=== PATIENT | male | born 1975 | race Caucasian/White ===

== ENCOUNTER 2016-12-31 16:36 | Observation (INO) | payer BC ==
[~2016-12-31 16:36] MED LIST: ISOVUE-370 76%-LOCM 1 ML ONE
--- NOTE | 2016-12-31 17:02 | RAD ---
PA AND LATERAL CHEST: 12/31/16 COMPARISON: 04/28/12 study. HISTORY: Chest pain. The heart size and mediastinum are within normal limits. The lungs are clear of infiltrates. No bony findings. IMPRESSION: 1. No active intrathoracic disease. 2. Nodular density seen in the left costophrenic angle is a stable finding as compared to the p rior exam. POS: [facility]
[2016-12-31 17:40] LABS: #Basophils 0.1 thou/uL (0.0-0.2); #Eosinphils 0.5 thou/uL (0.0-0.7); #Lymphocytes 4.7 thou/uL (1.20-3.40); #Monocytes 1.3 thou/uL (0.11-0.59); #Neutrophils 3.8 thou/uL (1.40-6.50); %Basophils 0.7 % (0.0-1.0); %Eosinophils 4.6 % (0.0-10.0); %Lymphocytes 45.1 % (21.0-51.0); %Monocytes 12.6 % (0.0-10.0); Hematocrit 42.1 % (42.0-52.0); Mean Platelet Volume 7.3 fL (7.4-10.4); Red Blood Cell (RBC) Count 4.49 mill/uL (4.70-6.10); White Blood Cell (WBC) Count 11.3 thou/uL (4.8-10.8)
[2016-12-31 17:53] LABS: ALT (SGPT) 36 U/L (8-55); AST (SGOT) 27 U/L (5-34); Alkaline Phosphatase 106 U/L (40-150); Anion Gap 13 mmol/L (10-20); BUN (Urea Nitrogen) 17 mg/dL (8.9-20.6); Bilirubin, Total 0.8 mg/dL (0.2-1.2); Calc. Creatinine Clearance 0 mL/min (70-130); Calcium 9.4 mg/dL (7.8-10.44); Carbon Dioxide 25 mmol/L (22-29); Chloride 106 mmol/L (98-107); Estimated GFR-MDRD 54; Globulin 3.6 g/dL (2.4-3.5); Lipase 7 U/L (8-78); Magnesium 2.3 mg/dL (1.6-2.6); Protein, Total 8.1 g/dL (6.0-8.3)
[2016-12-31 17:56] LABS: Troponin I 0.023 ng/mL (< 0.028)
[2016-12-31] MEDS ORDERED: Potassium Chloride 20 MEQ TAB ONE (18:16)
[2016-12-31] MEDS ORDERED: Ondansetron HCl/PF 4 MG/2 ML Vial ONE ×2 (18:17→20:49)
[2016-12-31] MEDS ORDERED: NS 0.9% w/ 20 MEQ KCL 1,000 ML IV SCH (18:30)
[2016-12-31] MEDS ORDERED: Morphine 2 MG/ML SYRINGE ONE (18:32)
[2016-12-31 18:50] LABS: Lactic Acid - Sepsis 3.2 mmol/L (0.5-2.2)
[2016-12-31 18:50] LABS: Bilirubin Negative (Negative); Blood, Urine Negative (Negative); Glucose, Urine (Dipstick) Negative (Negative); Ketone, Urine Trace mg/dL (Negative); Nitrite Negative (Negative); Protein, Urine (Dipstick) Trace mg/dL (Neg-Trace)
--- NOTE | 2016-12-31 19:39 | CT ---
CT ANGIO OF CHEST AND ABDOMEN PERFORMED WITH INTRAVENOUS CONTRAST ENHANCEMENT AND 3D RECONSTRUCTIONS : 12/31/16 HISTORY: Chest pain and abdomen pain with nausea and vomiting. Splenectomy and cholecystectomy. This was done per the aortic dissection protocol. COMPARISON: A 09/19/16 CT of the abdomen and pelvis. FINDINGS: The lungs are clear of infiltrative process. A partially calcified left lower lobe pulmonary nodule is noted consistent with a granuloma. No pleural effusion. No significant mediastinal or hilar adenopathy. The thoracic aorta is normal in caliber without signs of dissection. A small hiatal hernia is seen. CT ANGIO OF ABDOMEN: The liver appears unremarkable on this angiographic phase exam. Soft tissue nodular areas adjacent t o the origin of the splenic artery are probably related to splenosis given the history of splenectom y. The pancreas region is unremarkable. The gallbladder has been removed. Right and left adrenal gla nds are normal in appearance. Right and left kidneys are normal in size and not obstructed. There is bilateral nephrolithiasis. The appendix region appears unremarkable. The thoracic aorta is normal in caliber. There is no signs of dissection. The celiac and superior me senteric arteries as well as renal artery origins are unremarkable and there is a patent ROSALIA. IMPRESSION: 1. Bilateral nonobstructing renal calculi. 2. No evidence of aortic aneurysm or dissection. 3. 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 4. Small hiatal hernia. POS: [facility]
[2016-12-31 22:03] LABS: Anion Gap 12 mmol/L (10-20); BUN (Urea Nitrogen) 13 mg/dL (8.9-20.6); Calc. Creatinine Clearance 0 mL/min (70-130); Carbon Dioxide 23 mmol/L (22-29); Chloride 113 mmol/L (98-107); Estimated GFR-MDRD 70
[2017-01-01] MEDS ORDERED: Morphine 2 MG/ML SYRINGE ONE
[2017-01-01 01:21] LABS: Troponin I 0.017 ng/mL (< 0.028)
[2017-01-01] MEDS ORDERED: Ondansetron ODT 4 MG TAB SL PRN (01:22)
[2017-01-01] MEDS ORDERED: Ondansetron HCl/PF 4 MG/2 ML Vial IVP PRN (01:22)
[2017-01-01] MEDS ORDERED: Sodium Chloride 0.45% 1,000 ML IV SCH (01:22)
[2017-01-01] MEDS ORDERED: Morphine 2 MG/ML SYRINGE SLOW IVP PRN (01:23)
[2017-01-01] MEDS ORDERED: Promethazine HCl 25 MG/ML VIAL IVPB PRN (01:23)
[2017-01-01 01:44] VITALS: BMI 31.1
[2017-01-01] MEDS ORDERED: Acetaminophen 325 MG TAB PO PRN (03:11)
[2017-01-01] MEDS: Sodium Chloride 0.9% 1,000 ML IV SCH ×3 (03:34→18:32)
[2017-01-01 04:04] LABS: #Basophils 0.1 thou/uL (0.0-0.2); #Eosinphils 0.4 thou/uL (0.0-0.7); #Lymphocytes 4.5 thou/uL (1.20-3.40); #Monocytes 1.3 thou/uL (0.11-0.59); #Neutrophils 5.1 thou/uL (1.40-6.50); %Basophils 0.9 % (0.0-1.0); %Eosinophils 3.6 % (0.0-10.0); %Lymphocytes 39.2 % (21.0-51.0); %Monocytes 11.5 % (0.0-10.0); Hematocrit 37.4 % (42.0-52.0); Mean Platelet Volume 7.2 fL (7.4-10.4); Red Blood Cell (RBC) Count 3.97 mill/uL (4.70-6.10); White Blood Cell (WBC) Count 11.4 thou/uL (4.8-10.8)
[2017-01-01 04:18] LABS: Anion Gap 10 mmol/L (10-20); BUN (Urea Nitrogen) 10 mg/dL (8.9-20.6); Calc. Creatinine Clearance 116 mL/min (70-130); Carbon Dioxide 25 mmol/L (22-29); Chloride 111 mmol/L (98-107); Estimated GFR-MDRD 72
[2017-01-01 04:24] LABS: Troponin I 0.022 ng/mL (< 0.028)
--- NOTE | 2017-01-01 05:05 | HP ---
DATE OF ADMISSION: 01/01/2017 TIME OF SERVICE: 0300 hours. CHIEF COMPLAINT: Chest pain, abdominal pain, nausea, and vomiting. HISTORY OF PRESENT ILLNESS: Mr. Steiner is a 41-year-old white male with history of hereditary sphe rocytosis, status post splenectomy, hypertension, and anxiety, and recurrent bilateral kidney stones who presents to the emergency department today for 1 day history of chest pain/abdominal pain with some nausea and vomiting. He states it really started 1 to 2 days ago. Developed pain in his back that seemed to go up into h is neck and down into his chest, worse with movement and better with pain medicine. He has vomited 6 to 7 times only during the last 48 hours or so. Denies any diarrhea at present. He states he never really have been able to keep anything down but taking his medicines regularly be cause of the nausea. Today, he developed some bilateral facial numbness and presented to the emergency department for dakotah luation. There, he was found to have low potassium, elevated hemoglobin and hematocrit, likely secondary to h emoconcentration, creatinine 1.4, which is above his baseline. He was given 2 liters of IV fluids, was given 60 mEq of potassium with correction, and his lactic acid on arrival was 3.2, repeat was on ly down to 3.0. We were subsequently called for observation due to his increased lactic acid, hypok alemia and dehydration. He denies any other cardiac complaints. No fevers or chills, no diaphoresis. No chest pain or shor tness of breath otherwise. PAST MEDICAL HISTORY: 1. Hypertension. 2. Anxiety. 3. Hereditary spherocytosis. 4. Nephrolithiasis. PAST SURGICAL HISTORY: Includes, 1. Splenectomy. 2. Cholecystectomy. 3. Groin lymph node removal. 4. Tonsillectomy. 5. Renal stent x5. 6. Lithotripsy and stone removal in 09/2016. HOME MEDICATIONS: Zoloft 25 mg daily, metoprolol XL 25 mg daily, lisinopril 2.5 mg daily, Flexeril 10 mg p.o. t.i.d., Cushing 7.5/3.5 p.r.n., Flomax 0.4 mg p.o. at bedtime, and K-Dur 20 mEq daily. ALLERGIES: PENICILLIN and PNEUMOVAX 23. FAMILY HISTORY: Negative for clotting or bleeding disorder, no immune dysfunction. SOCIAL HISTORY: Negative for habits x3. REVIEW OF SYSTEMS: A 10-point review of systems was performed, negative for all other systems excep t as stated per HPI. PHYSICAL EXAMINATION: VITAL SIGNS: Temperature is 98.7, pulse 98, blood pressure 144/102, respiratory rate 17, satting 99 % on room air. GENERAL: He is awake. He is alert. He is oriented x3, well-developed, well-nourished, disheveled looking white male, appears to be in no acute distress. HEENT: Normocephalic and atraumatic. Pupils equal, reactive bilaterally. Mucous membrane moist. No visible lesions. No thrush. NECK: Supple, without lymphadenopathy, JVD or thyromegaly. LUNGS: Clear. He has no wheezing, no rales, no rhonchi. No prolonged expiratory phase. Good air movement. Symmetrical chest excursion. CARDIOVASCULAR: He is nontachycardic. He has normal S1 and S2. He has a normal rate and irregular rhythm. He has no audible murmurs. ABDOMEN: Soft, it is nontender. There is hyperactive bowel sounds present in all 4 quadrants. His belly is slightly tender to palpation in the superficial musculature. EXTREMITIES: No cyanosis, no clubbing, no edema. SKIN: Warm, moist, and well perfused. He has no rashes, no lesions. 2+ peripheral pulses. MUSCULOSKELETAL: Normal to inspection. He has no inflamed or hot, red joints. He has no palpable joint effusions. He has good range of motion. NEUROLOGIC: Cranial nerves II-XII grossly intact. He has no focal neurologic deficits and normal s peech. LABORATORY EVALUATION: CMP most recently normal. Potassium 3.5, creatinine down from 1.4 to 1.14. Electrolytes normal. CBC on arrival showed a white blood cell count 11.3, hemoglobin 15.1, hematoc rit 42.1, and platelets of 543,000 with a fairly normal differential. Initial presenting potassium was 2.9. RADIOGRAPHIC STUDIES: CT dissection protocol that showed bilateral nonobstructing renal stones, neg ative for dissection and prior splenectomy. Chest x-ray was negative, has a stable nodule in the kely ng at the left CVA. ASSESSMENT AND PLAN: 1. Intractable nausea and vomiting: Actually seems to be mostly resolved at this point, responds w ell to Zofran. We will continue. 2. Moderate to severe dehydration. Lactic acid was elevated, looks to be hemoconcentrated. Creati nine had bumped to 1.4 and after 2 liters of fluids down to 1.14. Lactic acid was elevated at 3.2. Continue IV fluids at 125 mL per hour and recheck labs later this morning. 3. History of hypertension: We will continue his home medications. Blood pressure 144/102 on arri eder. 4. Anxiety. Continue home medications. 5. Nephrolithiasis: Appears to be asymptomatic at this point. 6. History of hereditary spherocytosis, status post splenectomy. We will follow up with on his blo od counts today. The patient was placed in observation.
[2017-01-01] MEDS: HYDROcodone/Acetaminophen 10/325 mg Tablet PO PRN ×3 (05:20→17:32)
--- NOTE | 2017-01-01 08:03 | PDOC.EVN ---
Event Note - Event Note Event Note: Still nauseating.. Some diarrhea, mild abdominal disconfort. VS stable, afebrile PE unremarkable. ?viral gastroenteritis. Continue hydration. Check stools WBC..etc.
[2017-01-01] MEDS: Cyclobenzaprine 10 MG TAB PO SCH ×3 (08:53→20:56)
[2017-01-01] MEDS: Enoxaparin Sodium 40 MG/0.4 ML SYRINGE SC SCH (08:55)
[2017-01-01] MEDS: Famotidine/PF 20 mg/2ml Vial SLOW IVP SCH ×2 (08:55→21:06)
[2017-01-01 10:31] LABS: Amphetamine Not Detected (NotDetected); Methadone Not Detected (NotDetected); Methamphetamine Not Detected (NotDetected)
[2017-01-01] MEDS: Ondansetron HCl/PF 4 MG/2 ML Vial SLOW IVP PRN (17:33)
[2017-01-01] MEDS ORDERED: Tamsulosin HCl 0.4 MG CAP PO SCH (21:00)
[2017-01-01] MEDS ORDERED: Losartan Potassium 25 MG TAB PO SCH (21:00)
[2017-01-01] MEDS: HYDROcodone/Acetaminophen 5/325 mg Tablet PO PRN (23:12)
[2017-01-02] MEDS: Sodium Chloride 0.9% 1,000 ML IV SCH ×2 (03:28→11:24)
[2017-01-02] MEDS: Ondansetron HCl/PF 4 MG/2 ML Vial SLOW IVP PRN (06:27)
[2017-01-02] MEDS: HYDROcodone/Acetaminophen 5/325 mg Tablet PO PRN (06:28)
[2017-01-02] MEDS: Cyclobenzaprine 10 MG TAB PO SCH (08:35)
[2017-01-02] MEDS: Enoxaparin Sodium 40 MG/0.4 ML SYRINGE SC SCH (08:36)
[2017-01-02] MEDS: Famotidine/PF 20 mg/2ml Vial SLOW IVP SCH (08:37)
[2017-01-02] MEDS: Potassium Chloride 20 MEQ TAB PO SCH ×2 (11:00→14:07)
[2017-01-02] MEDS: HYDROcodone/Acetaminophen 10/325 mg Tablet PO PRN (11:01)
[2017-01-02 11:13] LABS: Anion Gap 10 mmol/L (10-20); BUN (Urea Nitrogen) 6 mg/dL (8.9-20.6); Calc. Creatinine Clearance 122 mL/min (70-130); Calcium 8.5 mg/dL (7.8-10.44); Carbon Dioxide 28 mmol/L (22-29); Chloride 106 mmol/L (98-107); Estimated GFR-MDRD 74; Magnesium 2.1 mg/dL (1.6-2.6)
[2017-01-02 12:31] VITALS: BP 142/93; TEMP 97.6
--- NOTE | 2017-01-02 12:40 | DIS ---
DATE OF ADMISSION: 01/01/2017 DATE OF DISCHARGE: 01/02/2017 DISCHARGE DIAGNOSES: 1. Acute gastroenteritis. 2. Intractable nausea and vomiting with moderate dehydration. 3. Hypokalemia due to losses. 4. Leg cramps. 5. Hypertension. 6. Hereditary spherocytosis. 7. Status post splenectomy. 8. Chronic nephrolithiasis. 9. Anxiety. CONSULTATIONS: None. PROCEDURES: None. HISTORY AND PHYSICAL: Mr. Steiner is a 41-year-old male whom I admitted early yesterday morning for intractable nausea and vomiting. Potassium was borderline low, but replaced, however, he continued to be nauseated. He was subsequently placed in observation overnight and given IV antiemetics. Hi s nausea improved, dehydration status resolved, and potassium remained fairly normal. Overnight 01/01/2017 to 01/02/2017 the patient did have some leg cramping. Potassium this morning w as slowly improved to 3.7, but leg cramps improved after administration of oral potassium chloride. He was given a total of 80 mEq today on the day of discharge and was otherwise stable for discharge . PHYSICAL EXAMINATION: The patient was seen and examined on day of discharge. Discharge plan and disposition were discussed with the patient face to face at the bedside. DISCHARGE MEDICATIONS: 1. Zofran 8 mg tablets 1/2 to 1 tablet p.o. t.i.d. p.r.n. nausea. 2. Sertraline 50 mg daily. 3. Flomax 0.4 mg p.o. at bedtime. 4. Metoprolol succinate 100 mg daily. 5. Losartan potassium 50 mg p.o. at bedtime. 6. Hydrocodone 7.5/325 one to two p.o. p.r.n. New prescription was not given. 7. Flexeril 10 mg p.o. t.i.d. FOLLOWUP APPOINTMENTS: Primary care physician at [facility] within a week. DISCHARGE ACTIVITY: As tolerated. DISCHARGE DIET: Heart healthy. Patient encouraged to eat a banana daily for potassium replacement. DISCHARGE CONDITION: Stable. DISPOSITION: The patient is being discharged home via private vehicle.
== END 2017-01-02 14:36 | disposition home or self-care (01) ==
LOC: ERS 16:36 → 2SW 01-01 01:21
PROVIDERS: ADMIT Internal Medicine Infectious Disease; ATTEND Internal Medicine Infectious Disease
DX: K52.9 Noninfective gastroenteritis and colitis, unspecified (principal); E87.6 Hypokalemia; R25.2 Cramp and spasm; I10 Essential (primary) hypertension; D58.0 Hereditary spherocytosis; N20.0 Calculus of kidney; F41.9 Anxiety disorder, unspecified; Z88.0 Allergy status to penicillin; Z88.7 Allergy status to serum and vaccine; Z79.899 Other long term (current) drug therapy; Z90.81 Acquired absence of spleen; Z90.49 Acquired absence of other specified parts of digestive tract; Z95.828 Presence of other vascular implants and grafts; Z98.890 Other specified postprocedural states
CPT/HCPCS: 36415; 71020; 71275; 80048; 80053; 80306; 81003; 82553; 83605; 83630; 83690; 83735; 84484; 85025; 87040; 87798; 93005; 96361; 96365; 96366; 96372; 96375; 96376; A4216; G0378; J1170; J1650; J2270; J2405; J2550; S0028

== ENCOUNTER 2017-03-11 14:55 | Emergency (ER) | payer BC ==
[2017-03-11 15:31] LABS: Bilirubin Small (Negative); Blood, Urine Trace (Negative); Clarity CLEAR (Clear); Glucose, Urine (Dipstick) Negative (Negative); Leukocyte Small (Negative); Nitrite Negative (Negative); Protein, Urine (Dipstick) 30 mg/dL (Neg-Trace); pH, Urine 6.5 (5.0-9.0)
[2017-03-11 15:33] LABS: Bacteria/HPF None Seen HPF (None Seen); Pathc Cast-AUWi Flag 1.08 (0-2.49); Squamous Epithelial 0-3 HPF (0-3)
[2017-03-11 15:46] LABS: Crystals/HPF RARE CA OXALATE HPF (Negative); Hyaline Casts/LPF 4-6 HYALINE CAST LPF (0-3 Hyaline); Renal Epithelial None Seen HPF (0-3); Transitional Epithelial NONE SEEN HPF (0-3)
[2017-03-11] MEDS ORDERED: Ketorolac Tromethamine 30 MG/ML VIAL ONE (16:50)
[2017-03-11] MEDS ORDERED: Ondansetron HCl/PF 4 MG/2 ML Vial ONE (16:50)
[2017-03-11] MEDS ORDERED: Morphine 4 MG/ML VIAL ONE (16:50)
[2017-03-11 17:14] LABS: #Eosinphils 0.2 thou/uL (0.0-0.7); #Lymphocytes 4.6 thou/uL (1.20-3.40); #Monocytes 1.3 thou/uL (0.11-0.59); #Neutrophils 3.8 thou/uL (1.40-6.50); %Basophils 0.3 % (0.0-1.0); %Eosinophils 2.4 % (0.0-10.0); %Neutrophils 38.3 % (42.0-75.0); Anion Gap 16 mmol/L (10-20); BUN (Urea Nitrogen) 15 mg/dL (8.9-20.6); Calc. Creatinine Clearance 0 mL/min (70-130); Calcium 10.6 mg/dL (7.8-10.44); Carbon Dioxide 22 mmol/L (22-29); Chloride 105 mmol/L (98-107); Estimated GFR-MDRD 59; Glucose 109 mg/dL (70-105); Hemoglobin 15.4 g/dL (14.0-18.0); Mean Corpuscular HGB CONC 35.9 g/dL (32.0-36.0); Mean Corpuscular Hemoglobin 32.7 pg (27.0-31.0); Mean Corpuscular Volume 91.3 fl (80.0-94.0); Mean Platelet Volume 7.7 fL (7.4-10.4); Platelet Count 601 thou/uL (130-400); RBC Distribution Width 12.2 % (11.5-14.5); Red Blood Cell (RBC) Count 4.71 mill/uL (4.70-6.10); Sodium 140 mmol/L (136-145)
[2017-03-11 17:18] LABS: Potassium 2.5 mmol/L (3.5-5.1)
[2017-03-11] MEDS ORDERED: HYDROmorphone 0.5 MG/0.5 ML SYRINGE ONE (18:01)
[2017-03-11] MEDS ORDERED: Potassium Chloride 20 MEQ TAB ONE (18:50)
[2017-03-11] MEDS ORDERED: Ciprofloxacin 500 MG TAB ONE (18:50)
--- NOTE | 2017-03-11 19:08 | RAD ---
KUB: 03/11/17 INDICATION: Left sided flank pain. COMPARISON: Prior exam dated 10/05/16. FINDINGS: There is stable bilateral nephrolithiasis. No suspicious calcification is seen along the expected cou rse of the renal collecting systems. There is moderate amount of retained stool within the colon slig htly limiting image detail. There are multiple phleboliths within the lower pelvis which is similar. Osseous structures appear similar. IMPRESSION: 1. Stable nephrolithiasis. 2. Moderate amount of retained stool within the colon. POS: [facility]
== END 2017-03-11 19:00 | disposition home or self-care (01) ==
LOC: ERS 14:55
DX: N20.0 Calculus of kidney (principal); E87.6 Hypokalemia; F41.9 Anxiety disorder, unspecified; Z79.891 Long term (current) use of opiate analgesic; Z79.899 Other long term (current) drug therapy
CPT/HCPCS: 74000; 80048; 81003; 81015; 85025; 87086; 96374; 96375; J1170; J1885; J2270; J2405

== ENCOUNTER 2017-03-13 11:26 | Emergency (ER) | payer BC ==
[2017-03-13] MEDS ORDERED: Ondansetron HCl/PF 4 MG/2 ML Vial ONE (12:29)
[2017-03-13] MEDS ORDERED: Ketorolac Tromethamine 30 MG/ML VIAL ONE (12:29)
[2017-03-13] MEDS ORDERED: Morphine 4 MG/ML VIAL ONE (12:29)
[2017-03-13 12:30] LABS: #Eosinphils 0.3 thou/uL (0.0-0.7); #Lymphocytes 3.8 thou/uL (1.20-3.40); #Monocytes 1.3 thou/uL (0.11-0.59); #Neutrophils 3.7 thou/uL (1.40-6.50); %Basophils 0.2 % (0.0-1.0); %Eosinophils 3.6 % (0.0-10.0); %Monocytes 13.8 % (0.0-10.0); %Neutrophils 40.5 % (42.0-75.0); Hemoglobin 15.6 g/dL (14.0-18.0); Mean Corpuscular HGB CONC 35.2 g/dL (32.0-36.0); Mean Corpuscular Hemoglobin 32.5 pg (27.0-31.0); Mean Corpuscular Volume 92.3 fl (80.0-94.0); Mean Platelet Volume 7.7 fL (7.4-10.4); Platelet Count 641 thou/uL (130-400); RBC Distribution Width 12.4 % (11.5-14.5); Red Blood Cell (RBC) Count 4.81 mill/uL (4.70-6.10); White Blood Cell (WBC) Count 9.1 thou/uL (4.8-10.8)
[2017-03-13 12:44] LABS: Anion Gap 16 mmol/L (10-20); BUN (Urea Nitrogen) 15 mg/dL (8.9-20.6); Calc. Creatinine Clearance 0 mL/min (70-130); Calcium 10.4 mg/dL (7.8-10.44); Carbon Dioxide 23 mmol/L (22-29); Chloride 105 mmol/L (98-107); Estimated GFR-MDRD 63; Glucose 94 mg/dL (70-105); Sodium 141 mmol/L (136-145)
[2017-03-13 13:20] LABS: Bilirubin Negative (Negative); Blood, Urine Negative (Negative); Clarity CLEAR (Clear); Glucose, Urine (Dipstick) Negative (Negative); Leukocyte Trace (Negative); Nitrite Negative (Negative); Protein, Urine (Dipstick) Trace mg/dL (Neg-Trace); Specific Gravity, Urine 1.018 (1.002-1.036)
[2017-03-13 13:22] LABS: Bacteria/HPF None Seen HPF (None Seen); Hyaline Casts/LPF 4-6 HYALINE CAST LPF (0-3 Hyaline); RBC/HPF 0-3 HPF (0-3); Squamous Epithelial 0-3 HPF (0-3)
[2017-03-13] MEDS ORDERED: HYDROmorphone 0.5 MG/0.5 ML SYRINGE ONE (14:52)
--- NOTE | 2017-03-13 15:30 | CT ---
CT ABDOMEN NONCONTRAST CT PELVIS NONCONTRAST: (urolithiasis protocol) DATE: 03/13/17. HISTORY: A 41-year-old male with left flank pain. COMPARISON: 11/28/16. TECHNIQUE: IV injection of iodinated contrast media: none Oral contrast media: none FINDINGS: Other than for urolithiasis, the lack of IV and oral contrast limits the evaluation. Again noted are multiple mildly enlarged bilateral paraaortic lymph nodes, left greater than right, a nd mild paraortic fat stranding, left greater than right. This is chronic, and has not changed since 05/26/12. There is no hydroureteronephrosis. There is a punctate 2 mm focal calcification very clos e to the left mid-distal ureter at the S2-3 level. On the report of 05/26/12, it was thought that thi s was a calculus within the ureter, but this has not changed in position on previous CTs of 05/26/12, 07/28/14, and 11/28/16. Therefore, this is a calcification in an adjacent blood vessel rather than a u reteral calculus. There is no definite calculus visualized within the ureters or urinary bladder. T here is a large number of small bilateral renal calculi, throughout the upper, mid, and lower poles, ranging in from size from 1 mm up to approximately 4 or 5 mm, similar to 11/28/16, but greatly increas ed in number compared to 05/26/12 and moderately increased in size and number since 07/28/14. Again no dmitry are the cholecystectomy clips. Multiple surgical clips in the left upper quadrant, with absence of the spleen. Normal appendix. Within the limitations of a noncontrast scan, no abnormality is jolynn ntified involving the abdominal aorta, adrenals, or pancreas. There are geographic areas of differen tial attenuation involving various regions of the liver, a subtle and mild finding. This probably re presents fatty infiltration and focal areas of fatty sparring. No small bowel dilation. No free flu id within the abdominal cavity or pelvic cavity. Lung bases are clear. No pleural effusion. No sig ns of acute colonic diverticulitis. No abscess or pneumoperitoneum. No interval change overall sinc e 11/28/16. IMPRESSION: 1. Extensive bilateral nephrolithiasis, progressively increasing over the years. 2. No obstructive uropathy. 3. Heterogeneous attenuation of the liver. The evaluation is limited, but this would statistically most likely represent heterogeneous hepatic steatosis. 4. Status post splenectomy. 5. Status post cholecystectomy. CHRISTIANO Gonzalez POS: [facility]
[2017-03-13 16:42] LABS: Lactic Acid 1.3 mmol/L (0.5-2.2)
== END 2017-03-13 18:25 | disposition home or self-care (01) ==
LOC: ERS 11:26
DX: R10.9 Unspecified abdominal pain (principal); I10 Essential (primary) hypertension; F41.9 Anxiety disorder, unspecified; Z79.899 Other long term (current) drug therapy
CPT/HCPCS: 36415; 74176; 80048; 81003; 81015; 83605; 85025; 87086; 96361; 96374; 96375; J1170; J1885; J2270; J2405

== ENCOUNTER 2017-04-23 14:09 | Emergency (ER) | payer BC ==
[2017-04-23 14:29] LABS: Bilirubin Negative (Negative); Blood, Urine Negative (Negative); Clarity CLEAR (Clear); Glucose, Urine (Dipstick) Negative (Negative); Leukocyte Small (Negative); Nitrite Negative (Negative); Protein, Urine (Dipstick) Negative (Neg-Trace); Specific Gravity, Urine 1.016 (1.002-1.036); Urobilinogen 0.2 mg/dL (0.2-1.0); pH, Urine 6.5 (5.0-9.0)
[2017-04-23 14:31] LABS: Bacteria/HPF None Seen HPF (None Seen); Hyaline Casts/LPF 0-3 HYALINE CAST LPF (0-3 Hyaline); Pathc Cast-AUWi Flag 0.27 (0-2.49); RBC/HPF 0-3 HPF (0-3); Squamous Epithelial 0-3 HPF (0-3)
[2017-04-23] MEDS ORDERED: Ketorolac Tromethamine 30 MG/ML VIAL ONE (15:05)
[2017-04-23] MEDS ORDERED: Ondansetron HCl/PF 4 MG/2 ML Vial ONE (15:05)
[2017-04-23 15:15] LABS: #Basophils 0.1 thou/uL (0.0-0.2); #Eosinphils 0.5 thou/uL (0.0-0.7); #Lymphocytes 3.8 thou/uL (1.20-3.40); #Monocytes 1.2 thou/uL (0.11-0.59); #Neutrophils 5.5 thou/uL (1.40-6.50); %Basophils 0.6 % (0.0-1.0); %Eosinophils 4.8 % (0.0-10.0); %Lymphocytes 34.2 % (21.0-51.0); %Neutrophils 49.4 % (42.0-75.0); Hemoglobin 15.7 g/dL (14.0-18.0); Mean Corpuscular HGB CONC 36.7 g/dL (32.0-36.0); Mean Corpuscular Hemoglobin 33.7 pg (27.0-31.0); Mean Corpuscular Volume 91.9 fl (80.0-94.0); Mean Platelet Volume 7.6 fL (7.4-10.4); Platelet Count 594 thou/uL (130-400); RBC Distribution Width 12.2 % (11.5-14.5); Red Blood Cell (RBC) Count 4.65 mill/uL (4.70-6.10); White Blood Cell (WBC) Count 11.3 thou/uL (4.8-10.8)
[2017-04-23 15:26] LABS: ALT (SGPT) 26 U/L (8-55); AST (SGOT) 19 U/L (5-34); Albumin 4.8 g/dL (3.5-5.0); Alkaline Phosphatase 113 U/L (40-150); Anion Gap 16 mmol/L (10-20); BUN (Urea Nitrogen) 19 mg/dL (8.9-20.6); Bilirubin, Total 1.2 mg/dL (0.2-1.2); Calc. Creatinine Clearance 0 mL/min (70-130); Calcium 10.2 mg/dL (7.8-10.44); Carbon Dioxide 23 mmol/L (22-29); Chloride 104 mmol/L (98-107); Estimated GFR-MDRD 62; Globulin 3.5 g/dL (2.4-3.5); Glucose 94 mg/dL (70-105); Lipase 4 U/L (8-78); Potassium 3.2 mmol/L (3.5-5.1); Protein, Total 8.3 g/dL (6.0-8.3); Sodium 140 mmol/L (136-145)
[2017-04-23] MEDS ORDERED: Ciprofloxacin 500 MG TAB ONE (15:38)
--- NOTE | 2017-04-23 15:55 | CT ---
NONCONTRAST CT ABDOMEN AND PELVIS: Date: 04-23-17 History: Left flank pain since 0100 this morning. History of kidney stones. Comparison: 03-13-17 FINDINGS: Multiple nonobstructing bilateral renal calculi are again seen. No ureteral calculus is visualized. T here is a punctate calcification along the course of the mid left ureter, but this is most likely rel ated to a calcification within a vessel as the nonenhanced ureter appears to oppose this calcificatio n and this is not related to a ureteral calculus, especially given stability over multiple prior stud ies dating back to 2014. There is no hydronephrosis. Post cholecystectomy changes are noted. Calcified nodule left lung base is again seen and likely related to calcified granuloma. Lung bases a re otherwise clear except for minimal atelectasis at the right lateral costophrenic angle. The liver, pancreas, bilateral adrenal glands, and urinary bladder demonstrate a normal nonenhanced C T appearance. Post-surgical changes related to splenectomy are again noted. The appendix is visualized and normal in caliber. Small fat containing left inguinal hernia is noted. There has been no interval change compared to the prior exam. IMPRESSION: 1. Multiple nonobstructing bilateral renal calculi. No ureteral calculus is seen, and there is no hyd ronephrosis. 2. No CT evidence of appendicitis. 3. Splenectomy and cholecystectomy. 4. Fat containing umbilical hernia as well as a very small fat containing left inguinal hernia. POS: [facility]
== END 2017-04-23 15:37 | disposition home or self-care (01) ==
LOC: ERS 14:09
DX: N39.0 Urinary tract infection, site not specified (principal); I10 Essential (primary) hypertension; E87.6 Hypokalemia; F41.9 Anxiety disorder, unspecified; Z79.899 Other long term (current) drug therapy
CPT/HCPCS: 74176; 80053; 81003; 81015; 83690; 85025; 94760; 96374; 96375; J1885; J2405

== ENCOUNTER 2017-05-27 14:30 | Emergency (ER) | payer BC ==
[2017-05-27] MEDS ORDERED: Ondansetron ODT 8 MG TAB ONE (15:39)
[2017-05-27 15:54] LABS: Bilirubin Negative (Negative); Blood, Urine Negative (Negative); Clarity CLEAR (Clear); Glucose, Urine (Dipstick) Negative (Negative); Leukocyte Small (Negative); Nitrite Negative (Negative); Protein, Urine (Dipstick) 30 mg/dL (Neg-Trace); Specific Gravity, Urine 1.022 (1.002-1.036); pH, Urine 6.5 (5.0-9.0)
[2017-05-27 15:56] LABS: Bacteria/HPF None Seen HPF (None Seen); Pathc Cast-AUWi Flag 0.81 (0-2.49); Squamous Epithelial 0-3 HPF (0-3)
[2017-05-27 16:01] LABS: Hyaline Casts/LPF 0-3 HYALINE CAST LPF (0-3 Hyaline)
[2017-05-27 16:02] LABS: Renal Epithelial None Seen HPF (0-3); Transitional Epithelial NONE SEEN HPF (0-3)
--- NOTE | 2017-05-27 16:56 | RAD ---
CHEST PA AND LATERAL TWO VIEWS: 05/27/17 HISTORY: 41-year-old male with history of cough and congestion. COMPARISON: 12/31/16. Heart size is normal. The lungs are clear. IMPRESSION: No acute intrathoracic disease. POS: [facility]
== END 2017-05-27 16:41 | disposition home or self-care (01) ==
LOC: ERS 14:30
DX: J40 Bronchitis, not specified as acute or chronic (principal); N39.0 Urinary tract infection, site not specified; I10 Essential (primary) hypertension; F41.9 Anxiety disorder, unspecified; Z79.899 Other long term (current) drug therapy
CPT/HCPCS: 71046; 81003; 81015; J7620

== ENCOUNTER 2017-07-17 15:43 | Emergency (ER) | payer BC ==
[2017-07-17 16:11] LABS: Bilirubin Negative (Negative); Blood, Urine Trace (Negative); Clarity CLEAR (Clear); Glucose, Urine (Dipstick) Negative (Negative); Leukocyte Moderate (Negative); Nitrite Negative (Negative); Protein, Urine (Dipstick) Negative (Neg-Trace); Specific Gravity, Urine 1.023 (1.002-1.036); Urobilinogen 0.2 mg/dL (0.2-1.0); pH, Urine 5.5 (5.0-9.0)
[2017-07-17 16:13] LABS: Bacteria/HPF None Seen HPF (None Seen); Hyaline Casts/LPF 0-3 HYALINE CAST LPF (0-3 Hyaline); Pathc Cast-AUWi Flag 0.29 (0-2.49); RBC/HPF 0-3 HPF (0-3); Squamous Epithelial 0-3 HPF (0-3)
[2017-07-17 16:15] LABS: Renal Epithelial None Seen HPF (0-3); Transitional Epithelial NONE SEEN HPF (0-3)
[2017-07-17] MEDS ORDERED: Ondansetron ODT 8 MG TAB ONE (16:35)
[2017-07-17] MEDS ORDERED: Ketorolac Tromethamine 60 MG/2 ML VIAL ONE (16:35)
== END 2017-07-17 17:00 | disposition home or self-care (01) ==
LOC: ERS 15:43
DX: G89.29 Other chronic pain (principal); M54.5 Low back pain; R31.9 Hematuria, unspecified; I10 Essential (primary) hypertension; F41.9 Anxiety disorder, unspecified; Z79.899 Other long term (current) drug therapy
CPT/HCPCS: 81003; 81015; 96372; J1885

== ENCOUNTER 2017-11-19 12:49 | Emergency (ER) | payer BC ==
[2017-11-19 13:18] LABS: Bilirubin Negative (Negative); Blood, Urine Negative (Negative); Clarity CLEAR (Clear); Glucose, Urine (Dipstick) Negative (Negative); Leukocyte Small (Negative); Nitrite Negative (Negative); Protein, Urine (Dipstick) Negative (Neg-Trace); Specific Gravity, Urine 1.018 (1.002-1.036); pH, Urine 6.5 (5.0-9.0)
[2017-11-19 13:20] LABS: Bacteria/HPF None Seen HPF (None Seen); Pathc Cast-AUWi Flag 1.01 (0-2.49); RBC/HPF 0-3 HPF (0-3); Squamous Epithelial 0-3 HPF (0-3)
[2017-11-19 13:34] LABS: #Basophils 0.1 thou/uL (0.0-0.2); #Eosinphils 0.7 thou/uL (0.0-0.7); #Lymphocytes 3.5 thou/uL (1.20-3.40); #Neutrophils 5.2 thou/uL (1.40-6.50); %Basophils 0.5 % (0.0-1.0); %Eosinophils 6.9 % (0.0-10.0); %Lymphocytes 33.4 % (21.0-51.0); %Monocytes 9.7 % (0.0-10.0); %Neutrophils 49.5 % (42.0-75.0); Hemoglobin 15.3 g/dL (14.0-18.0); Mean Corpuscular HGB CONC 36.3 g/dL (32.0-36.0); Mean Corpuscular Hemoglobin 33.8 pg (27.0-31.0); Mean Corpuscular Volume 93.2 fL (78.0-98.0); Mean Platelet Volume 7.3 fL (7.4-10.4); Platelet Count 615 thou/uL (130-400); RBC Distribution Width 13.1 % (11.5-14.5); Red Blood Cell (RBC) Count 4.53 mill/uL (4.70-6.10); White Blood Cell (WBC) Count 10.4 thou/uL (4.8-10.8)
[2017-11-19 13:35] LABS: Crystals/HPF None Seen HPF (Negative); Hyaline Casts/LPF 0-3 HYALINE CAST LPF (0-3 Hyaline); Oval Fat Bodies/HPF None Seen HPF (None Seen); Renal Epithelial None Seen HPF (0-3); Transitional Epithelial NONE SEEN HPF (0-3); Trichomonas/HPF None Seen HPF (None Seen)
[2017-11-19 13:47] LABS: ALT (SGPT) 17 U/L (8-55); AST (SGOT) 18 U/L (5-34); Albumin 4.3 g/dL (3.5-5.0); Alkaline Phosphatase 104 U/L (40-150); Anion Gap 14 mmol/L (10-20); BUN (Urea Nitrogen) 19 mg/dL (8.9-20.6); Bilirubin, Total 1.3 mg/dL (0.2-1.2); Calc. Creatinine Clearance 0 mL/min (70-130); Carbon Dioxide 26 mmol/L (22-29); Chloride 107 mmol/L (98-107); Estimated GFR-MDRD 61; Globulin 3.9 g/dL (2.4-3.5); Glucose 103 mg/dL (70-105); Lipase 9 U/L (8-78); Potassium 4.1 mmol/L (3.5-5.1); Protein, Total 8.2 g/dL (6.0-8.3); Sodium 143 mmol/L (136-145)
[2017-11-19] MEDS ORDERED: Ketorolac Tromethamine 60 MG/2 ML VIAL ONE (14:09)
[2017-11-19] MEDS ORDERED: Ondansetron ODT 4 MG TAB ONE (14:32)
== END 2017-11-19 14:35 | disposition home or self-care (01) ==
LOC: ERS 12:49
DX: N39.0 Urinary tract infection, site not specified (principal); I10 Essential (primary) hypertension; F41.9 Anxiety disorder, unspecified
CPT/HCPCS: 36415; 80053; 81003; 81015; 83690; 85025; 96372; J1885; Q0162

== ENCOUNTER 2018-09-10 14:21 | Emergency (ER) | payer BC ==
[2018-09-10] MEDS ORDERED: Ondansetron ODT 4 MG TAB ONE (15:01)
[2018-09-10 16:26] LABS: #Eosinphils 0.2 thou/uL (0.0-0.7); #Monocytes 1.6 thou/uL (0.11-0.59); #Neutrophils 9.1 thou/uL (1.40-6.50); %Basophils 0.3 % (0.0-1.0); %Eosinophils 1.3 % (0.0-10.0); %Lymphocytes 26.7 % (21.0-51.0); %Monocytes 10.8 % (0.0-10.0); Hemoglobin 15.5 g/dL (14.0-18.0); Mean Corpuscular HGB CONC 36.6 g/dL (32.0-36.0); Mean Corpuscular Hemoglobin 33.2 pg (27.0-31.0); Mean Corpuscular Volume 90.7 fL (78.0-98.0); Mean Platelet Volume 8.4 fL (7.4-10.4); Platelet Count 488 thou/uL (130-400); RBC Distribution Width 12.5 % (11.5-14.5); Red Blood Cell (RBC) Count 4.66 mill/uL (4.70-6.10); White Blood Cell (WBC) Count 14.9 thou/uL (4.8-10.8)
[2018-09-10 16:27] LABS: ALT (SGPT) 21 U/L (8-55); AST (SGOT) 18 U/L (5-34); Albumin 4.8 g/dL (3.5-5.0); Alkaline Phosphatase 113 U/L (40-150); Anion Gap 16 mmol/L (10-20); BUN (Urea Nitrogen) 13 mg/dL (8.9-20.6); Bilirubin, Total 1.6 mg/dL (0.2-1.2); Calc. Creatinine Clearance 0 mL/min (70-130); Calcium 9.7 mg/dL (7.8-10.44); Carbon Dioxide 27 mmol/L (22-29); Chloride 104 mmol/L (98-107); Estimated GFR-MDRD 55; Globulin 3.2 g/dL (2.4-3.5); Glucose 90 mg/dL (70-105); Sodium 144 mmol/L (136-145)
[2018-09-10 16:32] LABS: Potassium 2.9 mmol/L (3.5-5.1)
--- NOTE | 2018-09-10 16:54 | CT ---
CT ABDOMEN AND PELVIS WITHOUT IV CONTRAST: INDICATIONS: History of left-sided flank pain. COMPARISON: 04/23/2017 FINDINGS: No definite ureteral calculus or hydronephrosis is evident. The small gonadal vein phlebolith seen o n the left, on image 65 of series 2, was present on the comparison examination in 2018, as well as th e comparison examination in 2017. The renal stone burden appears stable. The largest stone within t he right mid kidney is seen, measuring 3 mm. The largest stone in the mid to lower left kidney measu res 4.8 mm. There is a stable calcified granuloma in the left lower lobe. The gallbladder is surgically absent. No focal hepatic lesion is grossly evident. The spleen is surgically absent. Small nodules seen nadya r the gastrosplenic ligament are stable, likely related to splenosis. The pancreas and adrenal gland s appear within normal limits. There is a normal appendix in the right lower quadrant. Unopacified large and small bowel are largely decompressed. There is a fat-containing umbilical eusebio ia. There is scattered degenerative change osteoarthritic change. No definite acute osseous abnormality is evident. IMPRESSION: 1. Stable nephrolithiasis. No hydronephrosis or ureteral calculus demonstrated. 2. Stable left gonadal vein phlebolith. 3. Stable changes of splenectomy and suspected splenosis within the gastrosplenic ligament. 4. Cholecystectomy. 5. Calcified granuloma within the left lower lobe. 6. Other chronic findings as above. POS: [facility]
[2018-09-10] MEDS ORDERED: Morphine 4 MG/ML VIAL ONE (18:15)
[2018-09-10] MEDS ORDERED: Ketorolac Tromethamine 60 MG/2 ML VIAL ONE (18:15)
[2018-09-10] MEDS ORDERED: Ondansetron PF 4 MG/2 ML Vial ONE (18:15)
[2018-09-10 19:40] LABS: Bilirubin Negative (Negative); Blood, Urine Trace (Negative); Clarity CLEAR (Clear); Glucose, Urine (Dipstick) Negative (Negative); Leukocyte Negative (Negative); Nitrite Negative (Negative); Protein, Urine (Dipstick) Negative (Neg-Trace)
[2018-09-10] MEDS ORDERED: HYDROmorphone 0.5 MG/0.5 ML SYRINGE ONE ×2 (19:40→21:49)
[2018-09-10 19:45] LABS: Bacteria/HPF None Seen HPF (None Seen); Hyaline Casts/LPF 0-3 HYALINE CAST LPF (0-3 Hyaline); Pathc Cast-AUWi Flag 0.13 (0-2.49); RBC/HPF 0-3 HPF (0-3); Squamous Epithelial None Seen HPF (0-3); WBC/HPF 0-3 HPF (0-3)
== END 2018-09-10 22:20 | disposition home or self-care (01) ==
LOC: ERS 14:21
DX: N20.0 Calculus of kidney (principal); F41.9 Anxiety disorder, unspecified
CPT/HCPCS: 36415; 74176; 80053; 81003; 81015; 85025; 87086; 96374; 96375; 96376; J1170; J1885; J2270; J2405; Q0162

== ENCOUNTER 2018-10-01 17:53 | Emergency (ER) | payer BC ==
[2018-10-01 18:29] LABS: #Eosinphils 0.2 thou/uL (0.0-0.7); #Lymphocytes 3.5 thou/uL (1.20-3.40); #Monocytes 2.2 thou/uL (0.11-0.59); #Neutrophils 11.3 thou/uL (1.40-6.50); %Basophils 0.2 % (0.0-1.0); %Eosinophils 1.4 % (0.0-10.0); %Monocytes 12.7 % (0.0-10.0); %Neutrophils 65.7 % (42.0-75.0); Hemoglobin 14.3 g/dL (14.0-18.0); Mean Corpuscular HGB CONC 36.5 g/dL (32.0-36.0); Mean Corpuscular Hemoglobin 33.3 pg (27.0-31.0); Mean Corpuscular Volume 91.2 fL (78.0-98.0); Mean Platelet Volume 7.3 fL (7.4-10.4); Platelet Count 485 thou/uL (130-400); RBC Distribution Width 12.4 % (11.5-14.5); Red Blood Cell (RBC) Count 4.29 mill/uL (4.70-6.10); White Blood Cell (WBC) Count 17.3 thou/uL (4.8-10.8)
[2018-10-01 18:50] LABS: ALT (SGPT) 22 U/L (8-55); AST (SGOT) 18 U/L (5-34); Albumin 4.4 g/dL (3.5-5.0); Alkaline Phosphatase 88 U/L (40-150); Anion Gap 15 mmol/L (10-20); BUN (Urea Nitrogen) 23 mg/dL (8.9-20.6); Bilirubin, Total 0.9 mg/dL (0.2-1.2); Calc. Creatinine Clearance 0 mL/min (70-130); Calcium 9.5 mg/dL (7.8-10.44); Carbon Dioxide 26 mmol/L (22-29); Chloride 106 mmol/L (98-107); Estimated GFR-MDRD 46; Globulin 3.1 g/dL (2.4-3.5); Glucose 126 mg/dL (70-105); Lipase 5 U/L (8-78); Protein, Total 7.5 g/dL (6.0-8.3); Sodium 144 mmol/L (136-145)
[2018-10-01] MEDS ORDERED: Ondansetron PF 4 MG/2 ML Vial ONE (20:00)
[2018-10-01] MEDS ORDERED: Ketorolac Tromethamine 30 MG/ML VIAL ONE (20:00)
--- NOTE | 2018-10-01 20:35 | CT ---
CT ABDOMEN AND PELVIS WITHOUT CONTRAST: INDICATIONS: Left flank pain. COMPARISON: Prior CTs from 09/10/2018 and 04/23/2017. FINDINGS: The lung bases are clear. Calcified granuloma in the left lung base is again noted. The liver is unremarkable. The spleen has been removed. The pancreas is unremarkable. The adrenal g lands are normal. Numerous bilateral nonobstructing calculi seen in the upper collecting structures of both kidneys. T hese numerous calcifications have been previously described. The overall number and size of these re nal calcifications does not appear significantly changed. No evidence of ureteral calculus. No evidence of hydronephrosis or urinary obstruction. The urinary bladder is unremarkable. The bowel loops are unremarkable. The appendix appears normal. There is a tiny calculus in the left pelvis, adjacent to the left ureter, which is stable from the pr ior exams and appears to lie outside the ureter and is probably vascular, as noted previously. IMPRESSION: Numerous bilateral renal calculi do not appear significantly changed in size and number when compared to the prior study. There is no evidence of ureteral calculus or urinary obstruction. POS: [facility]
[2018-10-01 21:33] LABS: Bacteria/HPF None Seen HPF (None Seen); Bilirubin Negative (Negative); Blood, Urine 1+ (Negative); Clarity Clear (Clear); Glucose, Urine (Dipstick) Normal (Negative); Leukocyte Negative Leu/uL (Negative); Nitrite Negative (Negative); Protein, Urine (Dipstick) 10 mg/dL (Neg-Trace); Squamous Epithelial None Seen HPF (0-3); Urobilinogen Normal mg/dL (Less than 2)
[2018-10-01] MEDS ORDERED: Morphine 4 MG/ML VIAL ONE (21:51)
== END 2018-10-01 22:15 | disposition home or self-care (01) ==
LOC: ERS 17:53
DX: N20.0 Calculus of kidney (principal); N39.0 Urinary tract infection, site not specified; I10 Essential (primary) hypertension; F41.9 Anxiety disorder, unspecified; Z79.899 Other long term (current) drug therapy
CPT/HCPCS: 36415; 74176; 80053; 81003; 81015; 83690; 85025; 87086; 93005; 96361; 96374; 96375; J1885; J2270; J2405

== ENCOUNTER 2018-10-22 16:20 | Outpatient (CLI) | payer BC ==
[2018-10-22 17:08] LABS: INR-International Normal Ratio 0.9; Prothrombin Time 12.6 SEC (12.0-14.7)
[2018-10-22 17:22] LABS: Bacteria/HPF None Seen HPF (None Seen); Bilirubin Negative (Negative); Blood, Urine 2+ (Negative); Clarity Clear (Clear); Glucose, Urine (Dipstick) Normal (Negative); Leukocyte 25 Leu/uL (Negative); Mucous/LPF Rare LPF (<2+); Nitrite Negative (Negative); Protein, Urine (Dipstick) 30 mg/dL (Neg-Trace); Squamous Epithelial 0-3 HPF (0-3); Urobilinogen Normal mg/dL (Less than 2)
[2018-10-22 17:26] LABS: Hemoglobin 15.1 g/dL (14.0-18.0); Mean Corpuscular HGB CONC 37.2 g/dL (32.0-36.0); Mean Corpuscular Hemoglobin 33.9 pg (27.0-31.0); Mean Platelet Volume 8.3 fL (7.4-10.4); Platelet Count 551 thou/uL (130-400); RBC Distribution Width 12.5 % (11.5-14.5); Red Blood Cell (RBC) Count 4.45 mill/uL (4.70-6.10); White Blood Cell (WBC) Count 10.5 thou/uL (4.8-10.8)
[2018-10-22 17:32] LABS: Anion Gap 12 mmol/L (10-20); BUN (Urea Nitrogen) 18 mg/dL (8.9-20.6); Calc. Creatinine Clearance 0 mL/min (70-130); Calcium 10.1 mg/dL (7.8-10.44); Carbon Dioxide 30 mmol/L (22-29); Chloride 104 mmol/L (98-107); Estimated GFR-MDRD 51; Glucose 122 mg/dL (70-105); Potassium 3.4 mmol/L (3.5-5.1); Sodium 143 mmol/L (136-145)
--- NOTE | 2018-10-23 22:58 | EKG ---
Test Reason : Blood Pressure : / mmHG Vent. Rate : 104 BPM Atrial Rate : 104 BPM P-R Int : 156 ms QRS Dur : 100 ms QT Int : 348 ms P-R-T Axes : 036 058 -23 degrees QTc Int : 457 ms Sinus tachycardia with Premature atrial complexes T wave abnormality, consider inferior ischemia Abnormal ECG When compared with ECG of 01-OCT-2018 20:42, Premature atrial complexes are now Present T wave inversion now evident in Inferior leads Confirmed by Joseph ARDON ([id number]) on 10/23/2018 10:57:57 PM Referred By: DEBORAH Confirmed By:Joseph ARDON
== END 2018-10-22 16:21 | disposition home or self-care (01) ==
LOC: LABBT 16:20
PROVIDERS: ATTEND Urology
DX: Z01.818 Encounter for other preprocedural examination (principal); N20.0 Calculus of kidney
CPT/HCPCS: 80048; 81001; 85027; 85610; 85730; 87086; 93005; 93010

== ENCOUNTER → 2018-10-25 | Day surgery (SDC) | payer BC ==
[2018-10-22 16:54] VITALS: BMI 34.0
[~2018-10-25] MED LIST changes: +Fentanyl 100 MCG/2 ML VIAL ONE; +HYDROcodone/Acetaminophen 5/325 mg Tablet ONE; -ISOVUE-370 76%-LOCM 1 ML ONE; +Iothalamate Meglumine 60% 50 ML VIAL FS ONE; +Labetalol HCl 100 MG/20 ML VIAL ONE; +Levofloxacin 500 mg/D5W 100 ml Premix Bag ONE; +Midazolam HCl 2 mg/2 ml Vial ONE; +Ondansetron PF 4 MG/2 ML Vial ONE
--- NOTE | 2018-10-25 13:04 | OP ---
DATE OF PROCEDURE: 10/25/2018 SERVICE: Urology. PREOPERATIVE DIAGNOSIS: Bilateral renal stones. POSTOPERATIVE DIAGNOSES: Left ureteral and bilateral renal stones. PROCEDURES PERFORMED: Left ureteroscopy, laser lithotripsy, basket extraction of stone, and placement of a 6 x 26 double-J stent. INDICATION FOR PROCEDURE: Mr. Steiner is a 42-year-old white male, who initially presented to me with a longstanding history of stones. He has not followed up in some time and came back with a CT demonstrating bilateral stones. He has larger stones on the left, and we had elected to do an elective ureteroscopy to remove the stones, so he did not have to pass them. Risks and benefits were discussed, and he has agreed to proceed forward. Of note, the patient stated that approximately 2 days ago before his surgery, he started having severe left flank pain. I have told him we will investigate this during the surgery. DESCRIPTION OF PROCEDURE: After identification of armband and verification of consent, the patient was brought back to the operating room, where he underwent general anesthesia with LMA. He was then placed in dorsal lithotomy position, and prepped and draped in usual sterile fashion. After appropriate time-out, a lubricated 22-[place] rigid cystoscope was introduced per urethra into the bladder. Attention was turned toward the left ureteral orifice, which was cannulated with a 0.035 Sensor wire up to the level of the kidney. A dual-lumen catheter was then advanced over the Sensor wire into the distal ureter, where retrograde pyelogram was performed, which demonstrated a filling defect and narrowing at the proximal ureter with hydronephrosis indicating that he is indeed passing a ureteral stone. A superstiff wire was then passed through the second lumen up to the level of renal pelvis. The dual lumen was then removed. Attempts to pass an 01/23 x 46 cm ureteral access sheath were met with significant resistance in the distal ureter, indicating that we could not get above this. I elected to put in a shorter 26 cm ureteral access sheath with the same size and stop at the level of the narrowing rather than dilate the ureter. We just then went up with a flexible disposable digital ureteroscope through the ureteral access sheath into the distal ureter and then cannulated the remainder of the way up with the ureteroscope until the proximal ureter, where the stone was encountered. A 273 micron laser fiber was used to fragment the stone, and then a 1.9-[place]icar[place]uan ZeroTip Nitinol was used to basket out the stone. In the kidney, the full pyeloscopy was performed, which did demonstrate an additional larger stone in the mid calyx. This was lasered down into dust fragments and some of the larger pieces extracted with a 1.9-[place] ZeroTip Nitinol basket. One additional 2 mm to 3 mm stone was found in the upper pole, which was fragmented into one and sub 1 mm pieces. There was innumerable amount of Bao's plaques and calcifications on the renal papilla indicating the patient is at extremely high risk for continuing to produce stones. The patient had previously been on potassium citrate, but had stopped this medication, which I will likely resume. The ureteroscope was then withdrawn back into the ureter as there were no additional stone fragments remaining within the kidney. One additional fragment was found in the ureter, which was basketed out and then no additional stones present. The sheath and ureteroscope were then removed. The cystoscope was backloaded over the Sensor wire back into the bladder, and a 6 x 26 double-J stent was advanced over the Sensor wire up to the level of renal pelvis. The wire was removed leaving a good curl in the kidney and a good curl in the bladder. The bladder was then emptied, and the cystoscope was removed. The patient was then awakened, taken to PACU for recovery in stable condition. COMPLICATIONS: None. ESTIMATED BLOOD LOSS: Minimal. RETAINED TUBES AND DRAINS: 6 x 26 double-J stent on the left. SPECIMEN: Stone for stone analysis. DISPOSITION: The patient will be discharged home and follow up with me in 1 week for cysto stent removal. Job ID: [id number]
[2018-10-31 08:12] LABS: CA Oxalate Monohydrate 80 % (.); CA Phosphate 15 % (.); Color Tan (.); Stone Weight 7.7 mg (.)
== END ==
LOC: SDC 07:38
PROVIDERS: ATTEND Urology
PROC: 0TF78ZZ Fragmentation in Left Ureter, Via Natural or Artificial Opening Endoscopic (ICD-10-PCS; principal; 2018-10-25)
PROC: 0T778DZ Dilation of Left Ureter with Intraluminal Device, Via Natural or Artificial Opening Endoscopic (ICD-10-PCS; principal; 2018-10-25)
DX: N13.2 Hydronephrosis with renal and ureteral calculous obstruction (principal); I10 Essential (primary) hypertension; F41.9 Anxiety disorder, unspecified; F32.9 Major depressive disorder, single episode, unspecified; Z88.0 Allergy status to penicillin; Z88.7 Allergy status to serum and vaccine
CPT/HCPCS: 74420; 82365; 88300; C1758; C1769; J1956; J2250; J2405; J3010

== ENCOUNTER 2018-10-28 14:09 | Emergency (ER) | payer BC ==
[2018-10-28 15:05] LABS: Bilirubin Negative (Negative); Blood, Urine Large (Negative); Glucose, Urine (Dipstick) Negative (Negative); Leukocyte Small (Negative); Nitrite Negative (Negative); Protein, Urine (Dipstick) 100 mg/dL (Neg-Trace)
[2018-10-28 15:10] LABS: #Eosinphils 0.5 thou/uL (0.0-0.7); #Lymphocytes 3.5 thou/uL (1.20-3.40); #Monocytes 1.3 thou/uL (0.11-0.59); #Neutrophils 4.8 thou/uL (1.40-6.50); %Basophils 0.1 % (0.0-1.0); %Eosinophils 4.5 % (0.0-10.0); %Lymphocytes 34.4 % (21.0-51.0); %Monocytes 12.8 % (0.0-10.0); %Neutrophils 48.1 % (42.0-75.0); Hemoglobin 14.8 g/dL (14.0-18.0); Mean Corpuscular HGB CONC 35.8 g/dL (32.0-36.0); Mean Corpuscular Hemoglobin 32.3 pg (27.0-31.0); Mean Corpuscular Volume 90.3 fL (78.0-98.0); Mean Platelet Volume 7.8 fL (7.4-10.4); Platelet Count 521 thou/uL (130-400); RBC Distribution Width 12.3 % (11.5-14.5); Red Blood Cell (RBC) Count 4.59 mill/uL (4.70-6.10)
[2018-10-28 15:15] LABS: Clarity Turbid (Clear)
[2018-10-28 15:16] LABS: Bacteria/HPF Rare-Few HPF (None Seen); RBC/HPF Greater than 50 HPF (0-3); Squamous Epithelial 0-3 HPF (0-3)
[2018-10-28 15:29] LABS: ALT (SGPT) 20 U/L (8-55); AST (SGOT) 19 U/L (5-34); Albumin 4.7 g/dL (3.5-5.0); Alkaline Phosphatase 98 U/L (40-150); Anion Gap 14 mmol/L (10-20); BUN (Urea Nitrogen) 19 mg/dL (8.9-20.6); Bilirubin, Total 1.4 mg/dL (0.2-1.2); Calc. Creatinine Clearance 0 mL/min (70-130); Calcium 10.1 mg/dL (7.8-10.44); Carbon Dioxide 26 mmol/L (22-29); Chloride 103 mmol/L (98-107); Estimated GFR-MDRD 65; Globulin 3.2 g/dL (2.4-3.5); Glucose 94 mg/dL (70-105); Lipase Less than 4 U/L (8-78); Protein, Total 7.9 g/dL (6.0-8.3); Sodium 140 mmol/L (136-145)
[2018-10-28] MEDS ORDERED: Ketorolac Tromethamine 30 MG/ML VIAL ONE (15:34)
[2018-10-28] MEDS ORDERED: Morphine 4 MG/ML VIAL ONE ×3 (15:34→19:35)
[2018-10-28] MEDS ORDERED: Ondansetron PF 4 MG/2 ML Vial ONE (15:40)
--- NOTE | 2018-10-28 17:49 | CT ---
CT STONE PROTOCOL: Date: 10/28/18 HISTORY: Left-sided flank pain, recent placement of a left ureteral stent on 10/25/18. COMPARISON: 10/01/18. FINDINGS: Absence of oral and IV contrast reduces the sensitivity of exam, particularly for evaluation of solid organs and bowel. The lung bases are clear. No free air or free fluid is seen in the abdomen or pelvis. The patient is post cholecystectomy and splenectomy. A normal appearing appendix is present. There is sigmoid divert iculosis without diverticulitis. Bilateral renal calculi are present. There has been interval placement of a left-sided ureteral stent . No calculi seen in the ureters or the urinary bladder. No right-sided hydroureteronephrosis identif ied. A tiny amount of free air is seen in the urinary bladder. A fat-containing inguinal hernia, left larger than right. No evidence of aneurysmal dilatation of the abdominal aorta. There are mild degenerative changes in the spine. IMPRESSION: 1. Interval placement of left ureteral stent since 10/01/18. 2. Nonobstructing bilateral renal calculi. POS: [facility]
[2018-10-28] MEDS ORDERED: Potassium Chloride 20 MEQ TAB ONE (19:35)
== END 2018-10-28 19:58 | disposition home or self-care (01) ==
LOC: ERS 14:09
DX: R10.32 Left lower quadrant pain (principal); R10.12 Left upper quadrant pain; R31.9 Hematuria, unspecified; E86.0 Dehydration; Z79.899 Other long term (current) drug therapy
CPT/HCPCS: 36415; 74176; 80053; 81003; 81015; 83605; 83690; 85025; 87040; 96361; 96374; 96375; 96376; J1885; J2270; J2405

== ENCOUNTER 2018-10-30 16:13 | Emergency (ER) | payer BC ==
[2018-10-30] MEDS ORDERED: Fentanyl 100 MCG/2 ML VIAL ONE (16:48)
[2018-10-30] MEDS ORDERED: Ondansetron PF 4 MG/2 ML Vial ONE (16:48)
[2018-10-30] MEDS ORDERED: Ketorolac Tromethamine 30 MG/ML VIAL ONE (16:48)
[2018-10-30 17:02] LABS: #Eosinphils 0.7 thou/uL (0.0-0.7); #Lymphocytes 3.6 thou/uL (1.20-3.40); #Monocytes 1.4 thou/uL (0.11-0.59); #Neutrophils 6.6 thou/uL (1.40-6.50); %Basophils 0.1 % (0.0-1.0); %Eosinophils 5.3 % (0.0-10.0); %Lymphocytes 29.5 % (21.0-51.0); %Monocytes 11.5 % (0.0-10.0); %Neutrophils 53.6 % (42.0-75.0); Hemoglobin 15.4 g/dL (14.0-18.0); Mean Corpuscular HGB CONC 38.3 g/dL (32.0-36.0); Mean Corpuscular Hemoglobin 34.6 pg (27.0-31.0); Mean Corpuscular Volume 90.1 fL (78.0-98.0); Mean Platelet Volume 8.2 fL (7.4-10.4); Platelet Count 524 thou/uL (130-400); RBC Distribution Width 12.2 % (11.5-14.5); Red Blood Cell (RBC) Count 4.46 mill/uL (4.70-6.10); White Blood Cell (WBC) Count 12.3 thou/uL (4.8-10.8)
--- NOTE | 2018-10-30 17:05 | RAD ---
Exam: KUB HISTORY: Abdominal pain since Monday with history of ureteral stent COMPARISON: CT the abdomen and pelvis dated October 28, 2018 FINDINGS: There is stable bilateral nephrolithiasis. Left ureteral stent projects in the expected pos ition. Numerous phleboliths are seen within the lower pelvis. Bowel gas pattern is unobstructed. Surgical clips are present within the upper abdomen. No acute osseous abnormality is noted. IMPRESSION: Stable bilateral nephrolithiasis and left ureteral stent.
[2018-10-30 17:24] LABS: ALT (SGPT) 20 U/L (8-55); AST (SGOT) 19 U/L (5-34); Alkaline Phosphatase 106 U/L (40-150); Anion Gap 16 mmol/L (10-20); BUN (Urea Nitrogen) 18 mg/dL (8.9-20.6); Bilirubin, Total 1.2 mg/dL (0.2-1.2); Calc. Creatinine Clearance 0 mL/min (70-130); Calcium 10.4 mg/dL (7.8-10.44); Carbon Dioxide 23 mmol/L (22-29); Chloride 106 mmol/L (98-107); Estimated GFR-MDRD 52; Globulin 3.4 g/dL (2.4-3.5); Glucose 95 mg/dL (70-105); Lipase 5 U/L (8-78); Protein, Total 8.4 g/dL (6.0-8.3); Sodium 142 mmol/L (136-145)
[2018-10-30 17:50] LABS: Bilirubin Negative (Negative); Blood, Urine 3+ (Negative); Clarity Turbid (Clear); Glucose, Urine (Dipstick) Normal (Negative); Leukocyte 500 Leu/uL (Negative); Nitrite Negative (Negative); Protein, Urine (Dipstick) 100 mg/dL (Neg-Trace); RBC/HPF Greater than 50 HPF (0-3); Squamous Epithelial 0-3 HPF (0-3); Urobilinogen Normal mg/dL (Less than 2); WBC/HPF Greater than 50 HPF (0-3)
[2018-10-30 17:51] LABS: Bacteria/HPF 1+ HPF (None Seen)
--- NOTE | 2018-11-03 13:40 | EKG ---
Test Reason : Blood Pressure : / mmHG Vent. Rate : 103 BPM Atrial Rate : 103 BPM P-R Int : 140 ms QRS Dur : 090 ms QT Int : 344 ms P-R-T Axes : 016 028 018 degrees QTc Int : 450 ms Sinus tachycardia Otherwise normal ECG Confirmed by YOVANI JACKSON, TREY ([id number]), editor news JONNA AHUMADA ([id number]) on 11/03/2018 1:40:13 PM Referred By: Confirmed By:TREY PINA MD
== END 2018-10-30 18:32 | disposition home or self-care (01) ==
LOC: ERS 16:13
DX: L03.114 Cellulitis of left upper limb (principal); N28.9 Disorder of kidney and ureter, unspecified; R65.10 Systemic inflammatory response syndrome (SIRS) of non-infectious origin without acute organ dysfunction; N23 Unspecified renal colic; E87.6 Hypokalemia; R73.9 Hyperglycemia, unspecified; I10 Essential (primary) hypertension; F41.9 Anxiety disorder, unspecified
CPT/HCPCS: 36415; 74018; 80053; 81001; 81015; 83690; 85025; 87086; 93005; 96361; 96374; 96375; J1885; J2405; J3010

== ENCOUNTER 2018-11-09 19:17 | Emergency (ER) | payer BC ==
[~2018-11-09 19:17] MED LIST changes: -Fentanyl 100 MCG/2 ML VIAL ONE; -HYDROcodone/Acetaminophen 5/325 mg Tablet ONE; +ISOVUE-370 76%-LOCM 1 ML ONE; -Iothalamate Meglumine 60% 50 ML VIAL FS ONE; -Labetalol HCl 100 MG/20 ML VIAL ONE; -Levofloxacin 500 mg/D5W 100 ml Premix Bag ONE; -Midazolam HCl 2 mg/2 ml Vial ONE; -Ondansetron PF 4 MG/2 ML Vial ONE
[2018-11-09] MEDS ORDERED: Ondansetron PF 4 MG/2 ML Vial ONE (20:06)
[2018-11-09] MEDS ORDERED: Morphine 4 MG/ML VIAL ONE ×2 (20:06→23:20)
[2018-11-09 20:31] LABS: #Eosinphils 0.4 thou/uL (0.0-0.7); #Lymphocytes 2.1 thou/uL (1.20-3.40); #Monocytes 1.5 thou/uL (0.11-0.59); #Neutrophils 10.6 thou/uL (1.40-6.50); %Eosinophils 2.7 % (0.0-10.0); %Lymphocytes 14.4 % (21.0-51.0); %Neutrophils 72.8 % (42.0-75.0); Hemoglobin 14.2 g/dL (14.0-18.0); Mean Corpuscular HGB CONC 36.1 g/dL (32.0-36.0); Mean Corpuscular Hemoglobin 32.7 pg (27.0-31.0); Mean Corpuscular Volume 90.5 fL (78.0-98.0); Mean Platelet Volume 7.9 fL (7.4-10.4); Platelet Count 528 thou/uL (130-400); RBC Distribution Width 12.7 % (11.5-14.5); Red Blood Cell (RBC) Count 4.34 mill/uL (4.70-6.10); White Blood Cell (WBC) Count 14.5 thou/uL (4.8-10.8)
[2018-11-09 20:34] LABS: ALT (SGPT) 20 U/L (8-55); AST (SGOT) 14 U/L (5-34); Albumin 4.5 g/dL (3.5-5.0); Alkaline Phosphatase 94 U/L (40-150); Anion Gap 13 mmol/L (10-20); BUN (Urea Nitrogen) 15 mg/dL (8.9-20.6); Bilirubin, Total 1.8 mg/dL (0.2-1.2); Calc. Creatinine Clearance 0 mL/min (70-130); Calcium 9.1 mg/dL (7.8-10.44); Carbon Dioxide 22 mmol/L (22-29); Chloride 107 mmol/L (98-107); Estimated GFR-MDRD 57; Glucose 97 mg/dL (70-105); Lipase 12 U/L (8-78); Protein, Total 7.5 g/dL (6.0-8.3); Sodium 139 mmol/L (136-145)
[2018-11-09 20:41] LABS: Potassium 2.9 mmol/L (3.5-5.1)
[2018-11-09] MEDS ORDERED: Potassium Chloride 20 MEQ/100 ML PREMIX BAG ONE (21:05)
[2018-11-09] MEDS ORDERED: Potassium Chloride 20 MEQ TAB ONE (21:07)
[2018-11-09 21:34] LABS: Bilirubin Negative (Negative); Blood, Urine Negative (Negative); Clarity Clear (Clear); Glucose, Urine (Dipstick) Normal (Negative); Leukocyte Negative Leu/uL (Negative); Nitrite Negative (Negative); Protein, Urine (Dipstick) Negative (Neg-Trace); Urobilinogen Normal mg/dL (Less than 2)
--- NOTE | 2018-11-09 21:46 | CT ---
CT ABDOMEN AND PELVIS WITH IV CONTRAST: 11/09/18 HISTORY: Abdominal pain. FINDINGS: There has been interval removal of the left sided ureteral stent since CT stone protocol of 10/28/18. The right lung base is clear. The partially calcified nodule in the left lung base is unchanged since 2015 and likely a granuloma. A small hiatal hernia is present. The patient is post cholecystectomy a nd splenectomy. The liver, pancreas, and adrenal glands are normal. Bilateral renal calculi are again noted. There is a 2 mm calculus in the left ureter at the pelvic in let without significant hydroureteronephrosis. No right ureteric or bladder calculus is seen. No free air, free fluid, or lymphadenopathy is noted in the abdomen or pelvis. The abdominal aorta killian s normal caliber. There are degenerative changes in the lumbar spine most prominent at L5-S1 level. F at containing inguinal hernia, left larger than right again seen. A normal appearing appendix is pre sent. The prostate is mildly enlarged. IMPRESSION: 1. A 2 mm calculus in the left ureter at the pelvic inlet. 2. Nonobstructing bilateral renal calculi. 3. Small hiatal hernia. POS: [facility]
[2018-11-09] MEDS ORDERED: Ketorolac Tromethamine 30 MG/ML VIAL ONE (21:54)
[2018-11-09 22:43] LABS: Potassium 3.2 mmol/L (3.5-5.1)
== END 2018-11-09 23:33 | disposition home or self-care (01) ==
LOC: ERS 19:17
DX: N20.1 Calculus of ureter (principal); E87.6 Hypokalemia; I10 Essential (primary) hypertension; F41.9 Anxiety disorder, unspecified; Z79.899 Other long term (current) drug therapy
CPT/HCPCS: 36415; 74177; 80053; 81003; 83690; 84484; 85025; 93005; 96361; 96374; 96375; 96376; J1885; J2270; J2405; J3480; Q9966

== ENCOUNTER 2018-11-18 12:15 | Emergency (ER) | payer BC ==
[2018-11-18] MEDS ORDERED: Fentanyl 100 MCG/2 ML VIAL ONE (12:30)
[2018-11-18] MEDS ORDERED: Ondansetron PF 4 MG/2 ML Vial ONE (12:33)
[2018-11-18 13:19] LABS: #Eosinphils 0.5 thou/uL (0.0-0.7); #Lymphocytes 3.3 thou/uL (1.20-3.40); #Monocytes 1.3 thou/uL (0.11-0.59); #Neutrophils 5.1 thou/uL (1.40-6.50); %Basophils 0.3 % (0.0-1.0); %Eosinophils 5.1 % (0.0-10.0); %Lymphocytes 32.1 % (21.0-51.0); %Monocytes 12.6 % (0.0-10.0); %Neutrophils 49.9 % (42.0-75.0); Hemoglobin 15.1 g/dL (14.0-18.0); Mean Corpuscular HGB CONC 37.2 g/dL (32.0-36.0); Mean Corpuscular Hemoglobin 33.7 pg (27.0-31.0); Mean Corpuscular Volume 90.6 fL (78.0-98.0); Mean Platelet Volume 7.9 fL (7.4-10.4); Platelet Count 597 thou/uL (130-400); RBC Distribution Width 12.8 % (11.5-14.5); Red Blood Cell (RBC) Count 4.49 mill/uL (4.70-6.10); White Blood Cell (WBC) Count 10.2 thou/uL (4.8-10.8)
[2018-11-18 13:26] LABS: ALT (SGPT) 30 U/L (8-55); AST (SGOT) 28 U/L (5-34); Albumin 4.6 g/dL (3.5-5.0); Alkaline Phosphatase 94 U/L (40-150); Anion Gap 14 mmol/L (10-20); BUN (Urea Nitrogen) 16 mg/dL (8.9-20.6); Calc. Creatinine Clearance 0 mL/min (70-130); Calcium 9.8 mg/dL (7.8-10.44); Carbon Dioxide 27 mmol/L (22-29); Chloride 103 mmol/L (98-107); Estimated GFR-MDRD 61; Globulin 3.3 g/dL (2.4-3.5); Glucose 100 mg/dL (70-105); Lipase Less than 4 U/L (8-78); Protein, Total 7.9 g/dL (6.0-8.3); Sodium 141 mmol/L (136-145)
[2018-11-18 13:30] LABS: Potassium 2.8 mmol/L (3.5-5.1)
[2018-11-18 13:37] LABS: Bilirubin Negative (Negative); Blood, Urine Trace (Negative); Calcium Oxalate Crystals 4+ HPF (None Seen); Clarity Clear (Clear); Glucose, Urine (Dipstick) Normal (Negative); Leukocyte Negative Leu/uL (Negative); Nitrite Negative (Negative); Protein, Urine (Dipstick) 20 mg/dL (Neg-Trace); RBC/HPF 0-3 HPF (0-3); Squamous Epithelial None Seen HPF (0-3); Urobilinogen Normal mg/dL (Less than 2)
[2018-11-18] MEDS ORDERED: Potassium Chloride 20 MEQ/100 ML PREMIX BAG ONE (13:43)
[2018-11-18 13:44] LABS: Bacteria/HPF None Seen HPF (None Seen); Mucous/LPF 1+ LPF (<2+)
[2018-11-18] MEDS ORDERED: Potassium Chloride 20 MEQ in Premix Bag 1 BAG IVPB SCH (13:45)
[2018-11-18] MEDS ORDERED: Morphine 4 MG/ML VIAL ONE ×2 (14:16→16:35)
--- NOTE | 2018-11-18 14:26 | CT ---
EXAM: CT Abdomen Pelvis W Con PROVIDED CLINICAL HISTORY: Kidney stones COMPARISON: 11/09/2018 FINDINGS: The visualized lung bases are free of significant opacity. Bilateral nephrolithiasis is redemonstrated. Stable tiny calcification adjacent to/within the left ur eter at the level of the pelvic inlet without evidence for hydronephrosis or hydroureter. The liver, pancreas and adrenal glands appear unremarkable. The spleen is surgically absent. There is no bowel dilatation, inflammatory fat stranding, free fluid or lymph node enlargement appare nt. The appendix appears normal. The osseous structures demonstrate no concerning lytic or blastic lesions. IMPRESSION: Stable tiny calcification adjacent to or within the distal left ureter without evidence for obstructi on. Stable bilateral nephrolithiasis. Please note that this is the patient's 5th CT scan in the past 2 months.
[2018-11-18] MEDS ORDERED: Ketorolac Tromethamine 30 MG/ML VIAL ONE (17:38)
== END 2018-11-18 18:29 | disposition home or self-care (01) ==
LOC: ERS 12:15
DX: N13.2 Hydronephrosis with renal and ureteral calculous obstruction (principal); I10 Essential (primary) hypertension; F41.9 Anxiety disorder, unspecified; Z79.899 Other long term (current) drug therapy
CPT/HCPCS: 36415; 74177; 80053; 81003; 81015; 83605; 83690; 85025; 87086; 96361; 96365; 96366; 96375; 96376; J1885; J1956; J2270; J2405; J3010; J3480; Q9966

== ENCOUNTER 2018-11-24 11:56 | Emergency (ER) | payer BC ==
[2018-11-24 13:09] LABS: #Basophils 0.1 thou/uL (0.0-0.2); #Eosinphils 0.6 thou/uL (0.0-0.7); #Lymphocytes 1.4 thou/uL (1.20-3.40); #Monocytes 1.5 thou/uL (0.11-0.59); #Neutrophils 14.8 thou/uL (1.40-6.50); %Basophils 0.3 % (0.0-1.0); %Eosinophils 3.5 % (0.0-10.0); %Lymphocytes 7.5 % (21.0-51.0); %Neutrophils 80.7 % (42.0-75.0); Hemoglobin 14.6 g/dL (14.0-18.0); Mean Corpuscular HGB CONC 37.8 g/dL (32.0-36.0); Mean Corpuscular Hemoglobin 34.7 pg (27.0-31.0); Mean Corpuscular Volume 91.7 fL (78.0-98.0); Mean Platelet Volume 7.7 fL (7.4-10.4); Platelet Count 505 thou/uL (130-400); RBC Distribution Width 12.8 % (11.5-14.5); White Blood Cell (WBC) Count 18.4 thou/uL (4.8-10.8)
[2018-11-24 13:21] LABS: ALT (SGPT) 22 U/L (8-55); AST (SGOT) 19 U/L (5-34); Albumin 4.5 g/dL (3.5-5.0); Alkaline Phosphatase 97 U/L (40-150); Anion Gap 11 mmol/L (10-20); BUN (Urea Nitrogen) 11 mg/dL (8.9-20.6); Bilirubin, Total 1.6 mg/dL (0.2-1.2); Calc. Creatinine Clearance 0 mL/min (70-130); Calcium 9.8 mg/dL (7.8-10.44); Carbon Dioxide 30 mmol/L (22-29); Chloride 101 mmol/L (98-107); Estimated GFR-MDRD 60; Globulin 2.9 g/dL (2.4-3.5); Glucose 122 mg/dL (70-105); Potassium 3.2 mmol/L (3.5-5.1); Protein, Total 7.4 g/dL (6.0-8.3); Sodium 139 mmol/L (136-145)
[2018-11-24] MEDS ORDERED: Morphine 4 MG/ML VIAL ONE (13:44)
[2018-11-24] MEDS ORDERED: Ondansetron PF 4 MG/2 ML Vial ONE (13:44)
[2018-11-24 13:50] LABS: Bacteria/HPF None Seen HPF (None Seen); Bilirubin Negative (Negative); Blood, Urine 1+ (Negative); Clarity Clear (Clear); Glucose, Urine (Dipstick) Normal (Negative); Leukocyte Negative Leu/uL (Negative); Nitrite Negative (Negative); Protein, Urine (Dipstick) 10 mg/dL (Neg-Trace); Squamous Epithelial 0-3 HPF (0-3); Urobilinogen Normal mg/dL (Less than 2)
[2018-11-24] MEDS ORDERED: Ketorolac Tromethamine 30 MG/ML VIAL ONE (15:06)
== END 2018-11-24 15:20 | disposition home or self-care (01) ==
LOC: ERS 11:56
DX: N20.0 Calculus of kidney (principal); F41.9 Anxiety disorder, unspecified; D58.0 Hereditary spherocytosis; I10 Essential (primary) hypertension; Z79.899 Other long term (current) drug therapy
CPT/HCPCS: 36415; 80053; 81003; 81015; 83605; 85025; 87086; 96361; 96374; 96375; J1885; J2270; J2405

== ENCOUNTER 2018-11-26 17:08 | Emergency (ER) | payer BC ==
[2018-11-26 17:54] LABS: Bacteria/HPF 1+ HPF (None Seen); Bilirubin Negative (Negative); Blood, Urine 2+ (Negative); Clarity Clear (Clear); Glucose, Urine (Dipstick) Normal (Negative); Leukocyte 25 Leu/uL (Negative); Nitrite Negative (Negative); Protein, Urine (Dipstick) 50 mg/dL (Neg-Trace); RBC/HPF Greater than 50 HPF (0-3); Squamous Epithelial None Seen HPF (0-3); Urobilinogen 3 mg/dL (Less than 2)
[2018-11-26 18:13] LABS: Hemoglobin 14.6 g/dL (14.0-18.0); Mean Corpuscular Volume 91.9 fL (78.0-98.0); Mean Platelet Volume 7.7 fL (7.4-10.4); Platelet Count 510 thou/uL (130-400); RBC Distribution Width 12.7 % (11.5-14.5); Red Blood Cell (RBC) Count 4.28 mill/uL (4.70-6.10); White Blood Cell (WBC) Count 7.7 thou/uL (4.8-10.8)
[2018-11-26 18:32] LABS: Band 1 % (5-11); Lymphocytes 8 % (21-51); MDiff Complete? YES; Monocytes 20 % (0-10); Neutrophil 71 % (42-75); Platelet Morphology Comment Appears Increased
[2018-11-26 18:34] LABS: ALT (SGPT) 40 U/L (8-55); AST (SGOT) 31 U/L (5-34); Albumin 4.4 g/dL (3.5-5.0); Alkaline Phosphatase 95 U/L (40-150); Anion Gap 11 mmol/L (10-20); BUN (Urea Nitrogen) 18 mg/dL (8.9-20.6); Bilirubin, Total 0.8 mg/dL (0.2-1.2); Calc. Creatinine Clearance 0 mL/min (70-130); Calcium 9.6 mg/dL (7.8-10.44); Carbon Dioxide 31 mmol/L (22-29); Chloride 103 mmol/L (98-107); Estimated GFR-MDRD 57; Glucose 126 mg/dL (70-105); Lipase Less than 4 U/L (8-78); Potassium 3.2 mmol/L (3.5-5.1); Protein, Total 7.4 g/dL (6.0-8.3); Sodium 142 mmol/L (136-145)
[2018-11-26] MEDS ORDERED: Ketorolac Tromethamine 30 MG/ML VIAL ONE (19:09)
[2018-11-26] MEDS ORDERED: Lorazepam 2 MG/ML VIAL ONE (19:09)
[2018-11-26] MEDS ORDERED: Fentanyl 100 MCG/2 ML VIAL ONE (19:09)
[2018-11-26] MEDS ORDERED: Ondansetron ODT 8 MG TAB ONE (19:09)
[2018-11-26] MEDS ORDERED: Ondansetron PF 4 MG/2 ML Vial ONE (19:10)
--- NOTE | 2018-11-26 19:30 | RAD ---
EXAM: Single view of the abdomen HISTORY: Left flank pain COMPARISON: 10/30/2018 FINDINGS: Single view of the abdomen shows a nonspecific, nonobstructive bowel gas pattern. Small sta ble calcifications project over both kidneys.The previously seen left ureteral stent has been removed. Surgical clips are seen in the upper abdomen. The bones are unremarkable. IMPRESSION: Bilateral nephrolithiasis
[2018-11-26] MEDS ORDERED: Morphine 4 MG/ML VIAL ONE (21:33)
== END 2018-11-26 21:42 | disposition home or self-care (01) ==
LOC: ERS 17:08
DX: N20.2 Calculus of kidney with calculus of ureter (principal); R11.0 Nausea; I10 Essential (primary) hypertension; Z79.899 Other long term (current) drug therapy
CPT/HCPCS: 36415; 74018; 80053; 81003; 81015; 83690; 85025; 96361; 96374; 96375; J1885; J2060; J2270; J2405; J3010

== ENCOUNTER 2018-11-29 10:54 | Day surgery (SDC) | payer BC ==
[2018-11-28 15:58] VITALS: BMI 34.0
[2018-11-29] MEDS ORDERED: Levofloxacin 500 mg/D5W 100 ml Premix Bag ONE (11:39)
[2018-11-29] MEDS ORDERED: Fentanyl 100 MCG/2 ML VIAL ONE ×4 (12:07→15:53)
[2018-11-29] MEDS ORDERED: Iothalamate Meglumine 60% 50 ML VIAL FS ONE (15:18)
--- NOTE | 2018-11-29 15:51 | RAD ---
RETROGRADE PYELOGRAM 2 VIEWS: HISTORY: Stent placement. FINDINGS: Two films were presented for interpretation. On one film, a stent is in place. Contrast injected in to a nondilated collecting system. The second film which is slightly later shows the catheter to hav e been removed. There is still some residual contrast within the collecting system. IMPRESSION: Nondilated left collecting system. POS: [facility]
[2018-11-29] MEDS ORDERED: Promethazine HCl 25 MG/ML VIAL ONE (16:31)
[2018-11-29] MEDS ORDERED: Labetalol HCl 100 MG/20 ML VIAL ONE (16:35)
[2018-11-29] MEDS ORDERED: HYDROcodone/Acetaminophen 5/325 mg Tablet ONE (17:04)
--- NOTE | 2018-11-29 23:01 | OP ---
DATE OF PROCEDURE: 11/29/2018 SERVICE: Urology. PREOPERATIVE DIAGNOSIS: Possible left ureteral stone. POSTOPERATIVE DIAGNOSIS: Left flank pain. PROCEDURE PERFORMED: Cystoscopy with diagnostic left ureteroscopy and left retrograde pyelogram. INDICATION FOR PROCEDURE: Mr. Steiner is a 43-year-old white male with a long history of ongoing left flank pain with history of excessive nephrolithiasis. He has had multiple and innumerable CT scans secondary to this chronic left flank pain. On a recent CT scan, it showed a stable left distal ureteral calculus, which apparently has been present on prior examinations. However, there was no hydronephrosis noted. The patient states that he feels like he is passing a stone and is having severe left flank pain. He requested treatment as he states the pain is unbearable. We have elected to perform a diagnostic ureteroscopy as the CT was not entirely conclusive of the presence or absence of the stone either outside or inside the ureter. We have discussed the risks and benefits of procedure and he has agreed to proceed forward. DESCRIPTION OF PROCEDURE: After identification of armband and verification of consent, the patient was brought back to the operating room. He underwent general anesthesia with an LMA. He was placed in dorsal lithotomy position, and prepped and draped in usual sterile fashion. After appropriate time-out, a lubricated 22-Zambian rigid cystoscope was introduced per urethra into the bladder. Attention was turned to left ureteral orifice which was cannulated with a 0.035 Sensor wire up to the level of the kidney. The cystoscope was then removed and a semi-rigid ureteroscope was passed alongside of the Sensor wire into the distal ureter. Ureteroscopy was performed up to the mid proximal ureter at which point no stone was seen. The stone was noted to be at the pelvic inlet closer to the distal ureter. This area was thoroughly inspected and again found to have no actual stone within the lumen. As such, there does not appear to be any urologic source of the patient's pain and the stone that was seen on CT is actually not inside of his ureter. The ureteroscope was removed and a Pollack catheter was advanced over the Sensor wire into the distal ureter. The wire was removed and a retrograde pyelogram performed, which demonstrated a slender normal-caliber ureter and normal kidney with sharp calyces. There was some pyelolymphatic backflow at the lower aspect of the kidney. There was no apparent obstruction. The Pollack catheter was removed and there was immediate and prompt drainage of all contrast within the ureter out without any residual contrast remaining within the ureter. Some contrast was pulled within the kidney, which is expected secondary to layering and probably would be expelled over the course of the next hour or so. As such, I do not feel if there is any evidence of obstruction. There does not appear to be any stone within the ureter. I am not entirely sure where the patient's flank pain is coming from or if it is related to his spherocytosis or some other type of neurological, musculoskeletal, or vascular type pain. As such, since there was minimal trauma to the ureter, no dilation and no lasering, I do not feel a need to leave the stent in. Everything was withdrawn and the bladder was emptied. The patient was then taken out of positioning, awakened, and taken to PACU for recovery in stable condition. COMPLICATIONS: None. ESTIMATED BLOOD LOSS: Minimal. RETAINED TUBES AND DRAINS: None. SPECIMENS: None. DISPOSITION: The patient will be discharged home and follow up with me in approximately 2 weeks at which time, we will discuss stone prevention. The patient does have high risk for stones and it is difficult in this individual to know when he is passing a stone versus when he is having his flank pain as there is no clear indication of which of them are occurring at this current time. Job ID: [id number]
== END 2018-11-29 18:30 | disposition home or self-care (01) ==
LOC: SDC 10:54
PROVIDERS: ATTEND Urology
PROC: BT1F1ZZ Fluoroscopy of Left Kidney, Ureter and Bladder using Low Osmolar Contrast (ICD-10-PCS; principal; 2018-11-29)
DX: N20.1 Calculus of ureter (principal); I10 Essential (primary) hypertension; F41.9 Anxiety disorder, unspecified; F32.9 Major depressive disorder, single episode, unspecified; Z79.899 Other long term (current) drug therapy; Z88.0 Allergy status to penicillin; Z88.7 Allergy status to serum and vaccine
CPT/HCPCS: 74420; C1758; C1769; J1956; J2550; J3010

== ENCOUNTER 2018-12-07 16:23 | Emergency (ER) | payer BC ==
[2018-12-07] MEDS ORDERED: Morphine 4 MG/ML VIAL ONE ×2 (17:19→18:31)
[2018-12-07] MEDS ORDERED: Ondansetron ODT 4 MG TAB ONE (17:19)
[2018-12-07 17:47] LABS: Bacteria/HPF None Seen HPF (None Seen); Bilirubin Negative (Negative); Blood, Urine 1+ (Negative); Clarity Clear (Clear); Glucose, Urine (Dipstick) Normal (Negative); Leukocyte Negative Leu/uL (Negative); Nitrite Negative (Negative); Protein, Urine (Dipstick) 10 mg/dL (Neg-Trace); RBC/HPF 0-3 HPF (0-3); Squamous Epithelial None Seen HPF (0-3); Urobilinogen Normal mg/dL (Less than 2); WBC/HPF 0-3 HPF (0-3)
--- NOTE | 2018-12-07 17:51 | CT ---
CT OF ABDOMEN AND PELVIS PERFORMED WITHOUT CONTRAST ENHANCEMENT: 12/07/18 HISTORY: Left flank pain. History of kidney stones. COMPARISON: An 10/18/18 study as well as a 11/18/18 exam. The lung bases are clear. The liver is normal in appearance. The spleen has been removed. There appear to be some small splenic lobules present. The pancreas region is unremarkable and the gallbladder has been removed. Right and left adrenal glands are normal. Bilateral renal calculi are again demonstrated. These appea r fairly similar to the previous exam. There is no obstruction demonstrated. Once again, at the level of the pelvis brim, there is a punctate calcification which appears to be within the left ureter. No dilatation of the ureter associated with this. No significant periaortic or mesenteric adenopathy. T he appendix is normal. No pelvic lymphadenopathy or mass. IMPRESSION: 1. Numerous bilateral renal calculi. 2. Post splenectomy change. 3. Unchanged appearance to a distal left ureteral calculus located at the level of the pelvic br im, not associated with any obstruction. POS: [facility]
[2018-12-07 18:02] LABS: #Basophils 0.1 thou/uL (0.0-0.2); #Eosinphils 0.2 thou/uL (0.0-0.7); #Lymphocytes 3.8 thou/uL (1.20-3.40); #Monocytes 1.4 thou/uL (0.11-0.59); #Neutrophils 6.6 thou/uL (1.40-6.50); %Basophils 0.5 % (0.0-1.0); %Lymphocytes 31.9 % (21.0-51.0); %Monocytes 11.2 % (0.0-10.0); %Neutrophils 54.5 % (42.0-75.0); Hemoglobin 14.3 g/dL (14.0-18.0); Mean Corpuscular Hemoglobin 33.2 pg (27.0-31.0); Mean Corpuscular Volume 89.7 fL (78.0-98.0); Mean Platelet Volume 7.6 fL (7.4-10.4); Platelet Count 572 thou/uL (130-400); RBC Distribution Width 12.8 % (11.5-14.5); Red Blood Cell (RBC) Count 4.33 mill/uL (4.70-6.10); White Blood Cell (WBC) Count 12.1 thou/uL (4.8-10.8)
[2018-12-07 18:12] LABS: ALT (SGPT) 21 U/L (8-55); AST (SGOT) 15 U/L (5-34); Albumin 4.7 g/dL (3.5-5.0); Alkaline Phosphatase 98 U/L (40-110); Anion Gap 14 mmol/L (10-20); BUN (Urea Nitrogen) 20 mg/dL (8.9-20.6); Bilirubin, Total 1.1 mg/dL (0.2-1.2); Calc. Creatinine Clearance 0 mL/min (70-130); Calcium 9.8 mg/dL (7.8-10.44); Carbon Dioxide 24 mmol/L (22-29); Chloride 106 mmol/L (98-107); Estimated GFR-MDRD 59; Globulin 3.2 g/dL (2.4-3.5); Glucose 103 mg/dL (70-105); Protein, Total 7.9 g/dL (6.0-8.3); Sodium 141 mmol/L (136-145)
[2018-12-07 18:15] LABS: Potassium 2.6 mmol/L (3.5-5.1)
[2018-12-07] MEDS ORDERED: Potassium Chloride 20 MEQ TAB ONE ×2 (18:32→19:04)
== END 2018-12-07 20:24 | disposition home or self-care (01) ==
LOC: ERS 16:23
DX: R10.9 Unspecified abdominal pain (principal); R03.0 Elevated blood-pressure reading, without diagnosis of hypertension; R10.812 Left upper quadrant abdominal tenderness; R10.814 Left lower quadrant abdominal tenderness; I10 Essential (primary) hypertension; F41.9 Anxiety disorder, unspecified; Z79.891 Long term (current) use of opiate analgesic; Z79.899 Other long term (current) drug therapy
CPT/HCPCS: 74176; 80053; 81003; 81015; 85025; 96361; 96374; 96376; J2270; Q0162

== ENCOUNTER 2018-12-19 08:11 | Outpatient (CLI) | payer BC ==
--- NOTE | 2018-12-19 09:21 | ULT ---
BILATERAL RENAL ULTRASOUND: HISTORY: Kidney stones. FINDINGS: Comparison is made to the exam of 11/10/2015. The right kidney measures 11.4 cm in length and the left kidney measures 12.6 cm in length. No hydro nephrosis is seen on either side. There are calculi in the kidneys on both sides measuring up to 1.1 cm. Bilateral ureteral jets are seen. There is a suggestion of a tiny calculus in the urinary blad bebeto. Incidental note is made of fatty infiltration of the liver. IMPRESSION: 1. Nonobstructing bilateral renal calculi. 2. Probable calculus in the urinary bladder. 3. Fatty liver. POS: [facility]
== END 2018-12-19 08:12 | disposition home or self-care (01) ==
LOC: SCSULT 08:11
PROVIDERS: ATTEND Urology
DX: N20.0 Calculus of kidney (principal); K76.0 Fatty (change of) liver, not elsewhere classified
CPT/HCPCS: 76770

== ENCOUNTER 2018-12-20 16:08 | Emergency (ER) | payer BC ==
[2018-12-20 16:33] LABS: Bilirubin Negative (Negative); Blood, Urine 2+ (Negative); Clarity Clear (Clear); Glucose, Urine (Dipstick) Normal (Negative); Leukocyte Negative Leu/uL (Negative); Nitrite Negative (Negative); Protein, Urine (Dipstick) 10 mg/dL (Neg-Trace); Urobilinogen Normal mg/dL (Less than 2)
[2018-12-20 16:37] LABS: #Eosinphils 0.3 thou/uL (0.0-0.7); #Lymphocytes 3.3 thou/uL (1.20-3.40); #Monocytes 1.2 thou/uL (0.11-0.59); #Neutrophils 5.7 thou/uL (1.40-6.50); %Basophils 0.4 % (0.0-1.0); %Eosinophils 2.4 % (0.0-10.0); %Lymphocytes 31.4 % (21.0-51.0); %Monocytes 11.5 % (0.0-10.0); %Neutrophils 54.2 % (42.0-75.0); Hemoglobin 14.4 g/dL (14.0-18.0); Mean Corpuscular HGB CONC 37.3 g/dL (32.0-36.0); Mean Corpuscular Hemoglobin 33.5 pg (27.0-31.0); Mean Corpuscular Volume 89.8 fL (78.0-98.0); Mean Platelet Volume 7.6 fL (7.4-10.4); Platelet Count 531 thou/uL (130-400); RBC Distribution Width 12.8 % (11.5-14.5); Red Blood Cell (RBC) Count 4.31 mill/uL (4.70-6.10); White Blood Cell (WBC) Count 10.4 thou/uL (4.8-10.8)
[2018-12-20 16:45] LABS: Bacteria/HPF None Seen HPF (None Seen); Squamous Epithelial 0-3 HPF (0-3); WBC/HPF None Seen HPF (0-3)
[2018-12-20 16:53] LABS: ALT (SGPT) 22 U/L (8-55); AST (SGOT) 20 U/L (5-34); Albumin 4.6 g/dL (3.5-5.0); Alkaline Phosphatase 96 U/L (40-110); Anion Gap 14 mmol/L (10-20); BUN (Urea Nitrogen) 17 mg/dL (8.9-20.6); Bilirubin, Total 0.6 mg/dL (0.2-1.2); Calc. Creatinine Clearance 0 mL/min (70-130); Calcium 9.6 mg/dL (7.8-10.44); Carbon Dioxide 28 mmol/L (22-29); Chloride 105 mmol/L (98-107); Estimated GFR-MDRD 55; Globulin 3.3 g/dL (2.4-3.5); Glucose 128 mg/dL (70-105); Protein, Total 7.9 g/dL (6.0-8.3); Sodium 144 mmol/L (136-145)
[2018-12-20 16:55] LABS: Potassium 2.8 mmol/L (3.5-5.1)
[2018-12-20] MEDS ORDERED: Ketorolac Tromethamine 30 MG/ML VIAL ONE (17:26)
[2018-12-20] MEDS ORDERED: Fentanyl 100 MCG/2 ML VIAL ONE (17:26)
[2018-12-20] MEDS ORDERED: Ondansetron PF 4 MG/2 ML Vial ONE (17:26)
--- NOTE | 2018-12-20 17:29 | RAD ---
XR Abdomen 1 View/KUB History: Abdominal pain. Comparison: CT examination December 07, 2018 Findings: Innumerable calcifications project over both renal collecting systems. Phleboliths in the p angelica. No dilated loops of large or small bowel. No abnormal calcifications project over the expected locati on of the ureters. Impression: Innumerable renal calculi without definite ureteral calculus appreciated.
[2018-12-20] MEDS ORDERED: Potassium Chloride 20 MEQ TAB ONE (17:49)
== END 2018-12-20 18:48 | disposition home or self-care (01) ==
LOC: ERS 16:08
DX: N20.1 Calculus of ureter (principal); I10 Essential (primary) hypertension; F41.9 Anxiety disorder, unspecified; Z79.899 Other long term (current) drug therapy
CPT/HCPCS: 36415; 74018; 80053; 81003; 81015; 85025; 93005; 96361; 96374; 96375; J1885; J2405; J3010

== ENCOUNTER 2019-01-03 16:57 | Inpatient (IN) | payer BC ==
[2019-01-03 17:25] LABS: #Eosinphils 0.2 thou/uL (0.0-0.7); #Lymphocytes 3.4 thou/uL (1.20-3.40); #Monocytes 1.3 thou/uL (0.11-0.59); #Neutrophils 7.3 thou/uL (1.40-6.50); %Basophils 0.2 % (0.0-1.0); %Eosinophils 1.4 % (0.0-10.0); %Lymphocytes 27.8 % (21.0-51.0); %Monocytes 10.6 % (0.0-10.0); %Neutrophils 59.9 % (42.0-75.0); Hemoglobin 15.3 g/dL (14.0-18.0); Mean Corpuscular HGB CONC 36.2 g/dL (32.0-36.0); Mean Corpuscular Hemoglobin 33.2 pg (27.0-31.0); Mean Corpuscular Volume 91.7 fL (78.0-98.0); Mean Platelet Volume 7.7 fL (7.4-10.4); Platelet Count 548 thou/uL (130-400); RBC Distribution Width 12.7 % (11.5-14.5); Red Blood Cell (RBC) Count 4.62 mill/uL (4.70-6.10); White Blood Cell (WBC) Count 12.2 thou/uL (4.8-10.8)
[2019-01-03] MEDS ORDERED: Ketorolac Tromethamine 30 MG/ML VIAL ONE (17:36)
[2019-01-03] MEDS ORDERED: Ondansetron PF 4 MG/2 ML Vial ONE ×2 (17:36→20:24)
[2019-01-03] MEDS ORDERED: Fentanyl 100 MCG/2 ML VIAL ONE (17:36)
[2019-01-03 17:55] LABS: ALT (SGPT) 21 U/L (8-55); AST (SGOT) 21 U/L (5-34); Albumin 4.9 g/dL (3.5-5.0); Alkaline Phosphatase 96 U/L (40-110); Anion Gap 14 mmol/L (10-20); BUN (Urea Nitrogen) 17 mg/dL (8.9-20.6); Bilirubin, Total 1.4 mg/dL (0.2-1.2); Calc. Creatinine Clearance 0 mL/min (70-130); Carbon Dioxide 25 mmol/L (22-29); Chloride 104 mmol/L (98-107); Estimated GFR-MDRD 53; Globulin 3.3 g/dL (2.4-3.5); Glucose 95 mg/dL (70-105); Lipase 11 U/L (8-78); Protein, Total 8.2 g/dL (6.0-8.3); Sodium 140 mmol/L (136-145)
[2019-01-03 17:58] LABS: Potassium 2.7 mmol/L (3.5-5.1)
--- NOTE | 2019-01-03 17:58 | ULT ---
Bilateral renal ultrasound CLINICAL INDICATION: Left flank pain. History of kidney stones. COMPARISON: 12/19/[address] abdomen on 12/07/2018 FINDINGS: Right kidney: Several echogenic foci are seen within the right kidney which do not demonstrate executive receptionist ior shadowing. Largest calcification is seen midportion right kidney measuring 13 mm x 5 mm. Findings are most suggestive of nonobstructing right renal calculi. There is no hydronephrosis or anushka al mass seen.The right kidney measures 11.2 cm in length. Left kidney: A few scattered nonshadowing echogenic foci are seen in the left kidney which may also r epresent renal calculi especially given the appearance of the left kidney on prior CT exam demonstrating multiple left renal calculi. There is no hydronephrosis or renal mass involving the lef t kidney.The left kidney measures 11.1 cm in length. Urinary bladder: An echogenic focus is seen in the dependent portion of the urinary bladder which is difficult to further evaluate on this exam. Definitive shadowing is not seen to suggest that this represents a calculus. Echogenic focus was also seen in the urinary bladder on prior ultrasound exam. However, no calculus is seen in the urinary bladder on CT exam on 12/07/2018. IMPRESSION: 1. Echogenic focus in the urinary bladder. This was also present on the prior exam. This echogenic fo cus is in similar position. This cannot be confirmed to represent a calculus on this exam. No calculus is seen in urinary bladder on CT exam on 12/07/2018. Direct visualization would be helpful fo r further evaluation. 2. Nonobstructing bilateral renal calculi. There is no hydronephrosis seen bilaterally.
[2019-01-03 18:27] LABS: Bacteria/HPF None Seen HPF (None Seen); Bilirubin Negative (Negative); Blood, Urine 1+ (Negative); Clarity Clear (Clear); Glucose, Urine (Dipstick) Normal (Negative); Leukocyte 75 Leu/uL (Negative); Nitrite Negative (Negative); Protein, Urine (Dipstick) 20 mg/dL (Neg-Trace); Squamous Epithelial None Seen HPF (0-3)
[2019-01-03] MEDS ORDERED: Morphine 4 MG/ML VIAL ONE ×2 (18:51→20:06)
[2019-01-03] MEDS ORDERED: cefTRIAXone\\ROCEPHIN 2 GM VIAL ONE (20:06)
[2019-01-03] MEDS ORDERED: Potassium Chloride 20 MEQ TAB ONE (20:06)
[2019-01-03] MEDS ORDERED: HYDROcodone/Acetaminophen 5/325 mg Tablet PO PRN (20:54)
[2019-01-03] MEDS ORDERED: Acetaminophen 325 MG TAB PO PRN (20:54)
[2019-01-03] MEDS ORDERED: Acetaminophen 650 MG Suppository PR PRN (20:54)
[2019-01-03] MEDS ORDERED: Ondansetron ODT 4 MG TAB PO PRN (20:54)
[2019-01-03] MEDS ORDERED: Ondansetron PF 4 MG/2 ML Vial IVP PRN (20:54)
[2019-01-03] MEDS ORDERED: Potassium Chloride 20 MEQ in Premix Bag 1 BAG IVPB SCH (21:15)
--- NOTE | 2019-01-03 21:19 | PDOC.HHP ---
Hospitalist HPI - History of Present Illness Right flank pain History of Present Illness: Mr. Steiner is a 43 year old man with known history of kidney stones who has had multiple stents placed in the past. The last in 10/2018 to the left kidney which were removed. He states he began experiencing right lower back pain early hours this morning at 3am. The pain began to wrap around to the right side of his abdomen. It was severe but intermittent. No radiating pain to the groin however he reports sharp pain "like a needle" in the groin which is separate from the throbbing 9/10 in the right flank/abdomen. He states he passed a small stone this morning at approximately 10am but continues with the pain. Reports having loose stools this morning and nausea with vomiting. Patient is known to Dr. Nunez. ED Course: Labs done in the ED were notable for hypokalemia, he was therefore given PO and IV replacement. WCC 12.2, Hgb 15.3, Neutrophils 59.9. Bilirubin 1.4, remaining LFTs normal. BUN 17, creatinin 1.45, GFR 53. He was started on IV Abx with vancomycin and rocephin. For pain he has received a total of 12 mg of Morphine, 50 mcg of Fentanyl, 30 mg of Toradol. Zofran given x 2 for n/v. Denies any vomiting since arriving to ED. He was also given 1 L of NS. Renal US showed echogenic focus in the urinary bladder. Nonobstructing bilateral renal calculi present without any hydronephrosis seen bilaterally. Hospitalist History - Past Medical History Cardiac: reports: HTN Heme/Onc: reports: Other (Hereditary spherocytosis) Renal/: reports: Other (Nephrolithiasis, requiring multiple stents in the past. Seen by Dr. Nunez.) - Past Surgical History Past Surgical History: reports: Cholecystectomy, Tonsillectomy Other Surgical History: Splenectomy Lymph node removed from groin Kidney stents x 5 Lithotripsy - Family History Family History: reports: no pertinent history - Social History Smoking Status: Never smoker Alcohol: reports: None Drugs: reports: none Living Situation: With Family Activity level: independent ambulation - Exam General Appearance: ill appearing (Appears to be in obvious discomfort) Eye: PERRL, anicteric sclera ENT: normocephalic atraumatic, no oropharyngeal lesions, moist mucosa Neck: supple, symmetric, no JVD, no thyromegaly, no lymphadenopathy Heart: RRR, no murmur, no gallops, no rubs Respiratory: CTAB, no wheezes, no rales, no ronchi, normal chest expansion, no tachypnea Gastrointestinal: soft, no guarding, no rigidity, tender to palpation (to right side of abdomen) Extremities: no cyanosis, no clubbing, no edema Skin: normal turgor, no lesions, no rashes Neurological: cranial nerve grossly intact, normal sensation to touch, no weakness Musculoskeletal: normal tone, normal strength, no muscle wasting Psychiatric: normal affect, normal behavior, A&O x 3 Hospitalist Results - Labs Result Diagrams: 01/03/19 17:12 01/03/19 17:12 Lab results: WBC 12.2 thou/uL (4.8-10.8) H 01/03/19 17:12 Hgb 15.3 g/dL (14.0-18.0) 01/03/19 17:12 Hct 42.3 % (42.0-52.0) 01/03/19 17:12 MCV 91.7 fL (78.0-98.0) 01/03/19 17:12 Plt Count 548 thou/uL (130-400) H 01/03/19 17:12 Neutrophils % 59.9 % (42.0-75.0) 01/03/19 17:12 Sodium 140 mmol/L (136-145) 01/03/19 17:12 Potassium 2.7 mmol/L (3.5-5.1) L* 01/03/19 17:12 Chloride 104 mmol/L (98-107) 01/03/19 17:12 Carbon Dioxide 25 mmol/L (22-29) 01/03/19 17:12 BUN 17 mg/dL (8.9-20.6) 01/03/19 17:12 Creatinine 1.45 mg/dL (0.7-1.3) H 01/03/19 17:12 Glucose 95 mg/dL (70-105) 01/03/19 17:12 Lactic Acid 1.0 mmol/L (0.5-2.2) 01/03/19 19:21 Calcium 10.0 mg/dL (7.8-10.44) 01/03/19 17:12 Total Bilirubin 1.4 mg/dL (0.2-1.2) H 01/03/19 17:12 AST 21 U/L (5-34) 01/03/19 17:12 ALT 21 U/L (8-55) 01/03/19 17:12 Alkaline Phosphatase 96 U/L (40-110) 01/03/19 17:12 Serum Total Protein 8.2 g/dL (6.0-8.3) 01/03/19 17:12 Albumin 4.9 g/dL (3.5-5.0) 01/03/19 17:12 Lipase 11 U/L (8-78) 01/03/19 17:12 Urine Ketones Negative mg/dL (Negative) 01/03/19 18:06 Urine Blood 1+ (Negative) A 01/03/19 18:06 Urine Nitrite Negative (Negative) 01/03/19 18:06 Ur Leukocyte Esterase 75 Brent/uL (Negative) A 01/03/19 18:06 Urine RBC 4-6 HPF (0-3) A 01/03/19 18:06 Urine WBC 7-10 HPF (0-3) A 01/03/19 18:06 Ur Squamous Epith Cells None Seen HPF (0-3) 01/03/19 18:06 Urine Bacteria None Seen HPF (None Seen) 01/03/19 18:06 Hospitalist H&P A/P - Problem (1) Right flank pain Code(s): R10.9 - UNSPECIFIED ABDOMINAL PAIN Status: Acute (2) Nephrolithiasis Status: Chronic (3) Pyelonephritis Code(s): N12 - TUBULO-INTERSTITIAL NEPHRITIS, NOT SPCF ACUTE OR CHRONIC Status: Acute (4) Diarrhea Code(s): R19.7 - DIARRHEA, UNSPECIFIED Status: Acute (5) Hypokalemia Code(s): E87.6 - HYPOKALEMIA Status: Chronic (6) OMEGA (acute kidney injury) Code(s): N17.9 - ACUTE KIDNEY FAILURE, UNSPECIFIED Status: Acute - Plan Plan: Continue IVF and IV Abx. Consult placed to Dr. Nunez. UA/UCx. Will obtain CT A/P without contrast. Monitor BP, resume home medications once verified. Continue with pain management. GI Prophylaxis with famotidine. DVT Prophylaxis with mechanical SCDs. CODE STATUS: FULL SURROGATE DECISION MAKER: Macy Steiner
[2019-01-03 22:49] VITALS: BMI 31.7
[2019-01-03] MEDS: Sodium Chloride 0.9% 1,000 ML IV SCH (22:59)
[2019-01-03] MEDS: Famotidine/PF 20 mg/2ml Vial SLOW IVP SCH (23:00)
[2019-01-03] MEDS: Ketorolac Tromethamine 30 MG/ML VIAL IVP PRN (23:00)
[2019-01-04] MEDS: HYDROcodone/Acetaminophen 5/325 mg Tablet PO PRN ×3 (00:36→08:44)
[2019-01-04 06:12] LABS: #Basophils 0.1 thou/uL (0.0-0.2); #Eosinphils 0.4 thou/uL (0.0-0.7); #Lymphocytes 3.2 thou/uL (1.20-3.40); #Monocytes 1.4 thou/uL (0.11-0.59); #Neutrophils 4.5 thou/uL (1.40-6.50); %Eosinophils 4.4 % (0.0-10.0); %Lymphocytes 33.7 % (21.0-51.0); %Monocytes 14.2 % (0.0-10.0); %Neutrophils 46.7 % (42.0-75.0); Hemoglobin 13.6 g/dL (14.0-18.0); Mean Corpuscular HGB CONC 36.5 g/dL (32.0-36.0); Mean Corpuscular Hemoglobin 34.1 pg (27.0-31.0); Mean Corpuscular Volume 93.3 fL (78.0-98.0); Mean Platelet Volume 8.1 fL (7.4-10.4); Platelet Count 480 thou/uL (130-400); RBC Distribution Width 12.8 % (11.5-14.5); Red Blood Cell (RBC) Count 3.98 mill/uL (4.70-6.10); White Blood Cell (WBC) Count 9.6 thou/uL (4.8-10.8)
[2019-01-04 06:15] LABS: Anion Gap 10 mmol/L (10-20); BUN (Urea Nitrogen) 18 mg/dL (8.9-20.6); Calc. Creatinine Clearance 105 mL/min (70-130); Calcium 8.5 mg/dL (7.8-10.44); Carbon Dioxide 26 mmol/L (22-29); Chloride 108 mmol/L (98-107); Estimated GFR-MDRD 63; Glucose 92 mg/dL (70-105); Potassium 3.2 mmol/L (3.5-5.1); Sodium 141 mmol/L (136-145)
[2019-01-04] MEDS: Ketorolac Tromethamine 30 MG/ML VIAL IVP PRN (07:42)
[2019-01-04] MEDS: Famotidine/PF 20 mg/2ml Vial SLOW IVP SCH ×2 (07:46→19:52)
[2019-01-04] MEDS ORDERED: Potassium Chloride 40 MEQ in Sodium Chloride 0.9% 250 ML 250 ML IVPB SCH (08:30)
[2019-01-04] MEDS: Vancomycin HCl 1.5 GM in Sodium Chloride 0.9% 250 ML 300 ML IVPB SCH ×2 (08:36→21:20)
[2019-01-04] MEDS: Sodium Chloride 0.9% 1,000 ML IV SCH ×2 (08:45→18:01)
[2019-01-04] MEDS ORDERED: FLU VACC QS2019-20(6MOS UP)/PF 60 MCG/0.5 ML SYRINGE IM ONE (09:00)
[2019-01-04] MEDS ORDERED: Morphine 2 MG/ML SYRINGE SLOW IVP SCH (11:45)
--- NOTE | 2019-01-04 12:53 | PDOC.HOSPP ---
- Subjective Encounter Date: 01/04/19 Encounter Time: 09:51 Subjective: 43 y/o male with nephrolithiasis s/p stents, admitted with acute R flank pain associated with Nausea and vomiting. CT scan showed bilateral non obstructing stones. still having right flank pain. - Objective Vital Signs & Weight: Vital Signs (12 hours) Temp Pulse Resp BP BP Pulse Ox 01/04/19 11:16 97.7 F 75 18 161/103 H 95 01/04/19 08:00 97 01/04/19 07:03 97.8 F 80 20 160/101 H 97 01/04/19 04:00 97.6 F 72 20 144/89 H 96 Weight Weight 215 lb Result Diagrams: 01/04/19 05:12 01/04/19 05:12 Hospitalist ROS - Medication Medications: Active Medications Generic Name Dose Route Start Last Admin Trade Name Freq PRN Reason Stop Dose Admin Hydrocodone Bitart/Acetaminophen 2 tab 01/03/19 20:54 01/04/19 08:44 [place] 5/325 PO 2 tab Q4H PRN Administration Severe Pain (7-10) Famotidine 20 mg 01/03/19 21:00 01/04/19 07:46 Pepcid SLOW IVP 20 mg Q12HR ROXANA Administration Sodium Chloride 1,000 mls @ 100 mls/hr 01/03/19 22:00 01/04/19 08:45 Normal Saline 0.9% IV 1,000 mls .Q10H ROXANA Administration Vancomycin HCl 1.5 gm/ Sodium 300 mls @ 200 mls/hr 01/04/19 09:00 01/04/19 08 :36 Chloride IVPB 300 mls Q12HR ROXANA Administration Morphine Sulfate 2 mg 01/04/19 11:45 01/04/19 11:56 Morphine SLOW IVP 01/04/19 13:00 2 mg NOW ROXANA Administration - Exam General Appearance: awake alert Eye: anicteric sclera ENT: normocephalic atraumatic Neck: supple, symmetric, no JVD Heart: RRR Respiratory: no wheezes, no rales, no ronchi, normal chest expansion Gastrointestinal: soft, non-tender, non-distended, normal bowel sounds Extremities: no cyanosis, no edema Neurological: cranial nerve grossly intact, no focal deficits Psychiatric: normal affect, A&O x 3 Hosp A/P (1) Nephrolithiasis Status: Acute (2) Pyelonephritis Code(s): N12 - TUBULO-INTERSTITIAL NEPHRITIS, NOT SPCF ACUTE OR CHRONIC Status: Suspected (3) SIRS (systemic inflammatory response syndrome) Code(s): R65.10 - SIRS OF NON-INFECTIOUS ORIGIN W/O ACUTE ORGAN DYSFUNCTION Status: Acute (4) OMEGA (acute kidney injury) Code(s): N17.9 - ACUTE KIDNEY FAILURE, UNSPECIFIED Status: Acute (5) Right flank pain Code(s): R10.9 - UNSPECIFIED ABDOMINAL PAIN Status: Acute (6) Hypokalemia Code(s): E87.6 - HYPOKALEMIA Status: Chronic (7) Acute gastroenteritis Code(s): K52.9 - NONINFECTIVE GASTROENTERITIS AND COLITIS, UNSPECIFIED Status : Acute (8) Hypertension Code(s): I10 - ESSENTIAL (PRIMARY) HYPERTENSION Status: Chronic - Plan Analgesic and antiemetic as needed Start flomax Continue broad spectrum antibiotics. Replete serum potassium Restart antihypertensives and adjust to get adequate BP control. Continue IVF. Awaiting Urology evaluation
[2019-01-04] MEDS ORDERED: Amlodipine 10 MG TAB PO SCH ×2 (13:00→21:00)
[2019-01-04] MEDS ORDERED: Tamsulosin HCl 0.4 MG CAP PO SCH (13:00)
[2019-01-04] MEDS ORDERED: Losartan 25 MG TAB PO SCH ×2 (13:00→21:00)
[2019-01-04] MEDS: Morphine 4 MG/ML VIAL SLOW IVP PRN ×3 (14:08→22:27)
[2019-01-04] MEDS ORDERED: cefTRIAXone\\ROCEPHIN 2 GM in Sodium Chloride 0.9% 100 ML IVPB SCH (21:00)
[2019-01-05] MEDS: Morphine 4 MG/ML VIAL SLOW IVP PRN ×2 (02:37→06:43)
[2019-01-05] MEDS: Sodium Chloride 0.9% 1,000 ML IV SCH ×2 (05:08→09:19)
[2019-01-05 05:50] LABS: ALT (SGPT) 19 U/L (8-55); AST (SGOT) 16 U/L (5-34); Albumin 3.8 g/dL (3.5-5.0); Alkaline Phosphatase 75 U/L (40-110); Anion Gap 12 mmol/L (10-20); BUN (Urea Nitrogen) 17 mg/dL (8.9-20.6); Bilirubin, Total 0.6 mg/dL (0.2-1.2); Calc. Creatinine Clearance 102 mL/min (70-130); Calcium 8.5 mg/dL (7.8-10.44); Carbon Dioxide 26 mmol/L (22-29); Chloride 106 mmol/L (98-107); Estimated GFR-MDRD 61; Globulin 2.6 g/dL (2.4-3.5); Glucose 98 mg/dL (70-105); Potassium 3.3 mmol/L (3.5-5.1); Protein, Total 6.4 g/dL (6.0-8.3); Sodium 141 mmol/L (136-145)
[2019-01-05 07:12] VITALS: BP 130/88; TEMP 97.6
[2019-01-05 08:06] LABS: Vancomycin, Trough 19.6 ug/mL
[2019-01-05] MEDS: Famotidine/PF 20 mg/2ml Vial SLOW IVP SCH (08:16)
[2019-01-05] MEDS ORDERED: Tamsulosin HCl 0.4 MG CAP PO SCH (09:00)
[2019-01-05] MEDS ORDERED: Amlodipine 10 MG TAB PO SCH (09:00)
[2019-01-05] MEDS ORDERED: Vancomycin HCl 1.25 GM in Sodium Chloride 0.9% 250 ML 250 ML IVPB SCH (09:00)
[2019-01-05] MEDS: Vancomycin HCl 1.5 GM in Sodium Chloride 0.9% 250 ML 300 ML IVPB SCH (09:15)
[2019-01-05] MEDS: Potassium Chloride 20 MEQ TAB PO SCH ×2 (09:18→13:11)
[2019-01-05] MEDS: HYDROcodone/Acetaminophen 5/325 mg Tablet PO PRN (10:57)
--- NOTE | 2019-01-05 12:57 | PDOC.EVN ---
Event Note - Event Note Event Note: Discharge summary dictated. # [id number]
--- NOTE | 2019-01-05 13:12 | DIS ---
DATE OF ADMISSION: 01/03/2019 DATE OF DISCHARGE: 01/05/2019 PRIMARY CARE PHYSICIAN: Dr. Glynn Westfall. DISCHARGE DIAGNOSES: 1. Bilateral nephrolithiasis. 2. Suspected pyelonephritis. 3. Acute kidney injury. 4. Possible sepsis, present on admission. 5. Right flank pain. 6. Hypokalemia. 7. Acute gastroenteritis. 8. Hypertension. 9. Chronic kidney disease, stage 3. HOSPITAL COURSE: A 43-year-old male with known history of nephrolithiasis, being followed up by urologist, admitted with acute onset of right flank pain associated with nausea, vomiting, and diarrhea. The patient on presentation was found to have features of urinary tract infection and also was found to have SIRS features including leukocytosis and tachycardia. Impression of sepsis from suspected pyelonephritis was made and the patient was started on antibiotic therapy as well as IV fluid. Renal function improved and systemic inflammatory response resolved. Urology consult was requested. However, urologist recommended outpatient followup with his office. The patient's right flank pain improved. The patient continued to complain of pain and was subsequently discharged home. Blood pressure improved with recommencement of usual home medications. The patient also received potassium supplementation for hypokalemia with improvement. PHYSICAL EXAMINATION: VITAL SIGNS: Temperature 97.6, pulse 67, respiratory rate 18, SpO2 of 97% on room air, blood pressure is 130/88. GENERAL: Young male, in no obvious distress. Afebrile. Anicteric. Acyanotic. HEENT: Normocephalic, atraumatic. Oral mucosa is moist. CARDIOVASCULAR: Regular rhythm and rate with normal heart sounds 1 and 2. RESPIRATORY: Fair air entry bilaterally with no obvious crackle, rhonchi, or use of accessory muscles. GASTROINTESTINAL: Obese, soft, nontender, and nondistended with normal bowel sounds. EXTREMITIES: Grossly normal, looking atraumatic with no edema or erythema. CENTRAL NERVOUS SYSTEM: Conscious, alert, oriented x3 with appropriate mental status. Cranial nerves 2 through 12 are grossly intact. The patient is ambulant. DISCHARGE CONDITION: Improved. DISCHARGE DISPOSITION: Home. DISCHARGE MEDICATIONS: 1. Amlodipine 10 mg p.o. daily. 2. Losartan 50 mg p.o. daily. 3. Metoprolol succinate 100 mg p.o. b.i.d. 4. Potassium chloride 20 mEq p.o. b.i.d. 5. Sertraline 50 mg p.o. daily. 6. Flomax 0.4 mg p.o. b.i.d. 7. Acetaminophen with codeine (Tylenol No. 3) 300/30 mg tablets one q.6 hours p.r.n. 8. Levofloxacin 500 mg p.o. daily for 7 days. FOLLOWUP: 1. With PCP in 7 days. 2. With urologist in 7 days. 3. The patient also has an appointment with peanut shaker and was advised to follow up with that appointment. TIME SPENT: Discharge took more than 33 minutes. Job ID: [id number]
== END 2019-01-05 14:20 | disposition home or self-care (01) | DRG 872 ==
LOC: ERS 16:57 → T4-A 22:16
PROVIDERS: ADMIT Internal Medicine; ATTEND Internal Medicine
DX: A41.9 Sepsis, unspecified organism (principal); N17.9 Acute kidney failure, unspecified; N10 Acute pyelonephritis; N20.0 Calculus of kidney; E87.6 Hypokalemia; K52.9 Noninfective gastroenteritis and colitis, unspecified; I12.9 Hypertensive chronic kidney disease with stage 1 through stage 4 chronic kidney disease, or unspecified chronic kidney disease; N18.3 Chronic kidney disease, stage 3 (moderate); Z90.49 Acquired absence of other specified parts of digestive tract; Z23 Encounter for immunization
CPT/HCPCS: 36415; 76770; 80048; 80053; 80202; 81003; 81015; 83605; 83690; 83735; 85025; 87040; 87086; 96361; 96365; 96367; 96375; 96376; J0696; J1885; J2270; J2405; J3010; J3370; J3480; J3490; J7050; S0028

== ENCOUNTER 2019-01-21 08:07 | Emergency (ER) | payer BC ==
[2019-01-21 09:16] LABS: ALT (SGPT) 15 U/L (8-55); AST (SGOT) 16 U/L (5-34); Albumin 4.6 g/dL (3.5-5.0); Alkaline Phosphatase 89 U/L (40-110); Anion Gap 14 mmol/L (10-20); BUN (Urea Nitrogen) 19 mg/dL (8.9-20.6); Calc. Creatinine Clearance 0 mL/min (70-130); Calcium 9.6 mg/dL (7.8-10.44); Carbon Dioxide 25 mmol/L (22-29); Chloride 105 mmol/L (98-107); Estimated GFR-MDRD 62; Glucose 101 mg/dL (70-105); Lipase 7 U/L (8-78); Protein, Total 7.6 g/dL (6.0-8.3); Sodium 141 mmol/L (136-145)
[2019-01-21 09:18] LABS: Potassium 2.9 mmol/L (3.5-5.1)
[2019-01-21] MEDS ORDERED: Potassium Chloride 20 MEQ TAB ONE (09:24)
[2019-01-21] MEDS ORDERED: Ondansetron PF 4 MG/2 ML Vial ONE (09:25)
[2019-01-21] MEDS ORDERED: Ketorolac Tromethamine 30 MG/ML VIAL ONE (09:26)
[2019-01-21 09:50] LABS: Bacteria/HPF None Seen HPF (None Seen); Bilirubin Negative (Negative); Blood, Urine Trace (Negative); Clarity Clear (Clear); Glucose, Urine (Dipstick) Normal (Negative); Leukocyte Negative Leu/uL (Negative); Nitrite Negative (Negative); Protein, Urine (Dipstick) Negative (Neg-Trace); RBC/HPF 0-3 HPF (0-3); Squamous Epithelial None Seen HPF (0-3); Urobilinogen Normal mg/dL (Less than 2)
[2019-01-21 09:51] LABS: #Basophils 0.1 thou/uL (0.0-0.2); #Eosinphils 0.7 thou/uL (0.0-0.7); #Lymphocytes 3.4 thou/uL (1.20-3.40); #Monocytes 1.2 thou/uL (0.11-0.59); #Neutrophils 5.6 thou/uL (1.40-6.50); %Basophils 0.5 % (0.0-1.0); %Eosinophils 6.8 % (0.0-10.0); %Lymphocytes 31.2 % (21.0-51.0); %Monocytes 10.5 % (0.0-10.0); %Neutrophils 50.8 % (42.0-75.0); Hemoglobin 14.9 g/dL (14.0-18.0); Mean Corpuscular HGB CONC 35.5 g/dL (32.0-36.0); Mean Corpuscular Hemoglobin 32.9 pg (27.0-31.0); Mean Corpuscular Volume 92.5 fL (78.0-98.0); Mean Platelet Volume 8.2 fL (7.4-10.4); Platelet Count 545 thou/uL (130-400); RBC Distribution Width 12.1 % (11.5-14.5); Red Blood Cell (RBC) Count 4.52 mill/uL (4.70-6.10); White Blood Cell (WBC) Count 10.9 thou/uL (4.8-10.8)
[2019-01-21] MEDS ORDERED: Fentanyl 100 MCG/2 ML VIAL ONE (11:27)
== END 2019-01-21 11:42 | disposition home or self-care (01) ==
LOC: ERS 08:07
DX: N20.0 Calculus of kidney (principal); I10 Essential (primary) hypertension; F41.9 Anxiety disorder, unspecified; Z79.899 Other long term (current) drug therapy
CPT/HCPCS: 80053; 81003; 81015; 83690; 85025; 96361; 96374; 96375; J1885; J2405; J3010

== ENCOUNTER 2019-03-20 13:12 | Emergency (ER) | payer BC ==
[2019-03-20 13:46] LABS: #Basophils 0.1 thou/uL (0.0-0.2); #Eosinphils 0.5 thou/uL (0.0-0.7); #Lymphocytes 2.9 thou/uL (1.20-3.40); #Monocytes 1.2 thou/uL (0.11-0.59); %Basophils 0.5 % (0.0-1.0); %Eosinophils 3.9 % (0.0-10.0); %Lymphocytes 22.8 % (21.0-51.0); %Monocytes 9.7 % (0.0-10.0); %Neutrophils 63.2 % (42.0-75.0); Hemoglobin 14.9 g/dL (14.0-18.0); Mean Corpuscular HGB CONC 36.3 g/dL (32.0-36.0); Mean Corpuscular Hemoglobin 32.7 pg (27.0-31.0); Mean Platelet Volume 8.2 fL (7.4-10.4); Platelet Count 528 thou/uL (130-400); RBC Distribution Width 12.1 % (11.5-14.5); Red Blood Cell (RBC) Count 4.56 mill/uL (4.70-6.10); White Blood Cell (WBC) Count 12.6 thou/uL (4.8-10.8)
[2019-03-20 13:58] LABS: ALT (SGPT) 18 U/L (8-55); AST (SGOT) 17 U/L (5-34); Albumin 4.3 g/dL (3.5-5.0); Alkaline Phosphatase 108 U/L (40-110); Anion Gap 13 mmol/L (10-20); BUN (Urea Nitrogen) 14 mg/dL (8.9-20.6); Bilirubin, Total 1.5 mg/dL (0.2-1.2); Calc. Creatinine Clearance 0 mL/min (70-130); Calcium 9.7 mg/dL (7.8-10.44); Carbon Dioxide 29 mmol/L (22-29); Chloride 102 mmol/L (98-107); Estimated GFR-MDRD 53; Globulin 3.2 g/dL (2.4-3.5); Glucose 159 mg/dL (70-105); Potassium 3.1 mmol/L (3.5-5.1); Protein, Total 7.5 g/dL (6.0-8.3); Sodium 141 mmol/L (136-145)
[2019-03-20] MEDS ORDERED: Ketorolac Tromethamine 30 MG/ML VIAL ONE (16:17)
== END 2019-03-20 16:50 | disposition home or self-care (01) ==
LOC: ERS 13:12
DX: J11.1 Influenza due to unidentified influenza virus with other respiratory manifestations (principal); I10 Essential (primary) hypertension; F41.9 Anxiety disorder, unspecified; Z79.899 Other long term (current) drug therapy
CPT/HCPCS: 36415; 80053; 85025; 87804; 93005; 96372; J1885

== ENCOUNTER 2019-03-28 18:17 | Emergency (ER) | payer BC ==
[2019-03-28] MEDS ORDERED: Ondansetron PF 4 MG/2 ML Vial ONE (18:56)
[2019-03-28] MEDS ORDERED: Ketorolac Tromethamine 30 MG/ML VIAL ONE (18:56)
[2019-03-28] MEDS ORDERED: Morphine 4 MG/ML VIAL ONE ×2 (18:56→20:44)
--- NOTE | 2019-03-28 19:27 | ULT ---
Renal sonogram HISTORY: Flank pain. Stones. FINDINGS: Multiple shadowing foci associated with nondilated calyces of each kidney correlate with st ones that have been seen on prior exams. No hydronephrosis. No solid mass apparent. Urinary bladder is incompletely distended. No stone is visible within the bladder. IMPRESSION: Nonobstructing bilateral renal calculi.
[2019-03-28 19:39] LABS: #Eosinphils 0.3 thou/uL (0.0-0.7); #Lymphocytes 3.8 thou/uL (1.20-3.40); #Monocytes 1.4 thou/uL (0.11-0.59); #Neutrophils 7.4 thou/uL (1.40-6.50); %Basophils 0.3 % (0.0-1.0); %Eosinophils 2.2 % (0.0-10.0); %Lymphocytes 29.7 % (21.0-51.0); %Monocytes 10.5 % (0.0-10.0); %Neutrophils 57.3 % (42.0-75.0); Hemoglobin 14.9 g/dL (14.0-18.0); Mean Corpuscular HGB CONC 37.2 g/dL (32.0-36.0); Mean Corpuscular Hemoglobin 33.3 pg (27.0-31.0); Mean Corpuscular Volume 89.5 fL (78.0-98.0); Mean Platelet Volume 8.3 fL (7.4-10.4); Platelet Count 580 thou/uL (130-400); Red Blood Cell (RBC) Count 4.49 mill/uL (4.70-6.10); White Blood Cell (WBC) Count 12.9 thou/uL (4.8-10.8)
[2019-03-28 20:05] LABS: ALT (SGPT) 17 U/L (8-55); AST (SGOT) 17 U/L (5-34); Albumin 4.5 g/dL (3.5-5.0); Alkaline Phosphatase 101 U/L (40-110); Anion Gap 13 mmol/L (10-20); BUN (Urea Nitrogen) 16 mg/dL (8.9-20.6); Bilirubin, Total 1.3 mg/dL (0.2-1.2); Calc. Creatinine Clearance 0 mL/min (70-130); Calcium 9.6 mg/dL (7.8-10.44); Carbon Dioxide 28 mmol/L (22-29); Chloride 105 mmol/L (98-107); Estimated GFR-MDRD 52; Globulin 3.4 g/dL (2.4-3.5); Glucose 104 mg/dL (70-105); Protein, Total 7.9 g/dL (6.0-8.3); Sodium 143 mmol/L (136-145)
[2019-03-28 20:10] LABS: Potassium 2.6 mmol/L (3.5-5.1)
[2019-03-28 20:27] LABS: Bacteria/HPF None Seen HPF (None Seen); Bilirubin Negative (Negative); Blood, Urine 1+ (Negative); Clarity Clear (Clear); Glucose, Urine (Dipstick) Normal (Negative); Leukocyte 75 Leu/uL (Negative); Nitrite Negative (Negative); Protein, Urine (Dipstick) 20 mg/dL (Neg-Trace); RBC/HPF 0-3 HPF (0-3); Squamous Epithelial 0-3 HPF (0-3)
[2019-03-28] MEDS ORDERED: Potassium Chloride 20 MEQ TAB ONE ×2 (20:44→20:56)
== END 2019-03-28 22:30 | disposition home or self-care (01) ==
LOC: ERS 18:17
DX: N20.0 Calculus of kidney (principal); E87.6 Hypokalemia; I10 Essential (primary) hypertension; F41.9 Anxiety disorder, unspecified; Z87.442 Personal history of urinary calculi; Z79.899 Other long term (current) drug therapy
CPT/HCPCS: 76770; 80053; 81003; 81015; 85025; 96361; 96374; 96375; 96376; J1885; J2270; J2405

== ENCOUNTER 2019-03-31 16:09 | Emergency (ER) | payer BC ==
[2019-03-31] MEDS ORDERED: Ondansetron PF 4 MG/2 ML Vial ONE (16:34)
[2019-03-31] MEDS ORDERED: Morphine 4 MG/ML VIAL ONE ×3 (16:34→19:31)
[2019-03-31 16:49] LABS: #Lymphocytes 3.8 thou/uL (1.20-3.40); #Monocytes 1.5 thou/uL (0.11-0.59); #Neutrophils 7.8 thou/uL (1.40-6.50); %Basophils 0.3 % (0.0-1.0); %Eosinophils 7.3 % (0.0-10.0); %Lymphocytes 26.9 % (21.0-51.0); %Monocytes 10.4 % (0.0-10.0); %Neutrophils 55.2 % (42.0-75.0); Hemoglobin 15.5 g/dL (14.0-18.0); Mean Corpuscular HGB CONC 37.1 g/dL (32.0-36.0); Mean Corpuscular Hemoglobin 33.3 pg (27.0-31.0); Mean Corpuscular Volume 89.8 fL (78.0-98.0); Mean Platelet Volume 7.9 fL (7.4-10.4); Platelet Count 558 thou/uL (130-400); RBC Distribution Width 12.1 % (11.5-14.5); Red Blood Cell (RBC) Count 4.65 mill/uL (4.70-6.10); White Blood Cell (WBC) Count 14.2 thou/uL (4.8-10.8)
[2019-03-31 16:51] LABS: ALT (SGPT) 19 U/L (8-55); AST (SGOT) 19 U/L (5-34); Albumin 4.3 g/dL (3.5-5.0); Alkaline Phosphatase 107 U/L (40-110); Anion Gap 11 mmol/L (10-20); BUN (Urea Nitrogen) 16 mg/dL (8.9-20.6); Bilirubin, Total 1.1 mg/dL (0.2-1.2); Calc. Creatinine Clearance 0 mL/min (70-130); Calcium 9.2 mg/dL (7.8-10.44); Carbon Dioxide 27 mmol/L (22-29); Chloride 104 mmol/L (98-107); Estimated GFR-MDRD 63; Globulin 3.3 g/dL (2.4-3.5); Glucose 107 mg/dL (70-105); Potassium 3.3 mmol/L (3.5-5.1); Protein, Total 7.6 g/dL (6.0-8.3); Sodium 139 mmol/L (136-145)
[2019-03-31 17:28] LABS: Bacteria/HPF None Seen HPF (None Seen); Bilirubin Negative (Negative); Blood, Urine 1+ (Negative); Clarity Clear (Clear); Glucose, Urine (Dipstick) Normal (Negative); Leukocyte Negative Leu/uL (Negative); Nitrite Negative (Negative); Protein, Urine (Dipstick) 20 mg/dL (Neg-Trace); RBC/HPF 0-3 HPF (0-3); Squamous Epithelial None Seen HPF (0-3)
[2019-03-31] MEDS ORDERED: Ketorolac Tromethamine 30 MG/ML VIAL ONE (17:41)
[2019-03-31] MEDS ORDERED: Acetaminophen 500 MG TAB ONE (19:32)
== END 2019-03-31 20:37 | disposition home or self-care (01) ==
LOC: ERS 16:09
DX: R10.9 Unspecified abdominal pain (principal); R30.0 Dysuria; I10 Essential (primary) hypertension; F41.9 Anxiety disorder, unspecified; Z79.899 Other long term (current) drug therapy
CPT/HCPCS: 36415; 80053; 81003; 81015; 85025; 96361; 96374; 96375; 96376; J1885; J2270; J2405

== ENCOUNTER 2019-04-18 14:31 | Emergency (ER) | payer BC, SELFPAY ==
[2019-04-18 14:56] LABS: #Eosinphils 0.2 thou/uL (0.0-0.7); #Monocytes 2.1 thou/uL (0.11-0.59); #Neutrophils 12.9 thou/uL (1.40-6.50); %Basophils 0.1 % (0.0-1.0); %Eosinophils 1.1 % (0.0-10.0); %Lymphocytes 16.4 % (21.0-51.0); %Monocytes 11.5 % (0.0-10.0); %Neutrophils 70.8 % (42.0-75.0); Hemoglobin 13.8 g/dL (14.0-18.0); Mean Corpuscular HGB CONC 34.3 g/dL (32.0-36.0); Mean Corpuscular Hemoglobin 31.2 pg (27.0-31.0); Mean Corpuscular Volume 91.1 fL (78.0-98.0); Mean Platelet Volume 7.9 fL (7.4-10.4); Platelet Count 491 thou/uL (130-400); RBC Distribution Width 12.1 % (11.5-14.5); Red Blood Cell (RBC) Count 4.41 mill/uL (4.70-6.10); White Blood Cell (WBC) Count 18.1 thou/uL (4.8-10.8)
[2019-04-18 15:23] LABS: ALT (SGPT) 23 U/L (8-55); AST (SGOT) 18 U/L (5-34); Albumin 4.4 g/dL (3.5-5.0); Alkaline Phosphatase 117 U/L (40-110); Anion Gap 12 mmol/L (10-20); BUN (Urea Nitrogen) 18 mg/dL (8.9-20.6); Bilirubin, Total 2.3 mg/dL (0.2-1.2); Calc. Creatinine Clearance 0 mL/min (70-130); Calcium 9.5 mg/dL (7.8-10.44); Carbon Dioxide 28 mmol/L (22-29); Chloride 102 mmol/L (98-107); Estimated GFR-MDRD 59; Glucose 123 mg/dL (70-105); Lipase Less than 4 U/L (8-78); Potassium 3.6 mmol/L (3.5-5.1); Protein, Total 7.4 g/dL (6.0-8.3); Sodium 138 mmol/L (136-145)
[2019-04-18 15:27] LABS: Bacteria/HPF None Seen HPF (None Seen); Bilirubin Negative (Negative); Blood, Urine 1+ (Negative); Clarity Clear (Clear); Glucose, Urine (Dipstick) Normal (Negative); Leukocyte Negative Leu/uL (Negative); Mucous/LPF 1+ LPF (<2+); Nitrite Negative (Negative); Protein, Urine (Dipstick) 30 mg/dL (Neg-Trace); Squamous Epithelial None Seen HPF (0-3); Urobilinogen Normal mg/dL (Less than 2)
[2019-04-18] MEDS ORDERED: Morphine 4 MG/ML VIAL ONE ×2 (15:41→15:49)
[2019-04-18] MEDS ORDERED: Cefepime 2 GM VIAL ONE (15:42)
--- NOTE | 2019-04-18 16:20 | CT ---
Exam: Abdomen CT without contrast Pelvic CT without contrast HISTORY: Right flank pain COMPARISON: 05/11/2016, 12/07/2018 FINDINGS: Abdomen CT: Lung bases:1 x 1 cm solid nodule with a central calcification, compatible with a partially calcified granuloma. Nodule is unchanged from CT 05/11/2016 Heart size: Normal heart size. Aorta: Caliber aorta. No periaortic fat stranding Solid organs: Limited evaluation by the absence of IV contrast. Grossly no solid organ abnormality. N ote, the spleen is surgically absent. Lymph nodes: No gastrohepatic, retrocrural or periportal lymphadenopathy Gallbladder: Surgically absent Mesentery: Stable enlarged gastrohepatic lymph nodes. Currently, lymph nodes measure 1.2 x 1.4 cm and 1.6 x 1.2 cm. Previously, these lymph nodes measured 1.2 and 1.5 cm in greatest dimension. Kidneys: Redemonstration of bilateral nonobstructing intrarenal calculi. Bilaterally no hydronephrosi s or perinephric fat stranding. Bilateral ureters have a normal caliber. No hydroureter, periureteral fat stranding or ureterolithiasis. There is a 0.3 cm calculus in the distal left ureter, unchanged from the examination in May 2016. Alimentary canal: Limited evaluation due to lack of oral contrast. No evidence of bowel obstruction. Unremarkable ileocecal junction. Normal caliber appendix. Diverticulosis, without evidence of diverticulitis. CT PELVIS: No mass, adenopathy, free air or free fluid. Urinary bladder: Unremarkable. Osseous structures: No lytic or blastic lesions IMPRESSION: 1. Bilateral nonobstructing renal calculi. 2. Chronic calculus in the distal left ureter. 3. Bilaterally no obstructive uropathy. 4. Diverticulosis, without evidence of diverticulitis. Normal caliber appendix. 5. Stable nonspecific enlarged gastrohepatic lymph nodes. Transcribed Date/Time: 04/18/2019 4:53 PM
== END 2019-04-18 17:14 | disposition home or self-care (01) ==
LOC: ERS 14:31
DX: N20.2 Calculus of kidney with calculus of ureter (principal); L03.115 Cellulitis of right lower limb; I10 Essential (primary) hypertension; E87.6 Hypokalemia; Z87.442 Personal history of urinary calculi; Z79.891 Long term (current) use of opiate analgesic; Z79.899 Other long term (current) drug therapy
CPT/HCPCS: 36415; 74176; 80053; 81003; 81015; 83605; 83690; 85025; 87040; 87086; 87149; 87804; 96361; 96365; 96375; J0692; J2270

== ENCOUNTER 2019-04-20 15:56 | Inpatient (IN) | payer MEDICAID, SELFPAY ==
[2019-04-20] MEDS ORDERED: Cefepime 2 GM VIAL ONE (16:23)
[2019-04-20] MEDS ORDERED: Sodium Chloride 0.9% 100 ML ONE (16:24)
[2019-04-20 16:32] LABS: #Eosinphils 0.2 thou/uL (0.0-0.7); #Lymphocytes 2.8 thou/uL (1.20-3.40); #Monocytes 1.5 thou/uL (0.11-0.59); #Neutrophils 7.6 thou/uL (1.40-6.50); %Basophils 0.3 % (0.0-1.0); %Eosinophils 1.7 % (0.0-10.0); %Lymphocytes 23.3 % (21.0-51.0); %Neutrophils 62.7 % (42.0-75.0); Hemoglobin 14.5 g/dL (14.0-18.0); Mean Corpuscular HGB CONC 36.4 g/dL (32.0-36.0); Mean Corpuscular Hemoglobin 33.4 pg (27.0-31.0); Mean Corpuscular Volume 91.6 fL (78.0-98.0); Mean Platelet Volume 8.1 fL (7.4-10.4); Platelet Count 501 thou/uL (130-400); RBC Distribution Width 12.2 % (11.5-14.5); Red Blood Cell (RBC) Count 4.33 mill/uL (4.70-6.10); White Blood Cell (WBC) Count 12.2 thou/uL (4.8-10.8)
[2019-04-20 16:38] LABS: Bacteria/HPF None Seen HPF (None Seen); Bilirubin Negative (Negative); Blood, Urine Trace (Negative); Clarity Clear (Clear); Glucose, Urine (Dipstick) Normal (Negative); Leukocyte Negative Leu/uL (Negative); Nitrite Negative (Negative); Protein, Urine (Dipstick) 30 mg/dL (Neg-Trace); Squamous Epithelial None Seen HPF (0-3); Urobilinogen Normal mg/dL (Less than 2)
[2019-04-20 16:50] LABS: ALT (SGPT) 20 U/L (8-55); AST (SGOT) 17 U/L (5-34); Albumin 4.5 g/dL (3.5-5.0); Alkaline Phosphatase 113 U/L (40-110); Anion Gap 14 mmol/L (10-20); BUN (Urea Nitrogen) 18 mg/dL (8.9-20.6); Bilirubin, Total 0.9 mg/dL (0.2-1.2); Calc. Creatinine Clearance 0 mL/min (70-130); Calcium 9.7 mg/dL (7.8-10.44); Carbon Dioxide 25 mmol/L (22-29); Chloride 105 mmol/L (98-107); Estimated GFR-MDRD 63; Globulin 3.8 g/dL (2.4-3.5); Glucose 111 mg/dL (70-105); Potassium 3.2 mmol/L (3.5-5.1); Protein, Total 8.3 g/dL (6.0-8.3); Sodium 141 mmol/L (136-145)
--- NOTE | 2019-04-20 18:35 | RAD ---
XR Foot Rt 3 View STANDARD HISTORY: Right foot redness and swelling FINDINGS: No fracture or dislocation is identified. No bony destruction or periosteal reaction is identified. T here is a small plantar calcaneal spur.
[2019-04-20] MEDS ORDERED: Lidocaine 1% w/Epinephrine 1:100K 20 ML VIAL ONE (18:49)
[2019-04-20] MEDS ORDERED: Lidocaine 1% PF 5 ML VIAL ONE (19:14)
[2019-04-20] MEDS ORDERED: Ondansetron PF 4 MG/2 ML Vial ONE (19:14)
[2019-04-20] MEDS ORDERED: Morphine 4 MG/ML VIAL ONE (19:14)
--- NOTE | 2019-04-20 19:16 | PDOC.FPRHP ---
- History of Present Illness Chief Complaint: Worsening Left Foot Pain History of Present Illness: Patient is a 43 y/o male with a PMH significant for Hereditary Spherocytosis treated via splenectomy and recurrent nephrolithiasis who presents to the ED for worsening foot pain. The patient was seen in the ED on 04/16 for recurrent nephrolithiasis, at which time he was also evaluated for a small wound on the dorsal aspect of his right foot. He was started on a regimen of PO Bactrim, but states that the wound had gotten progressively larger, more erythematous, and more painful since then. He denies any known inciting event, a history of MRSA infections or frequent skin infections, a history of DM2 or a medication regimen that includes known immunomodulating agents. The patient states that he often walks around barefoot at home, but has not had any difficulty with ambulation since he was previously evaluated. He admits to subjective fever and chills, but states that his temperature has never risen above 100 F (Oral). He denies N/V ABD pain, numbness, syncopal episodes, obvious streaking, or additional skin infections not currently visible. ED Course: While in the ED, an I&D was performed that did not demonstrate a positive Probe- to-Bone Test, and cultures of the wound were subsequently sent for evaluation. X-Ray: No bony destruction or periosteal reaction. WBCs: 12.2, Lactic Acid: 1.6 s/p Vancomycin 1 g, Cefepime 2 g, Morphine 4 mg, Zofran 4 mg, NS @ 30 ml/kg - Allergies/Adverse Reactions Allergies Allergy/AdvReac Type Severity Reaction Status Date / Time Penicillins Allergy Rash Verified 04/20/19 23:24 pneumococcal vaccine Allergy Verified 04/20/19 23:25 - Home Medications Medication Instructions Recorded Confirmed Type Metoprolol Succinate 100 mg PO BID 10/10/14 04/20/19 History Losartan Potassium 50 mg PO DAILY 01/01/17 04/20/19 History Amlodipine [Norvasc] 10 mg PO DAILY 10/22/18 04/20/19 History Potassium Chloride [K-Dur] 20 meq PO BID 01/05/19 04/20/19 History Tamsulosin HCl [Flomax] 0.4 mg PO BID 01/05/19 04/20/19 History Cyclobenzaprine [Flexeril] 10 mg PO TID 04/20/19 04/20/19 History HYDROcodone/Acetaminophen [[place] 1 each PO Q6HR PRN 04/20/19 04/20/19 History 7.5-325 Tablet] - History PMHx: Recurrent Nephrolithiasis, Hereditary Spherocytosis, HTN, LBP PSHx: Cholecystectomy, Splenectomy, Multiple Stents / Procedures FHx: Patient is adopted - Father has Hereditary Spherocytosis 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 Denies x3. Code Status: Full - Review of Systems General: reports: fever/chills Respiratory: denies: shortness of breath Gastrointestinal: reports: abdominal pain. denies: nausea, vomiting, diarrhea, constipation Skin: reports: lesions Musculoskeletal: reports: pain, swelling. denies: tenderness, arthritis/ arthralgias Neurological: denies: numbness, syncope, weakness - Vital signs BP: [178/108] HR: [102] RR: [20] Tmax: [98.2] Pox: [98]% on [Room Air] Wt: [ 104 kg] - Physical Exam Constitutional: NAD, awake, alert and oriented, well developed HEENT: normocephalic and atraumatic, PERRLA, conjunctiva clear, no scleral icterus, grossly normal vision, grossly normal hearing, normal nasal mucosa, MMM , oropharynx clear, good dention Neck: supple, FROM, trachea midline, no LAD Chest: no-tender to palpation, no lesions Heart: normal S1/S2, no murmurs/rubs/gallops, pulses present, no edema -Heart: Tachycardia Lungs: CTAB, no respiratory distress, good air movement, no rales/rhonchi, no wheezing, no retractions Abdomen: soft, non-tender, bowel sounds present, no masses/distention, no hernias -Abdomen: Multiple surgical scars noted Musculoskeletal: normal structure, normal tone, ROM grossly normal Neurological: no focal deficit, normal sensation Skin: no jaundice -Skin: Patient had a ~2cm incision on the doral aspect of his right foot with associated erythema and edema that did not extend up the leg. There was minimal bleeding noted, with mild TTP around the incision site. Patient demonstrated FROM, with sensation intact and no evidence of neurovascular compromise. Heme/Lymphatic: no unusual bruising or bleeding, no purpura, no petechia, no LAD Psychiatric: normal mood and affect, good judgment and insight, intact recent and remote memory FMR H&P: Results - Labs Result Diagrams: 04/21/19 04:26 04/21/19 04:26 Lab results: WBC 12.2 thou/uL (4.8-10.8) H 04/20/19 16:13 Hgb 14.5 g/dL (14.0-18.0) 04/20/19 16:13 Hct 39.7 % (42.0-52.0) L 04/20/19 16:13 MCV 91.6 fL (78.0-98.0) 04/20/19 16:13 Plt Count 501 thou/uL (130-400) H 04/20/19 16:13 Neutrophils % 62.7 % (42.0-75.0) 04/20/19 16:13 Sodium 141 mmol/L (136-145) 04/20/19 16:13 Potassium 3.2 mmol/L (3.5-5.1) L 04/20/19 16:13 Chloride 105 mmol/L (98-107) 04/20/19 16:13 Carbon Dioxide 25 mmol/L (22-29) 04/20/19 16:13 BUN 18 mg/dL (8.9-20.6) 04/20/19 16:13 Creatinine 1.24 mg/dL (0.7-1.3) 04/20/19 16:13 Glucose 111 mg/dL (70-105) H 04/20/19 16:13 Lactic Acid 1.6 mmol/L (0.5-2.2) 04/20/19 16:13 Calcium 9.7 mg/dL (7.8-10.44) 04/20/19 16:13 Total Bilirubin 0.9 mg/dL (0.2-1.2) 04/20/19 16:13 AST 17 U/L (5-34) 04/20/19 16:13 ALT 20 U/L (8-55) 04/20/19 16:13 Alkaline Phosphatase 113 U/L (40-110) H 04/20/19 16:13 Serum Total Protein 8.3 g/dL (6.0-8.3) 04/20/19 16:13 Albumin 4.5 g/dL (3.5-5.0) 04/20/19 16:13 Urine Ketones Negative mg/dL (Negative) 04/20/19 16:24 Urine Blood Trace (Negative) A 04/20/19 16:24 Urine Nitrite Negative (Negative) 04/20/19 16:24 Ur Leukocyte Esterase Negative Brent/uL (Negative) 04/20/19 16:24 Urine RBC 4-6 HPF (0-3) A 04/20/19 16:24 Urine WBC 4-6 HPF (0-3) A 04/20/19 16:24 Ur Squamous Epith Cells None Seen HPF (0-3) 04/20/19 16:24 Urine Bacteria None Seen HPF (None Seen) 04/20/19 16:24 - EKG Interpretation EKG: Sinus Tachycardia - Radiology Interpretation Other Status: report reviewed by me (See ED Course) FMR H&P: A/P - Problem List (1) Sepsis due to cellulitis Current Visit: Yes Status: Acute Code(s): L03.90 - CELLULITIS, UNSPECIFIED; A41.9 - SEPSIS, UNSPECIFIED ORGANISM (2) History of nephrolithiasis Current Visit: No Status: Acute Code(s): Z87.442 - PERSONAL HISTORY OF URINARY CALCULI (3) Hypertension Current Visit: No Status: Chronic Code(s): I10 - ESSENTIAL (PRIMARY) HYPERTENSION (4) Low back pain Current Visit: No Status: Chronic Code(s): M54.5 - LOW BACK PAIN (5) Hereditary spherocytosis Current Visit: Yes Status: Acute Code(s): D58.0 - HEREDITARY SPHEROCYTOSIS - Plan Patient is a 43 y/o male with a PMH significant for Hereditary Spherocytosis and recurrent Nephrolithiasis who presents to the ED for evaluation of right foot pain. 1. Sepsis 2/2 Cellulitis (RLE) -Failed outpatient PO Bactrim since 04/16 -s/p I&D in the ED - Wound Cultures: Pending -s/p fluid resuscitation and Vancomycin, Cefepime in ED - will continue -Tachycardic w/ elevated WBCs (12.2) -Lactic Acid: 1.6 -X-Ray (RLE): NAF -BCx: Pending -ESR: Pending -HgA1C: Pending - r/o Diabetic Foot Ulcer -Plan to tailor ABx regimen following Wound Culture results 2. History of Nephrolithiasis -Patient was recently treated in the ED and thinks that he may be passing another stone at present -UA: Consistent with previous presentation - +RBCs and +WBCs -UCx: Pending -Will ensure adequate hydration as per above -Will continue home [place] regimen with Morphine 2 mg PRN for pain -Renal US: Pending (Patient was told to avoid additional CT ABDs by Urology) 3. HTN -Patient was hypertensive in ED - states that he did not takes his antihypertensive regimen today -Continue home medication regimen 4. LBP -Continue home medication regimen 5. Hereditary Spherocytosis -s/p Splenectomy - may complicate #1 due to impaired immune function -Continue to monitor PCP: CC Code: Full Diet: HH w/ Low Sodium IVF: LR @ 125 ml/hr Activity: Ad jeffrey VTE PPx: SCDs - Niya Score:2 Dispo: Patient is currently stable and admitted to the Medical Floor for Sepsis 2/2 Cellulitis. Continue IVF and IV ABx as per above and await culture results in order to tailor ABx regimen. Manage other chronic medical conditions and ensure that patient does not have gross urinary obstruction that may complicate clinic picture. Expected LOS > 48H. FMR H&P: Upper Level - Plan Date/Time: 04/20/191915 PCP: [facility] HPI: This is a 43 yo M being admitted for treatment of failed outpatient treatment cellulitis. Pertinent PMH includes hereditary spherocytosis, HTN, obesity, and recurrent nephrolithiasis. He comes in today for worsening redness and pain affecting R foot. He came into ED 2 days ago for R flank pain and R foot redness was noted incidentally and he was started on Bactrim. Today in the ED the Right foot was incised and drained, probe to bone was negative. At time of exam patient states pain is his foot is almost gone since getting lidocaine for the I&D . He states he has L flank pain that feels like when he is passing a stone. Sharp, LLQ, burning with urination. He states he has noted some blood in the urine. He does have some nausea but is still tolerating PO. REVIEW OF SYSTEMS: Gen: no fever, chills, or sweats Neuro: mild headache Eyes: no visual changes ENT: no hearing changes, no sore throat, no congestion Resp: denies cough, SOB Card: denies CP, palpitations GI: see hpi Skin: see hpi PHYSICAL EXAMINATION: General: NAD, alert and oriented x3 Neck: Supple. Full ROM. Heart/Cardiovascular System: RRR, Cap refill < 3 seconds, no rub, no murmur Lungs/Respiratory System: CTA-B, no resp distress Abdomen/Gastro-Intestinal System: no abdominal tenderness, normal bowel sounds, positive L CVA tenderness Extremities: Warm extremities. No cyanosis or edema. See photo, 5cm x 5cm area of erythema on dorsum of R foot, 2 cm incision s/p I&D, probe to bone negative, sensation and pulses intact Neuro: No gross deficits appreciated. CN 2-12 grossly intact Psychiatry: Awake, Alert and cooperative with exam Skin: No lesions, rashes, or ulcers Musculoskeletal: Full ROM A/P: # Cellulitus failed outpt treatment, sepsis - Vancomycin, wound/blood cultures - Still tachycardic at 30mg/kg bolus in ED, cont fluids, abx - LA 1.6, WBC 12.2 - Foot x-ray no sign of osseseus changes - Patient denies DM, check A1C, if positive add flaggyl for diabetic foot infection # possible recurrent Nephrolithiasis, Pyelonephritis - Cont cefepime for now, check urine cx, consider URO consult if positive - UA minimal WBC, RBC but patient says he has burning - Renal US to eval for hydronephrosis, Dr. Nunez has told him he does not need repetitive CT imaging, last stent November per patietn - CT on 04/18 showed bilateral non-obstructing calculi, chronic - Pain Control # HTN - has not taken home meds since last night, start here, titrate up as needed - add PRN - Cr at baseline 1.24 # Hypo K - replete # Hereditary Spherocytosis - Hgb 14.5, hx of splenectomy Fluids: LR 125ml/hr Code status: full PPx: SCDs, NIYA 2 Dispo: Inpt pending results of wound/blood cultures to guide abx therapy Addendum - Attending - Attending Attestation Date/Time: 04/21/19 [id number] I personally evaluated the patient and discussed the management with Dr. Wall and Evert. I agree with the History, Examination, Assessment and Plan documented above with any addition or exceptions noted below. Antibiotics. Unsure why packing wasn't performed. Pain control. Await cultures.
[2019-04-20] MEDS ORDERED: Potassium Chloride 20 MEQ TAB PO SCH (20:30)
[2019-04-20] MEDS ORDERED: Famotidine 20 MG TAB PO SCH ×2 (21:10→22:30)
[2019-04-20] MEDS ORDERED: Acetaminophen 325 MG TAB PO PRN (21:10)
[2019-04-20] MEDS: HYDROcodone/Acetaminophen 7.5/325 mg Tablet PO PRN (22:00)
[2019-04-20 22:11] LABS: Hemoglobin A1c 4.9 % (4.0-6.0)
[2019-04-20] MEDS: Lactated Ringer's 1,000 ML IV SCH (22:17)
[2019-04-20] MEDS: hydrALAZINE 10 MG TAB PO SCH (22:20)
[2019-04-20] MEDS: Ondansetron ODT 4 MG TAB PO PRN (22:40)
[2019-04-20] MEDS: Morphine 2 MG/ML SYRINGE SLOW IVP PRN (23:18)
[2019-04-20 23:33] VITALS: BMI 31.0
[2019-04-21] MEDS: hydrALAZINE 10 MG TAB PO SCH ×6 (00:27→20:44)
[2019-04-21] MEDS: Morphine 2 MG/ML SYRINGE SLOW IVP PRN ×4 (04:43→20:43)
[2019-04-21 04:46] LABS: #Eosinphils 0.4 thou/uL (0.0-0.7); #Lymphocytes 3.4 thou/uL (1.20-3.40); #Monocytes 1.9 thou/uL (0.11-0.59); #Neutrophils 7.7 thou/uL (1.40-6.50); %Basophils 0.1 % (0.0-1.0); %Eosinophils 2.8 % (0.0-10.0); %Lymphocytes 25.2 % (21.0-51.0); %Monocytes 13.9 % (0.0-10.0); Hemoglobin 13.1 g/dL (14.0-18.0); Mean Corpuscular HGB CONC 36.8 g/dL (32.0-36.0); Mean Corpuscular Volume 92.4 fL (78.0-98.0); Mean Platelet Volume 8.3 fL (7.4-10.4); Platelet Count 449 thou/uL (130-400); RBC Distribution Width 12.2 % (11.5-14.5); Red Blood Cell (RBC) Count 3.85 mill/uL (4.70-6.10); White Blood Cell (WBC) Count 13.3 thou/uL (4.8-10.8)
[2019-04-21] MEDS ORDERED: Cefepime 2 GM in Sodium Chloride 0.9% 100 ML IVPB SCH (05:00)
[2019-04-21 05:03] LABS: ALT (SGPT) 17 U/L (8-55); AST (SGOT) 15 U/L (5-34); Albumin 3.9 g/dL (3.5-5.0); Alkaline Phosphatase 96 U/L (40-110); Anion Gap 11 mmol/L (10-20); BUN (Urea Nitrogen) 16 mg/dL (8.9-20.6); Calc. Creatinine Clearance 121 mL/min (70-130); Calcium 8.8 mg/dL (7.8-10.44); Carbon Dioxide 24 mmol/L (22-29); Chloride 108 mmol/L (98-107); Estimated GFR-MDRD 77; Globulin 3.2 g/dL (2.4-3.5); Glucose 98 mg/dL (70-105); Potassium 3.6 mmol/L (3.5-5.1); Protein, Total 7.1 g/dL (6.0-8.3); Sodium 139 mmol/L (136-145)
[2019-04-21] MEDS: Lactated Ringer's 1,000 ML IV SCH (06:07)
[2019-04-21] MEDS: HYDROcodone/Acetaminophen 7.5/325 mg Tablet PO PRN ×3 (06:09→18:24)
--- NOTE | 2019-04-21 07:06 | PDOC.FM ---
- Subjective Subjective: Doing well this morning, no acute events overnight. States pain and erythema have decreased since being on IV abx. Does not recall specific trauma but states they do have a new cat at home and she could have scratched him. Mild lower abd pain which he thinks could be passing of stone. Denies any fever/ chills, n/v, CP, SOB. Tolerating PO well. Eager to ambulate this AM. NO concerns. - Objective MAR Reviewed: Yes Vital Signs & Weight: Vital Signs (12 hours) Temp Pulse Resp BP BP Pulse Ox 04/21/19 06:09 99 175/107 H 04/21/19 04:44 99 185/110 H 04/21/19 00:27 102 H 155/96 H 04/20/19 22:20 192/109 H 04/20/19 20:50 98.3 F 103 H 16 192/109 H 100 Weight Weight 95.254 kg I&O: 04/19/19 04/20/19 04/21/19 06:59 06:59 06:59 Intake Total 960 Output Total 950 Balance 10 Result Diagrams: 04/21/19 04:26 04/21/19 04:26 Phys Exam - Physical Examination Constitutional: NAD (resting comfortably in bed, good spirits) HEENT: moist MMs Neck: supple Respiratory: no wheezing, no rales, no rhonchi, clear to auscultation bilateral Cardiovascular: RRR, no significant murmur, no rub Gastrointestinal: soft, no distention, positive bowel sounds Mildly TTP over LLQ Neurological: moves all 4 limbs Psychiatric: normal affect, A&O x 3 Deviation from normal: RLE cellulitis, dressing in place, erythema decreased from margins -: moderate TTP but decreased, good sensation, mobile toes, swelling decreased Dx/Plan (1) Hereditary spherocytosis Code(s): D58.0 - HEREDITARY SPHEROCYTOSIS Status: Acute (2) Sepsis due to cellulitis Code(s): L03.90 - CELLULITIS, UNSPECIFIED; A41.9 - SEPSIS, UNSPECIFIED ORGANISM Status: Acute (3) History of nephrolithiasis Code(s): Z87.442 - PERSONAL HISTORY OF URINARY CALCULI Status: Acute (4) Hypertension Code(s): I10 - ESSENTIAL (PRIMARY) HYPERTENSION Status: Chronic - Plan Plan: Patient is a 43 y/o male with a PMH significant for Hereditary Spherocytosis and recurrent Nephrolithiasis who presents to the ED for evaluation of right foot pain found to have RLE cellulitis #Sepsis 2/2 Cellulitis (RLE) -No known trauma or injury. Initially tachy with elevated WBC. LA 1.6. -Failed outpatient PO Bactrim since 04/16 -s/p I&D in the ED - Wound Gram stain GPC, WCx and BCx Pending -s/p fluid resuscitation and Vancomycin, Cefepime in ED - will continue and tailor abx appropriately -X-Ray (RLE): NAF -No h/o DM, A1C 4 - Wound care consulted #History of Nephrolithiasis -Patient was recently treated in the ED and thinks that he may be passing another stone at present -UA: Consistent with previous presentation - +RBCs and +WBCs. UCx pending. -Encourage PO intake, will d/c IVF 2/2 HTN and adequate PO -Continue home [place] regimen with Morphine 2 mg PRN for pain -Renal US: Pending #HTN -Elevated to SBP 190s, will restart home regime this AM with prn's, cont to monitor and adjust as needed #Hereditary Spherocytosis -s/p Splenectomy - may complicate #1 due to impaired immune function -Continue to monitor PCP: CC Code: Full Diet: HH w/ Low Sodium IVF: SL Activity: Ad jeffrey VTE PPx: SCDs - Sarah Score:2 Dispo: Stable, admitted for Sepsis 2/2 RLE Cellulitis. Cont IV ABx as per above and await culture to tailor ABx regimen. Expected LOS > 48H. Addendum - Attending - Attending Attestation Date/Time: 04/21/19 [id number] I personally evaluated the patient and discussed the management with Dr. Hernandez. I agree with the History, Examination, Assessment and Plan documented above with any addition or exceptions noted below. Growing staph. Await sensitivities.
[2019-04-21] MEDS: Cyclobenzaprine 10 MG TAB PO SCH ×3 (09:00→20:43)
[2019-04-21] MEDS: Potassium Chloride 20 MEQ TAB PO SCH ×3 (09:00→20:43)
--- NOTE | 2019-04-21 09:03 | ULT ---
RENAL ULTRASOUND: HISTORY: Kidney stones. TECHNIQUE: Real-time imaging of the right and left kidneys was performed. FINDINGS: The right kidney measures 11.3 cm in size and the left kidney 11.1 cm in size. No signs of cyst, mass or obstruction. There are echogenic foci in both kidneys, which appear to represent nonobstructing c alculi. The bladder region appears unremarkable. Bilateral ureteral jets are identified. IMPRESSION: Small echogenic foci in both kidneys, suspicious for some small nonobstructing stones. POS: JOHAN
[2019-04-21] MEDS: Losartan 25 MG TAB PO SCH (09:48)
[2019-04-21] MEDS: Famotidine 20 MG TAB PO SCH ×2 (09:48→20:43)
[2019-04-21] MEDS: Amlodipine 10 MG TAB PO SCH (09:49)
[2019-04-21] MEDS: Tamsulosin HCl 0.4 MG CAP PO SCH ×2 (09:52→20:43)
[2019-04-21] MEDS: Ondansetron ODT 4 MG TAB PO PRN (09:58)
[2019-04-21] MEDS: Vancomycin 1.5 GRAM/300 ML BAG 1.5 GM in Premix Bag 1 BAG IVPB SCH ×2 (10:00→20:44)
[2019-04-22] MEDS: Morphine 2 MG/ML SYRINGE SLOW IVP PRN ×3 (01:03→07:48)
[2019-04-22] MEDS: hydrALAZINE 10 MG TAB PO SCH ×3 (01:04→09:45)
[2019-04-22] MEDS: HYDROcodone/Acetaminophen 7.5/325 mg Tablet PO PRN ×3 (03:46→16:18)
[2019-04-22 04:38] LABS: #Basophils 0.1 thou/uL (0.0-0.2); #Eosinphils 0.6 thou/uL (0.0-0.7); #Lymphocytes 2.9 thou/uL (1.20-3.40); #Monocytes 1.6 thou/uL (0.11-0.59); #Neutrophils 5.7 thou/uL (1.40-6.50); %Basophils 0.8 % (0.0-1.0); %Eosinophils 5.8 % (0.0-10.0); %Lymphocytes 26.7 % (21.0-51.0); %Monocytes 14.7 % (0.0-10.0); %Neutrophils 52.1 % (42.0-75.0); Hemoglobin 12.3 g/dL (14.0-18.0); Mean Corpuscular HGB CONC 35.7 g/dL (32.0-36.0); Mean Corpuscular Hemoglobin 32.9 pg (27.0-31.0); Mean Corpuscular Volume 92.2 fL (78.0-98.0); Platelet Count 453 thou/uL (130-400); Red Blood Cell (RBC) Count 3.73 mill/uL (4.70-6.10)
--- NOTE | 2019-04-22 05:34 | PDOC.FM ---
- Subjective Subjective: He says he is still having some pain in his foot, but it is much improved this morning. He says he is eating and sleeping well. - Objective MAR Reviewed: Yes Vital Signs & Weight: Vital Signs (12 hours) Temp Pulse Resp BP BP Pulse Ox 04/22/19 03:45 90 134/75 04/22/19 01:04 89 160/73 H 04/21/19 20:44 91 133/89 04/21/19 19:36 98.6 F 91 20 133/89 99 Weight Weight 95.254 kg I&O: 04/20/19 04/21/19 04/22/19 06:59 06:59 06:59 Intake Total 960 1300 Output Total 950 1450 Balance 10 -150 Result Diagrams: 04/22/19 04:24 04/22/19 08:23 Phys Exam - Physical Examination Constitutional: NAD HEENT: PERRLA, moist MMs Neck: supple, full ROM Respiratory: clear to auscultation bilateral Cardiovascular: RRR, no significant murmur Gastrointestinal: soft, non-tender, positive bowel sounds Musculoskeletal: pulses present Swellin gof RLE Neurological: normal sensation, moves all 4 limbs Psychiatric: normal affect Deviation from normal: Erythema is improved from initial pictures Dx/Plan (1) Sepsis due to cellulitis Code(s): L03.90 - CELLULITIS, UNSPECIFIED; A41.9 - SEPSIS, UNSPECIFIED ORGANISM Status: Acute (2) Hypertension Code(s): I10 - ESSENTIAL (PRIMARY) HYPERTENSION Status: Chronic (3) Nephrolithiasis Status: Acute (4) Hereditary spherocytosis Code(s): D58.0 - HEREDITARY SPHEROCYTOSIS Status: Acute - Plan Plan: Patient is a 43 y/o male with a PMH significant for Hereditary Spherocytosis and recurrent Nephrolithiasis who presents to the ED for evaluation of right foot pain found to have RLE cellulitis 1. Sepsis 2/2 Cellulitis (RLE) * No known trauma or injury. Initially tachy with elevated WBC. LA 1.6. * WBC: 11 today * Failed outpatient PO Bactrim since 04/16 * s/p I&D in the ED - Wound Gram stain GPC, * WCx: MRSA -Susceptibles back will transition to PO today * BCx: Negative * s/p fluid resuscitation and Vancomycin, Cefepime in ED - Currently on Vanc * X-Ray (RLE): NAF * No h/o DM, A1C 4 * Wound care consulted 2. HTN * Elevated to SBP 190s initially, much improved today * will restart home regime this AM with prn's * cont to monitor and adjust as needed 3. History of Nephrolithiasis * Patient was recently treated in the ED and thinks that he may be passing another stone at present * UA: Consistent with previous presentation - +RBCs and +WBCs. UCx pending * Encourage PO intake, will d/c IVF 2/2 HTN and adequate PO * Continue home [place] regimen with Morphine 2 mg PRN for pain * Renal US: Small echogenic foci in both kidneys, suspicious for some small non- obstructing stones 4. Hereditary Spherocytosis * s/p Splenectomy - may complicate #1 due to impaired immune function * Continue to monitor PCP: CC Code: Full Diet: HH w/ Low Sodium IVF: SL Activity: Ad jeffrey VTE PPx: SCDs - Sarah Score:2 Dispo: Stable, admitted for Sepsis 2/2 RLE Cellulitis. Will switch to PO antibiotics today and consider d/c after monitoring on PO antibiotics. Expected LOS > 48H. Addendum - Attending - Attending Attestation Date/Time: 04/22/19 2226 I personally evaluated the patient and discussed the management with Dr. Hernandez I agree with the History, Examination, Assessment and Plan documented above with any addition or exceptions noted below. cellulitis improving. Switch to PO doxy. BP low this morning due to scheduled q4hr hydralazine. D/c hydralazine and monitor BP. If improves this afternoon, will d/c home. will need close outpatient follow up for titration of antihypertensives.
[2019-04-22 07:41] VITALS: TEMP 97.4
[2019-04-22] MEDS: Potassium Chloride 20 MEQ TAB PO SCH ×2 (09:00→09:45)
[2019-04-22 09:19] LABS: Anion Gap 14 mmol/L (10-20); BUN (Urea Nitrogen) 15 mg/dL (8.9-20.6); Calc. Creatinine Clearance 114 mL/min (70-130); Calcium 9.3 mg/dL (7.8-10.44); Carbon Dioxide 21 mmol/L (22-29); Chloride 108 mmol/L (98-107); Estimated GFR-MDRD 72; Glucose 107 mg/dL (70-105); Sodium 139 mmol/L (136-145)
[2019-04-22] MEDS: Amlodipine 10 MG TAB PO SCH (09:45)
[2019-04-22] MEDS: Famotidine 20 MG TAB PO SCH (09:45)
[2019-04-22] MEDS: Losartan 25 MG TAB PO SCH (09:45)
[2019-04-22] MEDS: Vancomycin 1.5 GRAM/300 ML BAG 1.5 GM in Premix Bag 1 BAG IVPB SCH (09:45)
[2019-04-22] MEDS: Tamsulosin HCl 0.4 MG CAP PO SCH (09:45)
[2019-04-22] MEDS: Cyclobenzaprine 10 MG TAB PO SCH ×2 (09:45→15:05)
[2019-04-22 15:44] VITALS: BP 126/77
[2019-04-22] MEDS ORDERED: Doxycycline 100 MG CAP PO SCH (21:00)
--- NOTE | 2019-04-24 04:19 | DIS ---
DATE OF ADMISSION: 04/20/2019 DATE OF DISCHARGE: 04/22/2019 RESIDENT: Derian Hernandez MD ADMITTING ATTENDING: Gal Jorge MD DISCHARGE ATTENDING: Federico Connelly MD CONSULTS: None. PROCEDURES: Foot x-ray on 04/20 showed no fracture dislocation identified. No bony destruction or periosteal reaction is identified. There is a small plantar calcaneal spur. Renal ultrasound on 04/21 shows small echogenic foci in both kidneys suspicious for some small non-obstructing stones. PRIMARY DIAGNOSES: Sepsis due to cellulitis, hypertension, and nephrolithiasis. SECONDARY DIAGNOSIS: Hereditary spherocytosis. DISCHARGE MEDICATIONS: Doxycycline 100 mg p.o. b.i.d. Continue home medications. vancomycin and morphine. HISTORY OF PRESENT ILLNESS: The patient is a 43-year-old male with past medical history significant for hereditary spherocytosis treated via splenectomy and recurrent nephrolithiasis who presented to the ED for worsening foot pain. The patient was seen in the ED on 04/16 for recurrent nephrolithiasis, at which time, he was evaluated for small wound on the dorsal aspect of his right foot. He was started on a regimen of p.o. Bactrim, but states that the wound had gotten progressively larger, more erythematous, and more painful since then. He denies any known inciting event, history of MRSA infection, or frequent skin infections, history of diabetes, or a medication regimen that includes known immunomodulating agents. The patient states that he often walks around barefoot at home but has not had any difficulty with ambulation since he was previously evaluated. He admits subjective fevers and chills, but states that his temperature has not never risen above 100 degrees Fahrenheit. He denies nausea, vomiting, abdominal pain, numbness, syncopal episodes, obvious streaking, or additional skin infections, not currently visible. 1. Sepsis secondary to cellulitis. Wound culture was obtained that showed MRSA. No history of diabetes. The patient was treated with vancomycin. White blood count was initially elevated as well as lactic acid, but trended down. He outpatient p.o. Bactrim, so he was discharged with doxycycline. Blood cultures remained negative throughout hospital stay. X-ray of the right lower extremity as noted above. 2. Hypertension. 3. Elevated systolics into the 190s but improved through hospital stay. Restarted home medication regimen. 4. History of nephrolithiasis. The patient was recently treated in the ED and think he may be passing another stone during initial presentation. Overall exam improved from initial admission. Renal ultrasound as noted above. UA had positive red blood cells and white blood cells. Culture was negative. Continue home [place]. Morphine was discontinued before discharge. 5. Hereditary spherocytosis, status post splenectomy. DISCHARGE INSTRUCTIONS: 1. Location: Home. 2. Diet: Heart healthy low-sodium. 3. Activity: As tolerated. 4. Follow up with PCP, Glynn Westfall in 7 days. Job ID: [id number]
== END 2019-04-22 19:45 | disposition home or self-care (01) | DRG 872 ==
LOC: ERS 15:56 → OBSVTOIN 20:44 → ONC 20:44
PROVIDERS: ADMIT Emergency Medicine; ATTEND Emergency Medicine
DX: A41.02 Sepsis due to Methicillin resistant Staphylococcus aureus (principal); L03.115 Cellulitis of right lower limb; I10 Essential (primary) hypertension; N20.0 Calculus of kidney; D58.0 Hereditary spherocytosis; M54.5 Low back pain; E87.6 Hypokalemia; Z87.442 Personal history of urinary calculi; Z88.0 Allergy status to penicillin; Z88.7 Allergy status to serum and vaccine; Z79.899 Other long term (current) drug therapy; Z90.49 Acquired absence of other specified parts of digestive tract
CPT/HCPCS: 36415; 76770; 80048; 80053; 80176; 80202; 81003; 81015; 83036; 83605; 85025; 85652; 87040; 87070; 87077; 87086; 87186; 87205; 93005; J0692; J2001; J2270; J2405; J3370; J3490; Q0162

== ENCOUNTER 2020-02-21 20:56 | Inpatient (IN) | payer OTHER, SELFPAY ==
[~2020-02-21 20:56] MED LIST changes: -ISOVUE-370 76%-LOCM 1 ML ONE; +Iopamidol-370 76% 500 ML 1 ML ONE
[2020-02-21] MEDS ORDERED: Morphine 4 MG/ML VIAL ONE (21:11)
[2020-02-21] MEDS ORDERED: Ondansetron PF 4 MG/2 ML Vial ONE ×2 (21:14→21:19)
[2020-02-21 21:21] LABS: #Basophils 0.1 thou/uL (0.0-0.2); #Eosinphils 0.1 thou/uL (0.0-0.7); #Monocytes 1.8 thou/uL (0.11-0.59); #Neutrophils 7.4 thou/uL (1.40-6.50); %Basophils 0.4 % (0.0-1.0); %Eosinophils 0.4 % (0.0-10.0); %Lymphocytes 30.2 % (21.0-51.0); %Monocytes 13.3 % (0.0-10.0); %Neutrophils 55.7 % (42.0-75.0); Hemoglobin 9.7 g/dL (14.0-18.0); Mean Corpuscular HGB CONC 34.8 g/dL (32.0-36.0); Mean Corpuscular Hemoglobin 28.5 pg (27.0-31.0); Mean Corpuscular Volume 82.1 fL (78.0-98.0); Mean Platelet Volume 7.4 fL (7.4-10.4); Platelet Count 611 thou/uL (130-400); RBC Distribution Width 15.6 % (11.5-14.5); Red Blood Cell (RBC) Count 3.41 mill/uL (4.70-6.10); White Blood Cell (WBC) Count 13.3 thou/uL (4.8-10.8)
[2020-02-21 21:46] LABS: ALT (SGPT) 14 U/L (8-55); AST (SGOT) 15 U/L (5-34); Albumin 4.9 g/dL (3.5-5.0); Alkaline Phosphatase 101 U/L (40-110); Anion Gap 18 mmol/L (10-20); BUN (Urea Nitrogen) 26 mg/dL (8.9-20.6); Bilirubin, Total 0.7 mg/dL (0.2-1.2); Calc. Creatinine Clearance 0 mL/min (70-130); Calcium 10.2 mg/dL (7.8-10.44); Carbon Dioxide 24 mmol/L (22-29); Chloride 105 mmol/L (98-107); Globulin 3.5 g/dL (2.4-3.5); Glucose 114 mg/dL (70-105); Lipase 16 U/L (8-78); Protein, Total 8.4 g/dL (6.0-8.3); Sodium 144 mmol/L (136-145)
[2020-02-21 21:51] LABS: Potassium 2.5 mmol/L (3.5-5.1)
--- NOTE | 2020-02-21 21:52 | RAD ---
Chest one view HISTORY: Chest pain. COMPARISON: 07/19/2017. FINDINGS: Cardiac silhouette is magnified by projection. Pulmonary vasculature is unremarkable. Mediastinum is midline. No lobar consolidation or evidence of pneumothorax. Calcified nodule at the l eft lateral lung base is stable. Metallic clips overlie the left upper quadrant the abdomen. IMPRESSION : No active cardiopulmonary abnormalities are demonstrated.
[2020-02-21] MEDS ORDERED: Potassium Chloride 20 MEQ TAB ONE (21:54)
[2020-02-21 22:08] LABS: CKMB 0.8 ng/mL (0-6.6)
--- NOTE | 2020-02-21 22:43 | CT ---
CT arteriogram chest with IV contrast and 3-D imaging CT arteriogram abdomen with IV contrast and 3-D imaging HISTORY: Chest and abdomen pain with radiation to the back. COMPARISON: 04/18/2019. FINDINGS: There is good contrast opacification of the aorta with bovine origin of the great vessels a t the aortic arch. No evidence of dissection or leak. Normal caliber. Small hiatal hernia. Partially calcified hamartoma at the left posterolateral lung base is stable. The gallbladder and spleen are surgically absent. Soft tissue density nodules adjacent to the medial aspect of the gastric fundus, 1.3 and 1.2 cm greatest diameters, may represent stable lymph nodes or small splenules. Each renal collecting system is decompressed. Innumerable calcifications within each renal collecting system are again demonstrated, measuring up to 0.7 cm in each kidney. A 0.3 cm calcification within the left lower retroperitoneal is favored to represent a phlebolith just outside the course of the left ureter, as it is stable. The pelvis was not imaged. IMPRESSION : No acute vascular abnormalities are demonstrated. Extensive nonobstructing bilateral renal calculi, stable. Chronic-type findings are stable.
[2020-02-21] MEDS ORDERED: Magnesium 2 GM/50 ML BAG (IN WATER) ONE (23:49)
[2020-02-22] MEDS ORDERED: Senokot S 8.6-50 MG TAB PO PRN (00:15)
[2020-02-22] MEDS ORDERED: Acetaminophen 325 MG TAB PO PRN (00:15)
[2020-02-22] MEDS ORDERED: HYDROcodone/Acetaminophen 5/325 mg Tablet PO PRN ×2 (00:15)
[2020-02-22] MEDS ORDERED: Electrolyte Replacement Protocol 1 EACH FS SCH (00:52)
[2020-02-22 01:20] LABS: Troponin I 0.042 ng/mL (< 0.028)
[2020-02-22] MEDS: Morphine 2 MG/ML VIAL SLOW IVP PRN ×5 (03:01→22:37)
[2020-02-22] MEDS: Sodium Chloride 0.9% 1,000 ML IV SCH ×2 (04:19→18:07)
--- NOTE | 2020-02-22 04:47 | HP ---
CHIEF COMPLAINT: Chest pain, that radiates to his back. PRIMARY CARE PHYSICIAN: Dr. Glynn Westfall. HISTORY OF PRESENT ILLNESS: Mr. Steiner is a 44-year-old man, who reported to the emergency room today for evaluation of sharp chest pain, which he reports is substernal, which radiates to his back. He reports that it started 2 to 3 hours before he came to the ER, reports that he was just sitting watching TV when it started. He reports that he had similar pain when he was in [place] and was evaluated there and had a cardiac cath. He reports that he had some blockage, but he said that the case investigator there stated that it would be difficult to remove and so he had no stents, and he was placed on Imdur and Ranexa for chest pain at that time. He denies any history of [place] or a dissection. He has significant past medical history for chronic kidney disease, CHF, hyperlipidemia, hypertension. He has multiple stones in bilateral kidneys, has issues with hypokalemia, spherocytosis, and he had a heart cath here in 2014. In the emergency room, today, his initial troponin was slightly elevated at 0.039 and subsequent one is 0.042. His potassium was low at 2.5, BUN 26, creatinine is 1.85, glucose 114, serum protein 8.4. White blood cell count 13.3, hemoglobin 9.7, hematocrit 28, platelet count is 611. He reports that his kidney function fluctuates and that he had stents removed bilaterally [address] Nunez is his normal urologist. He reports that this chest pain started substernally, moved to his back. He reports that he was diaphoretic, also quite nauseated, and he reports that this is similar to how he felt when he underwent the cardiac cath in [place]. He denies having a case investigator here and denies that he has seen one since the hospitalization in [facility]. The patient had a dissection protocol CT scan while in the emergency room, which showed no acute vascular abnormalities, extensive nonobstructing bilateral renal calculi, chronic stable findings. He has soft tissue densities medial aspect of the gastric fundus 1.3 and 1.2. He will be admitted to the telemetry unit for further workup. REVIEW OF SYSTEMS: The patient denies chills, reports subjective fever. He denies any vision changes. Denies any upper respiratory symptoms. Does report chest pain that radiates to his back. Reports some dyspnea, sharp chest pain, sharp back pain. Reports some nausea, vomiting, epigastric abdominal pain. He denies any dysuria, hematuria. He reports that his urine looks "pretty good." All other systems are reviewed and are negative unless mentioned above or in the HPI. PAST MEDICAL HISTORY: Congestive heart failure, hyperlipidemia, high cholesterol, hypertension, kidney stones, hereditary spherocytosis, chronic kidney disease, hypertension. SURGICAL HISTORY: Cholecystectomy, splenectomy, tonsillectomy. He has had lymph nodes removed from his right groin; has had 12 kidney stents, lithotripsy, and a cardiac cath about 5 months ago. PSYCHIATRIC HISTORY: Anxiety, depression. SOCIAL HISTORY: Lives at home with his family. He denies any alcohol or drug use. No smoking history. KNOWN ALLERGIES: Penicillins, pneumococcal vaccine. CURRENT MEDICATIONS: He takes: 1. Lipitor 40 mg p.o. twice a day. 2. Lexapro 10 mg p.o. daily. 3. Flexeril 10 mg p.o. once a day. 4. p.o. daily. 5. Imdur 30 mg p.o. once a day. 6. Protonix 40 mg p.o. b.i.d. 7. Flomax 0.4 mg p.o. b.i.d. He also says he takes Ranexa 500 mg p.o. b.i.d. PHYSICAL EXAMINATION: VITAL SIGNS: Blood pressure 141/95, pulse is 91, respiratory rate is 16, pO2 sats are 99% on room air. CONSTITUTIONAL: The patient is nontoxic appearing. He is alert and oriented to person, place, and time. HEENT: Head is atraumatic and normocephalic. Eyes, pupils are equally reactive to light. Ocular muscles are intact. ENT: Mouth exam is normal. Mucous membranes are moist. NECK: Normal range of motion. Trachea is midline. RESPIRATORY/CHEST: Breath sounds are clear. Chest expansion is equal. CARDIOVASCULAR: Slightly tachycardic. No extra heart sounds. ABDOMEN: He has some mild point tenderness epigastric. No rebound. No guarding. BACK: Normal range of motion. Normal inspection. Upper extremity, normal range of motion. Motor strength is normal. Lower extremity, normal range of motion. Motor strength is normal. Pedal pulses are symmetric. NEURO: The patient is oriented to person, place, and time. Speech is normal. SKIN: Warm and dry. Normal in color. LABORATORY DATA: EKG interpretation in the ER, sinus tach at 109, no acute ischemic or nonspecific T-wave changes, normal axis. PLAN/ASSESSMENT: 1. Chest pain. We will get an echocardiogram. Trend troponins. Ask for the records from [facility]. Ask Dr. Mills to consult. Order fasting lipids, TSH. 2. History of hypertension. Restart his home medications once reconciled. 3. History of chronic kidney disease. This appears acute on chronic. He had a CT dissection protocol. We will gently hydrate. He has, of note, a record on his ER, post check record, that he should not undergo CT scan with contrast as he has had multiple CT scans in the past from the kidney stones, so we will hydrate him and recheck his kidney function in the a.m. We will hold any nephrotoxic medications. 4. History of coronary artery disease, is on Imdur and Ranexa. We can restart these once they are reconciled. We would appreciate cardiology input. 5. History of hyperlipidemia. We will restart his Lipitor once reconciled. 6. Hypokalemia. He was started on potassium replacement in the ER. We will continue this. We will recheck lab values in the morning. 7. Case discussed with Dr. Fallon. 8. Hospital course dependent on clinical findings. Job ID: [id number]
[2020-02-22 05:14] VITALS: BMI 29.6
[2020-02-22 05:39] LABS: Troponin I 0.036 ng/mL (< 0.028)
[2020-02-22 05:44] LABS: Bacteria/HPF None Seen HPF (None Seen); Bilirubin Negative (Negative); Blood, Urine Trace (Negative); Clarity Clear (Clear); Glucose, Urine (Dipstick) Normal (Negative); Ketone, Urine Negative (Negative); Leukocyte Negative Leu/uL (Negative); Nitrite Negative (Negative); Protein, Urine (Dipstick) 20 mg/dL (Neg-Trace); RBC/HPF 0-3 HPF (0-3); Squamous Epithelial None Seen HPF (0-3); Urobilinogen Normal mg/dL (Less than 2); WBC/HPF 0-3 HPF (0-3)
[2020-02-22 05:52] LABS: Medtox Reader # READER 1; Opiate Screen Detected (NotDetected); THC/Cannabinoid Screen Not Detected (NotDetected)
[2020-02-22 05:53] LABS: Amphetamine Not Detected (NotDetected); Barbiturates Screen Not Detected (NotDetected); Benzodiazepine Screen Not Detected (NotDetected); Cocaine Metabolite Screen Not Detected (NotDetected); Medtox Control Line Valid? VALID (VALID); Methadone Not Detected (NotDetected); Methamphetamine Not Detected (NotDetected); Oxycodone Screen Not Detected (NotDetected); Phencyclidine (PCP) Not Detected (NotDetected); Tricyclic Screen Not Detected (NotDetected); Urine Culture Reflex No No
[2020-02-22 05:54] LABS: ALT (SGPT) 12 U/L (8-55); AST (SGOT) 15 U/L (5-34); Alkaline Phosphatase 85 U/L (40-110); Anion Gap 14 mmol/L (10-20); BUN (Urea Nitrogen) 22 mg/dL (8.9-20.6); Bilirubin, Total 0.5 mg/dL (0.2-1.2); Calc. Creatinine Clearance 89 mL/min (70-130); Calcium 8.4 mg/dL (7.8-10.44); Carbon Dioxide 24 mmol/L (22-29); Cardiac Risk 2.9 (Less than 4.5); Chloride 105 mmol/L (98-107); Cholesterol 103 mg/dl (< 200 Desired); Glucose 102 mg/dL (70-105); HDL Cholesterol 36 mg/dL (>60 Neg Risk); LDL Cholesterol, Calculated 49 mg/dL; Magnesium 2.2 mg/dL (1.6-2.6); Potassium 2.6 mmol/L (3.5-5.1); Sodium 140 mmol/L (136-145); Triglycerides 89 mg/dL (Less than 150)
[2020-02-22 06:06] LABS: Hemoglobin 7.9 g/dL (14.0-18.0); Hypochromia SLIGHT = 6-15 cells (100X) (0-5/hpf); Lymphocytes 24 % (21-51); MDiff Complete? YES; Mean Corpuscular HGB CONC 32.5 g/dL (32.0-36.0); Mean Corpuscular Hemoglobin 27.2 pg (27.0-31.0); Mean Corpuscular Volume 83.8 fL (78.0-98.0); Mean Platelet Volume 7.7 fL (7.4-10.4); Monocytes 15 % (0-10); Neutrophil 61 % (42-75); Platelet Count 565 thou/uL (130-400); Platelet Morphology Comment Appears Adequate; RBC Distribution Width 15.7 % (11.5-14.5); Red Blood Cell (RBC) Count 2.89 mill/uL (4.70-6.10); White Blood Cell (WBC) Count 10.1 thou/uL (4.8-10.8)
[2020-02-22] MEDS ORDERED: Potassium Chloride 20 MEQ TAB PO SCH (06:45)
[2020-02-22] MEDS ORDERED: Potassium Chloride 40 MEQ in Sodium Chloride 0.9% 250 ML 250 ML IVPB SCH (06:45)
[2020-02-22] MEDS: Potassium Chloride 20 MEQ TAB PO SCH ×2 (08:12→17:36)
[2020-02-22] MEDS: Enoxaparin Sodium 40 MG/0.4 ML SYRINGE SC SCH (08:13)
[2020-02-22] MEDS ORDERED: Famotidine 20 MG TAB PO SCH (09:00)
[2020-02-22 10:01] LABS: SARS-CoV-2 MS2 Positive; SARS-CoV-2 N Gene Negative; SARS-CoV-2 S Gene Negative; SARS-CoV-2 by NAA Not Detected (NotDetected); SARS-CoV-2 orf1ab Negative
[2020-02-22] MEDS ORDERED: Scopolamine 1.5 mg/72 hour Patch TD SCH (15:00)
[2020-02-22] MEDS: Pancrelipase DR 12,000 1 CAP PO SCH (18:06)
--- NOTE | 2020-02-22 18:17 | CON ---
DATE OF CONSULTATION: 02/22/2020 INDICATION FOR CONSULTATION: A 44-year-old patient with known coronary artery disease, admitted with chest pain. HISTORY OF PRESENT ILLNESS: This is a very unfortunate 44-year-old gentleman, who was seen in the emergency room complaining of sharp pain, which usually starts in his back and radiates to the chest area, was admitted for further evaluation. He has had a cardiac catheterization just recently up in [place] within the last 6 months and was told that he had some 50% to 60% blockage in one vessel and 40% blockage in another vessel. He was advised not to undergo any intervention at that time. Obviously, if the vessels are less than 70%, there will be no indication to proceed with an angioplasty or stent placement or bypass surgery. He was started on Lipitor and aspirin. Since that time, he has stopped the aspirin due to history of gastric ulcers and bleeding, and indeed, his hemoglobin has dropped since admission from 9.7 to 7.9. He has had significant problems with bleeding in the past and has required transfusions, and he notes that he was having blood in his stools, so he stopped taking the aspirin. He has been continuing to take the Lipitor. He also stated to me that he had a cardiac catheterization performed here several years ago, but I do not see any indication that was performed. He did have stress testing I believe, that maybe what he was referring to. He significant problems with his kidneys. He has had significant nephrolithiasis. He has recently undergone I believe stent placements for the renal pelvic area for nephrolithiasis. He has had frequent urinary tract infections occurring every 2 to 3 weeks he says. He has also had low potassium, and indeed, his potassium was 2.6 on arrival here and this was being replaced. He says he has lost about 35 pounds in the last three weeks due to not eating because he has abdominal pain about half an hour after he eats. He describes the pain in the back as being sharp and radiating to the chest, which then became pressure type sensation, and it usually only occurs when he is sitting associated with exertion. He also said he has had a CT scan performed, which shows some type of spots on his pancreas. He does have a history of hereditary spherocytosis, has undergone a splenectomy. He has also had a cholecystectomy. He did have cardiac enzymes obtained, which were indeterminate, most likely do not indicate myocardial infarction, most likely type 2 AK. The troponin was 0.039, increased up to 0.042, and has been decreased back down to 0.036. He is anemic. His hemoglobin has dropped from 9.7 to 7.9 since being admitted. His TSH level also was low at 0.1. His EKG did not show any acute changes to indicate the ischemia and given the fact that he had a recent cardiac catheterization with no significant stenosis, one would not suspect that to increase over few months period of time. PAST MEDICAL HISTORY: Significant for hereditary spherocytosis, splenectomy, cholecystectomy. He has had a history of dyslipidemia. He has hypertension, nephrolithiasis. He has chronic kidney disease. He has had a cholecystectomy as well as the splenectomy and tonsillectomy. He has had exploration of lymph nodes and removal of lymph nodes from the right groin. He has had multiple stents placed in the renal areas and he has also had lithotripsy. He has a history of anxiety and depression. SOCIAL HISTORY: His recently . He has no alcohol or tobacco abuse. He has children, who are alive and well, they are adults. ALLERGIES: HE IS ALLERGIC TO PENICILLIN, PNEUMOCOCCAL VACCINES. MEDICATIONS: Prior to admission include; 1. Lipitor, he says 40 mg twice a day. This would not be necessary to have a twice a day medication for such as Lipitor. 2. Lexapro 10 mg a day. 3. Flexeril 10 mg a day. 4. Imdur 30 mg a day. 5. Protonix 40 mg b.i.d. 6. Flomax 0.4 mg b.i.d. 7. Ranexa 500 mg b.i.d. I do not see that he is on a beta gurdeep, but that may be one of the medications that was not listed. He should be on a beta gurdeep, given his history of heart disease or coronary artery disease. I would request his records from [place] to see whether or not we have any other medications or information that can be obtained, as far as the cardiac catheterization was concerned to ensure that he did not have any stenosis more than 50% to 60%. REVIEW OF SYSTEMS: He mainly complains of what is noted in history of present illness, pain in his back radiating to the chest area. He does appear to be somewhat anxious. He has lost 35 pounds in three weeks. He says he has not been eating due to the pain. He denies any other significant complaints on the review of systems. PHYSICAL EXAMINATION: GENERAL: Reveals a well-developed, well-nourished gentleman. At this time, he does not appear to be in any distress. VITAL SIGNS: Blood pressure is 131/83. He is afebrile. His heart rate is in the 80s, shows a sinus rhythm. Respiratory rate 12, and 100% O2 saturation on room air. HEENT: Shows the head to be normocephalic and atraumatic. Carotid pulses are present. There were no bruits. CHEST: Clear to auscultation. There were no rales, rhonchi, or wheezing. CARDIOVASCULAR: Reveals a regular rate and rhythm. Normal S1 and S2. There is no S3 or S4. There were no significant murmurs, heaves, thrills, bruits, or rubs noted. ABDOMEN: Shows some epigastric tenderness, but there are no palpable masses noted. EXTREMITIES: Show no clubbing, cyanosis, or edema. Pedal pulses are present. NEUROLOGIC: The patient appears to be fully intact. LABORATORY DATA: Show a sodium of 140; potassium was 2.6, has been replaced; BUN was 22; creatinine 1.31; blood sugar is 102. WBC was 10.1, hemoglobin was 9.7 and dropped down to 7.9, hematocrit was 28 and dropped down to 24, platelet count was 565,000. Cardiac enzymes are noted above. EKG shows a normal sinus rhythm. There were no acute changes noted. He just has some nonspecific ST-segment changes, mainly in the inferior leads, otherwise unremarkable. IMPRESSION: 1. A 44-year-old gentleman with chest pain with a recent cardiac catheterization showing no significant obstructive coronary artery disease. We will need to obtain these records from [place] to determine the actual true findings on the cardiac catheterization. At this time, I would continue his medications, uncertain as to why he is not on a beta gurdeep. We would initiate a beta gurdeep in this patient with coronary artery disease if he is able to tolerate it and we would try to aim for heart rate between 50 to 60 and also systolic blood pressure between 120 to 130. He says he is unable to take aspirin or anti-platelet medications due to his gastric problems with bleeding. 2. Anemia, which he is complaining of some discomfort, which may be repeat bleeding from his ulcerations or gastric ulcers. 3. Hereditary spherocytosis. His platelet count is 565,000. This will be dealt with by the primary care service or perhaps even Hematology. 4. History of hypertension. At this time, the blood pressure is under reasonable control, but again, we will add beta-blockers to decrease incidence of cardiac events. We are more than happy to continue to follow the patient with you, but certainly obtaining the records would be of significant benefit in this patient who has coronary artery disease to define the anatomy. 5. Hypercholesterolemia. We will continue on the Lipitor. We will change that to once a day and we would certainly add this to his list of medications since he has not been placed back on his medicines since being admitted to the hospital. His hospital medications include potassium, Pepcid, lipase/protease, Protonix, KCl, he has been given that for replacement. He is on scopolamine patch, hydrocodone, Tylenol, p.r.n. morphine. We will need to reinstate his Lipitor as well as starting him on metoprolol. Job ID: [id number]
[2020-02-22] MEDS: Atorvastatin Calcium 40 MG TAB PO SCH (20:30)
[2020-02-22] MEDS ORDERED: FLU VACC QS2020-21(6MOS UP)/PF 60 MCG/0.5 ML SYRINGE IM ONE (21:00)
[2020-02-23] MEDS: HYDROcodone/Acetaminophen 10/325 mg Tablet PO PRN ×2 (00:29→11:43)
[2020-02-23] MEDS: Morphine 2 MG/ML VIAL SLOW IVP PRN ×4 (02:58→20:16)
[2020-02-23 04:52] LABS: Hemoglobin 7.2 g/dL (14.0-18.0)
[2020-02-23] MEDS: Sodium Chloride 0.9% 1,000 ML IV SCH ×3 (06:20→20:21)
[2020-02-23] MEDS: Enoxaparin Sodium 40 MG/0.4 ML SYRINGE SC SCH (08:15)
[2020-02-23] MEDS: Pancrelipase DR 12,000 1 CAP PO SCH ×3 (08:15→17:36)
[2020-02-23] MEDS ORDERED: Potassium Chloride 20 MEQ TAB PO SCH (10:00)
[2020-02-23 11:04] LABS: Anion Gap 14 mmol/L (10-20); BUN (Urea Nitrogen) 13 mg/dL (8.9-20.6); Calc. Creatinine Clearance 123 mL/min (70-130); Calcium 8.3 mg/dL (7.8-10.44); Carbon Dioxide 23 mmol/L (22-29); Chloride 108 mmol/L (98-107); Glucose 94 mg/dL (70-105); Potassium 3.5 mmol/L (3.5-5.1); Sodium 141 mmol/L (136-145)
--- NOTE | 2020-02-23 13:55 | PDOC.HOSPP ---
- Subjective Encounter Date: 02/23/20 Subjective: The patient is complaining of epigastric pain. He still having diarrhea which he describes as being dark. - Objective Vital Signs & Weight: Vital Signs (12 hours) Temp Pulse Resp BP Pulse Ox 02/23/20 11:30 98.7 F 80 16 119/77 100 02/23/20 07:15 98.2 F 73 16 135/77 99 02/23/20 03:02 98.3 F 76 20 132/72 100 Weight Admit Weight 194 lb 7 oz Weight 207 lb I&O: 02/22/20 02/23/20 02/24/20 06:59 06:59 06:59 Intake Total 1745 Output Total 750 Balance 995 Result Diagrams: 02/23/20 04:14 02/23/20 10:23 Hospitalist ROS - Medication Medications: Active Medications Generic Name Dose Route Start Last Admin Trade Name Freq PRN Reason Stop Dose Admin Hydrocodone Bitart/Acetaminophen 1 tab 02/22/20 02:20 02/23/20 11:43 Hydrocodone/Acetaminophen 10/325 Mg Tablet PO 1 tab Q4H PRN Administration Moderate to Severe Pain (6-10) Lipase/Protease/Amylase 1 cap 02/22/20 17:00 02/23/20 11:[address] 12,000 1 Cap PO 1 cap TID-WM ROXANA Administration Atorvastatin Calcium 40 mg 02/22/20 21:00 02/22/20 20:30 Atorvastatin Calcium 40 Mg Tab PO 40 mg HS ROXANA Administration Enoxaparin Sodium 40 mg 02/22/20 09:00 02/23/20 08:15 Enoxaparin Sodium 40 Mg/0.4 Ml Syringe SC 40 mg 0900 ROXANA Administration Sodium Chloride 1,000 mls @ 75 mls/hr 02/22/20 02:00 02/23/20 06:20 Normal Saline 0.9% IV 1,000 mls .[id number] ROXANA Administration Metoprolol Succinate 50 mg 02/23/20 09:00 02/23/20 08:15 Metoprolol Succinate Xl 50 Mg Tab PO 50 mg DAILY ROXANA Administration Morphine Sulfate 2 mg 02/22/20 02:19 02/23/20 08:15 Morphine 2 Mg/Ml Vial SLOW IVP 2 mg Q4H PRN Administration Breakthrough Pain Pantoprazole Sodium 40 mg 02/22/20 21:00 02/23/20 08:15 Pantoprazole 40 Mg Tab PO 40 mg BID ROXANA Administration Scopolamine 1.5 mg 02/22/20 15:00 02/22/20 15:20 Scopolamine 1.5 Mg/72 Hour Patch TD 1.5 mg Q3D ROXANA Administration - Exam General Appearance: awake alert ENT: normocephalic atraumatic Neck: supple, no JVD Respiratory: normal chest expansion, no tachypnea Gastrointestinal: soft Extremities: no cyanosis, no clubbing Hosp A/P (1) Peptic ulcer disease Code(s): K27.9 - PEPTIC ULC, SITE UNSP, UNSP AC OR CHR, W/O HEMOR OR PERF Status: Acute (2) Epigastric pain Code(s): R10.13 - EPIGASTRIC PAIN Status: Acute (3) Anemia due to acute blood loss Code(s): D62 - ACUTE POSTHEMORRHAGIC ANEMIA Status: Acute (4) Hereditary spherocytosis Code(s): D58.0 - HEREDITARY SPHEROCYTOSIS Status: Acute (5) Hypertension Code(s): I10 - ESSENTIAL (PRIMARY) HYPERTENSION Status: Chronic - Plan The patient is still having epigastric pain. His hemoglobin level is trending down. Diarrhea and dark stools were reported. Patient does have history of peptic ulcer disease. Bleeding peptic ulcer complicating his chronic anemia due to spherocytosis could be present. Consulted GI. Continue PPI and monitor his hemoglobin and hematocrit levels.
--- NOTE | 2020-02-23 16:38 | PDOC.CPN ---
- Subjective Date: 02/23/20 Time: 11:30 Interval history: Patient still c/o same epigastric pain, was given pain medication for this and states that it was helpful. His hemoglobin is still trending down, 7.2 today. Denies chest pain or shortness of breath today. - Review of Systems General: denies: fever/chills, weight/appetite/sleep changes, night sweats, fatigue Respiratory: denies: cough, congestion, shortness of breath, exercise intolerance Cardiovascular: denies: chest pain, palpitation, edema, paroxysmal nocturnal dyspnea, orthopnea Gastrointestinal: reports: diarrhea, abd pain Musculoskeletal: denies: pain, tenderness, stiffness, swelling, a rthritis/arthralgias Neurological: denies: numbness, syncope, seizure, weakness - Objective Allergies/Adverse Reactions: Allergies Allergy/AdvReac Type Severity Reaction Status Date / Time Penicillins Allergy Rash Verified 06/03/19 07:30 pneumococcal vaccine Allergy Verified 06/03/19 07:30 Visit Medications: Current Medications Acetaminophen (Acetaminophen 325 Mg Tab) 650 mg PO Q4H PRN PRN Reason: Headache/Fever/Mild Pain (1-3) Hydrocodone Bitart/Acetaminophen (Hydrocodone/Acetaminophen 10/325 Mg Tablet) 1 tab PO Q4H PRN PRN Reason: Moderate to Severe Pain (6-10) Last Admin: 02/23/20 11:43 Dose: 1 tab Documented by: Lipase/Protease/Amylase (Pancrelipase Dr 12,000 1 Cap) 1 cap PO TID-WM [facility] Last Admin: 02/23/20 11:26 Dose: 1 cap Documented by: Atorvastatin Calcium (Atorvastatin Calcium 40 Mg Tab) 40 mg PO HS [facility] Last Admin: 02/22/20 20:30 Dose: 40 mg Documented by: Enoxaparin Sodium (Enoxaparin Sodium 40 Mg/0.4 Ml Syringe) 40 mg SC 0900 [facility] Last Admin: 02/23/20 08:15 Dose: 40 mg Documented by: Sodium Chloride (Normal Saline 0.9%) 1,000 mls @ 75 mls/hr IV .[id number] [facility] Last Admin: 02/23/20 06:20 Dose: 1,000 mls Documented by: Metoprolol Succinate (Metoprolol Succinate Xl 50 Mg Tab) 50 mg PO DAILY [facility] Last Admin: 02/23/20 08:15 Dose: 50 mg Documented by: Miscellaneous Medication (Electrolyte Replacement Protocol 1 Each) 1 each FS ASDIR [facility] Morphine Sulfate (Morphine 2 Mg/Ml Vial) 2 mg SLOW IVP Q4H PRN PRN Reason: Breakthrough Pain Last Admin: 02/23/20 14:38 Dose: 2 mg Documented by: Pantoprazole Sodium (Pantoprazole 40 Mg Tab) 40 mg PO BID [facility] Last Admin: 02/23/20 08:15 Dose: 40 mg Documented by: Polyethylene Glycol/Electrolytes (Golytely 4,000 Ml Bottle) 4,000 ml PO 1700 [facility] Stop: 02/23/20 23:59 Scopolamine (Scopolamine 1.5 Mg/72 Hour Patch) 1.5 mg TD Q3D [facility] Last Admin: 02/22/20 15:20 Dose: 1.5 mg Documented by: Vital Signs & Weight: Vital Signs Temp Pulse Resp BP Pulse Ox 02/23/20 15:30 98.5 F 73 16 142/84 H 99 02/23/20 11:30 98.7 F 80 16 119/77 100 02/23/20 07:15 98.2 F 73 16 135/77 99 Admit Weight 194 lb 7 oz Weight 207 lb - Physical Exam General: alert & oriented x3 Neck: no JVD/HJR, no bruit Cardiac: regular rate and rhythm, no murmur, S1/S2 Lungs: clear to auscultation, normal breath sounds, no wheeze, rales, rhonchi Neuro: grossly intact, motor function intact, sensory function intact Abdomen: active bowel sounds, soft Extremities: no cyanosis, no clubbing, no edema Skin: clear Musculoskeletal: no pain - Labs Result Diagrams: 02/23/20 04:14 02/23/20 10:23 Troponin/CKMB CK-MB (CK-2) 0.8 ng/mL (0-6.6) 02/21/20 21:14 Troponin I 0.036 ng/mL (< 0.028) H 02/22/20 04:16 - EKG Interpretation EKG Method: Telemetry EKG: sinus rhythm - Assessment/Plan Assessment/Plan: 1. Chest pain: he denies any chest pain today, his troponin has trended down to 0.036. We are waiting for his cardiac catheterization report and other cardiac history records from [place]. He was started on a beta gurdeep yesterday, his BP is well-controlled today. 2. Anemia: Hemoglobin continues to trend down, 7.2 today. 3. Hereditary spherocytosis: to be managed by primary care services. 4. History of hypertension: resonably controlled at this time, beta gurdeep started yesterday, we will continue to monitor. 5. Hypercholesterolemia: he has been started back on his Lipitor. We will continue current treatment plan until we receive his previous cardiology reports from [place], these have been requested. Pt. seen and eval. by me. I agree with the A/P by the [employer]. Chest clear. RRR. gjm C
[2020-02-23] MEDS ORDERED: GoLYTELY 4,000 ml Bottle PO SCH (17:00)
--- NOTE | 2020-02-23 17:18 | CON ---
DATE OF CONSULTATION: 02/23/2020 REASON FOR CONSULTATION: Chest pain/midepigastric abdominal pain, anemia with history of peptic ulcer disease, hematochezia. CONSULTING PROVIDER: Cayetano Jean MD HISTORY OF PRESENT ILLNESS: The patient is a 44-year-old male with past medical history of peptic ulcer disease, colonic polyps, hereditary spherocytosis, hyperlipidemia, hypertension, nephrolithiasis, chronic kidney disease, anxiety, depression, and coronary artery disease, initially presented with complaints of chest pain. He states that he was in his usual state of health until approximately 2 days ago when he began having increased mid back pain that then radiated to his chest with the chest pain characterized as a cramping type sensation, nonradiating except for to his back, located primarily at the xiphoid process, was constant with waxing/waning severity, and reached a severity of 10/10. The pain was worse with eating (both solids and liquids) and would occur within 20 to 30 minutes after he ate. It would also worsen with increased physical activity, twisting movements, and not having a bowel movement. This pain was better with actually having a bowel movement, walking around, and the administration of pain medications in the form of [place] as an outpatient. With the worsening of this chest pain, it then prompted him to seek healthcare assistance at the [facility] ER, especially since given his prior history of coronary artery disease and cardiac catheterization approximately 6 months ago showing luminal narrowing of one or more of his coronary arteries. On admission, he was noted to have a mildly decreased hemoglobin and hematocrit, but over the course of the last 24 to 48 hours, it has further decreased without any episodes of hematemesis, melena, or hematochezia. However, upon further examination of the patient, he states that he has had darker-colored stools for the last couple weeks, characterized as having approximately 2 to 6 semi-solid ([place] 6) stools with no difficulty with defecation, but darker in coloration (he described the stools more tarry when he had peptic ulcer disease approximately 2 to 3 months ago). He also describes intermittent hematochezia, characterized as bright red blood per rectum with blood seen on the toilet paper and in the toilet and blood mixed in with the stool rather than coating the stool. Concurrently, he also endorses a weight loss of 40 pounds over the last 2 weeks, presumably to increased chest pain, nausea, vomiting with some episodes of blood-tinged emesis, dysphagia characterized as the sensation that food getting stuck at the level of the sternal notch and in the lower chest, odynophagia when he does have the sensation that food is getting stuck in addition to lower abdominal pain that will occur within 30 to 45 minutes after eating. However, he does deny constipation at the current point in time. REVIEW OF SYSTEMS: A 10-category review of systems was obtained with all responses negative except for the pertinent positives as listed in HPI. PAST MEDICAL HISTORY: As per HPI. PAST SURGICAL HISTORY: 1. Cholecystectomy. 2. Splenectomy. 3. Tonsillectomy. 4. Lymph node excision from his right groin. 5. Placement of 12 kidney stents (presumably ureteral). 6. Nephrolithiasis lithotripsy. 7. Cardiac catheterization 5 months ago. 8. The patient also had EGD and colonoscopy in 2016 and more recently an upper endoscopy only 2 months ago in [place]. FAMILY HISTORY: The patient states that he was adopted, but does not know of any stated GI malignancies. SOCIAL HISTORY: Denies any tobacco, alcohol, or illicit drug use. OUTPATIENT MEDICATIONS: Reviewed. ALLERGIES: PENICILLIN AND THE PNEUMOCOCCAL VACCINE. PHYSICAL EXAMINATION: VITAL SIGNS: Temperature 98.5, pulse 73, blood pressure 142/84, respiratory rate 16, and saturating 99% on room air. GENERAL: The patient was lying in bed, in no acute distress. Alert and oriented x4. HEENT: Normocephalic and atraumatic. NECK: Supple. No JVD or scleral icterus noted. CARDIOVASCULAR: Regular rate and rhythm with no discernable murmurs, gallops, or rubs. RESPIRATORY: Clear to auscultation bilaterally with no discernable wheezes or rales. ABDOMEN: Normoactive bowel sounds. Soft, nondistended. Tenderness to palpation in all abdominal quadrants that could not be replicated with distraction. EXTREMITIES: No cyanosis, clubbing, or edema. LABORATORY DATA: CBC with a white blood cell count of 10.1, hemoglobin 7.2, hematocrit 22.2, and platelets 565. Chemistry with a sodium of 141, potassium 3.5, chloride 108, CO2 of 23, BUN 13, creatinine 1.01, glucose 94, AST 15, ALT 12, alkaline phosphatase 85, and total bilirubin 0.5. Drug abuse screen was positive for opiates only. IMAGING DATA: The patient underwent a CT scan of the chest and abdomen dissection protocol, which showed the presence of a small hiatal hernia as well as a partially calcified hamartoma in the left posterolateral lung base, but stable when compared to previous. The gallbladder and spleen are both surgically absent with soft tissue density nodules adjacent to the medial aspect of the gastric fundus and may represent stable lymph nodes or small splenules. Each renal collecting system is decompressed, but innumerable calcifications were seen in both renal collecting systems. Per my read, evaluation of the pancreas did not reveal any abnormalities. ASSESSMENT AND PLAN: The patient is a 44-year-old male with past medical history of peptic ulcer disease, colonic polyps, hereditary spherocytosis, hyperlipidemia, hypertension, nephrolithiasis, chronic kidney disease, anxiety, depression, and coronary artery disease, presenting with anemia with possible gastrointestinal origin in light of a history of peptic ulcer disease in addition to generalized abdominal pain and hematochezia/melena. 1. Midepigastric/chest pain. The patient initially presented for evaluation regarding complaints of chest pain where it started off as back pain, but then radiated to his midepigastric region, roughly located at the xiphoid process. He characterized this pain as a cramping type sensation and reaching a severity of 10/10. He has currently undergone a cardiac evaluation with the origin of his abdominal pain/chest pain not felt to be cardiac in origin at this time. However, given his history of peptic ulcer disease in the past with an esophagogastroduodenoscopy performed approximately 2 months ago in [place], it does raise concern for continued presence of these ulcers (the patient was never told what the etiology of these ulcers were). He has been taking proton pump inhibitors as an outpatient daily, which makes peptic ulcer disease less likely. Differential could include peptic ulcer disease, gastritis, esophagitis including eosinophilic esophagitis (seen on esophagogastroduodenoscopy in 2016), constipation, increased intraluminal gas, adhesive disease from multiple abdominal surgeries, and/or gastrointestinal neoplasm (much less likely). Recommendations: a. Would continue the patient on PPI 40 mg b.i.d. for the time being in light of possible peptic ulcer disease. b. Pain control per primary team. c. Would proceed with upper endoscopy for further evaluation tomorrow. d. Recommend stool studies for possible infectious etiology contributing to generalized abdominal pain. e. Would adhere to strict anti-reflux precautions while the patient is here as an inpatient. f. Could potentially consider placing the patient on oral fluticasone in light of his diagnosis of eosinophilic esophagitis from 2016. 2. Diarrhea/hematochezia: The patient is presenting with a concurrent diagnosis of diarrhea, having approximately 2 to 6 semi-solid bowel movements per day over the last week or so and having intermittent episodes of hematochezia, characterized as bright red blood per rectum with blood mixed in with the stool. Based on the colonoscopy from 2016 in our system, the patient did have a colonic polyp at that time. The polyp removed from the sigmoid colon at that time, but not retrieved. At this time, the patient's diarrhea could be multifactorial and that the patient has had recent healthcare exposure increasing his risk for things like Clostridium difficile; however, random biopsies of the colon were taken in 2016 presumably for the evaluation of microscopic colitis, raising the question for things like irritable bowel syndrome and inflammatory bowel disease (much less likely with inflammatory bowel disease). Recommendations: a. Would obtain infectious stool studies for evaluation of possible pathogen generating the patient's symptoms. b. If negative, would proceed with colonoscopy tomorrow for intraluminal evaluation for determining etiology of his diarrhea and/or hematochezia. We will continue to follow. Please call with any questions. Job ID: [id number]
[2020-02-23] MEDS: Atorvastatin Calcium 40 MG TAB PO SCH (20:16)
[2020-02-24] MEDS: Morphine 2 MG/ML VIAL SLOW IVP PRN ×5 (00:45→20:29)
[2020-02-24 05:08] LABS: Anion Gap 14 mmol/L (10-20); BUN (Urea Nitrogen) 8 mg/dL (8.9-20.6); Calc. Creatinine Clearance 124 mL/min (70-130); Calcium 8.1 mg/dL (7.8-10.44); Carbon Dioxide 20 mmol/L (22-29); Chloride 110 mmol/L (98-107); Glucose 95 mg/dL (70-105); Potassium 3.3 mmol/L (3.5-5.1); Sodium 141 mmol/L (136-145)
[2020-02-24 05:22] LABS: Eosinophils 3 % (0-10); Hemoglobin 7.5 g/dL (14.0-18.0); Hypochromia SLIGHT = 6-15 cells (100X) (0-5/hpf); Lymphocytes 23 % (21-51); MDiff Complete? YES; Mean Corpuscular Hemoglobin 26.6 pg (27.0-31.0); Mean Corpuscular Volume 83.1 fL (78.0-98.0); Mean Platelet Volume 7.8 fL (7.4-10.4); Monocytes 14 % (0-10); Neutrophil 60 % (42-75); Platelet Count 504 thou/uL (130-400); Platelet Morphology Comment Appears Increased; RBC Distribution Width 15.5 % (11.5-14.5); Red Blood Cell (RBC) Count 2.83 mill/uL (4.70-6.10); White Blood Cell (WBC) Count 8.4 thou/uL (4.8-10.8)
[2020-02-24] MEDS ORDERED: Potassium Chloride 20 MEQ TAB PO SCH (06:30)
[2020-02-24] MEDS: Pancrelipase DR 12,000 1 CAP PO SCH ×3 (08:14→16:00)
[2020-02-24] MEDS: Enoxaparin Sodium 40 MG/0.4 ML SYRINGE SC SCH (08:15)
[2020-02-24] MEDS ORDERED: PROPOFOL 200 MG/20 ML VIAL ONE (10:08)
[2020-02-24] MEDS ORDERED: Lidocaine 1% PF 5 ML VIAL ONE (10:08)
--- NOTE | 2020-02-24 11:05 | OP ---
DATE OF PROCEDURE: 02/24/2020 CENTRAL SUPPLY TECH SURGEON: None. PROCEDURES PERFORMED: 1. Esophagogastroduodenoscopy with biopsies. 2. Colonoscopy, aborted due to poor bowel preparation. MEDICATIONS: See Anesthesia record. FINDINGS: After discussion of the risks, benefits, and alternatives of the procedure, informed consent was obtained and witnessed. Pre-endoscopic cardiopulmonary examination was satisfactory. Time-out was performed before sedation was achieved. Sedation was achieved with Anesthesia assistance in the endoscopy unit. A Pentax adult upper endoscope was placed into the oropharynx and passed through the cricopharyngeus under direct visualization. The esophageal mucosa appeared normal throughout. The endoscope was advanced into the stomach. Forward and retroflexed views of the entire gastric mucosa were obtained. There was no evidence of any old blood or active bleeding. In the gastric fundus, there were some patchy erythema and friability consistent with nonerosive gastritis. Biopsies were obtained from the gastric fundus, body, and antrum to rule out H pylori infection. The endoscope was then advanced to the pylorus. 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 I was unable to pass the endoscope beyond this area. However, I was able to visualize the proximal portion of the duodenal bulb through the stricture and there is a large deep, but clean based duodenal bulb ulcer very proximally within the duodenal bulb. There is no bleeding from this area. There is a lot of erythema and edema around this deep ulcer. I was unable to examine the duodenum any more distally to this due to the pyloric channel stricture even after downsizing the upper endoscope. I did not attempt to perform balloon dilation of the pyloric channel given its proximity to this deep duodenal bulb ulcer. The upper endoscope was completely withdrawn and the patient was repositioned. Digital rectal exam was performed. The patient still has some external hemorrhoidal skin tags. There is also some semisolid stool within the rectal vault. Indeed, when the Pentax adult colonoscope was inserted into the rectum, there was a large amount of solid and semisolid stool within the rectum. I gently tried to advance the scope into the sigmoid colon, but it was evident that there was more solid stool within the sigmoid colon and thus the procedure was aborted. I did retroflex the colonoscope within the rectum and there were small internal hemorrhoids. There was no blood within the colon. The colonoscope was completely withdrawn and the patient allowed to recover. The patient tolerated the procedure well. There were no immediate postprocedure complications. IMPRESSION: 1. Deep duodenal bulb ulcer on the anterior wall, clean based, nonbleeding. 2. Pyloric channel stenosis, unable to advance the upper endoscope into the duodenum. Dilation not attempted due to the proximity of the stenosis to deep duodenal bulb ulcer. 3. Mild gastritis in the gastric fundus. Gastric biopsies obtained to rule out Helicobacter pylori. 4. External hemorrhoidal skin tags. 5. Poor bowel preparation, with copious solid and semisolid stool in the rectum, therefore colonoscopy aborted. RECOMMENDATION: 1. Follow up pathology results on the gastric biopsies. If H pylori is present, treat with triple therapy and confirm eradication. 2. Twice daily PPI for at least 2 months. 3. Plan to repeat EGD in the outpatient setting at a two-month interval, to assess for ulcer healing. Consider pyloric dilation at that time. 4. Advance diet. 5. Follow up Clostridium difficile toxin result. Job ID: [id number]
--- NOTE | 2020-02-24 11:36 | PDOC.CPN ---
- Subjective Date: 02/24/20 Time: 08:50 Interval history: No overnight events, patient has remained in sinus rhythm with his heart rate well-controlled in the 80's. His stool sample did come back positive for C. Diff this morning. He does have upper and lower endoscopies scheduled for today with Dr. Bliss. He states that the same discomfort between his back and chest is still present but well controlled with pain medication. His hemoglobin still remains low. He may receive a blood transfusion today. - Review of Systems General: denies: fever/chills, weight/appetite/sleep changes, night sweats, fatigue Respiratory: denies: cough, congestion, shortness of breath, exercise intolerance Cardiovascular: reports: chest pain Gastrointestinal: reports: diarrhea, abd pain Musculoskeletal: denies: pain, tenderness, stiffness, swelling, arthritis/arthralgias Neurological: denies: numbness, syncope, seizure, weakness - Objective Allergies/Adverse Reactions: Allergies Allergy/AdvReac Type Severity Reaction Status Date / Time Penicillins Allergy Rash Verified 06/03/19 07:30 pneumococcal vaccine Allergy Verified 06/03/19 07:30 Visit Medications: Current Medications Acetaminophen (Acetaminophen 325 Mg Tab) 650 mg PO Q4H PRN PRN Reason: Headache/Fever/Mild Pain (1-3) Hydrocodone Bitart/Acetaminophen (Hydrocodone/Acetaminophen 10/325 Mg Tablet) 1 tab PO Q4H PRN PRN Reason: Moderate to Severe Pain (6-10) Last Admin: 02/23/20 11:43 Dose: 1 tab Documented by: Lipase/Protease/Amylase (Pancrelipase Dr 12,000 1 Cap) 1 cap PO TID-WM [facility] Last Admin: 02/24/20 08:14 Dose: 1 cap Documented by: Atorvastatin Calcium (Atorvastatin Calcium 40 Mg Tab) 40 mg PO HS [facility] Last Admin: 02/23/20 20:16 Dose: 40 mg Documented by: Enoxaparin Sodium (Enoxaparin Sodium 40 Mg/0.4 Ml Syringe) 40 mg SC 0900 [facility] Last Admin: 02/24/20 08:15 Dose: Not Given Documented by: Sodium Chloride (Normal Saline 0.9%) 1,000 mls @ 75 mls/hr IV .[id number] [facility] Last Admin: 02/23/20 20:21 Dose: 1,000 mls Documented by: Metoprolol Succinate (Metoprolol Succinate Xl 50 Mg Tab) 50 mg PO DAILY [facility] Last Admin: 02/24/20 08:14 Dose: 50 mg Documented by: Miscellaneous Medication (Electrolyte Replacement Protocol 1 Each) 1 each FS ASDIR [facility] Morphine Sulfate (Morphine 2 Mg/Ml Vial) 2 mg SLOW IVP Q4H PRN PRN Reason: Breakthrough Pain Last Admin: 02/24/20 04:58 Dose: 2 mg Documented by: Pantoprazole Sodium (Pantoprazole 40 Mg Tab) 40 mg PO BID [facility] Last Admin: 02/24/20 08:14 Dose: 40 mg Documented by: Scopolamine (Scopolamine 1.5 Mg/72 Hour Patch) 1.5 mg TD Q3D [facility] Last Admin: 02/22/20 15:20 Dose: 1.5 mg Documented by: Sodium Chloride (Flush - Normal Saline 10 Ml Syringe) 10 ml IVF Q12HR [facility] Last Admin: 02/24/20 08:15 Dose: 10 ml Documented by: Sodium Chloride (Flush - Normal Saline 10 Ml Syringe) 10 ml IVF PRN PRN PRN Reason: Saline Flush Vital Signs & Weight: Vital Signs Temp Pulse Resp BP Pulse Ox 02/24/20 08:30 98.5 F 68 16 124/85 98 02/24/20 03:31 98.3 F 76 16 139/79 99 02/24/20 00:00 72 131/84 Admit Weight 194 lb 7 oz Weight 203 lb 12.8 oz - Quality Measures Condition: Coronary Artery Disease CV meds: Beta Marleny: Yes, PA/ARB: Yes, Statin: Yes, ASA: No (Contraindicated d/t anemia ), Plavix/Effient/Brilinta: No, Anticoagulant: No - Medication Contraindications No Antithrombotic reason: Medical contraindication No Anticoagulant reason: Medical contraindication - Physical Exam General: no apparent distress HEENT: mucus membranes moist Neck: midline trachea, no JVD/HJR, no masses, no bruit Cardiac: regular rate and rhythm, no murmur Lungs: clear to auscultation, normal breath sounds, no wheeze, rales, rhonchi Neuro: grossly intact, motor function intact, sensory function intact Abdomen: active bowel sounds, tender Extremities: no cyanosis, no clubbing, no edema, 2+ Posterior Tibial, 2+ Dorsalis Pedus Skin: clear Musculoskeletal: normal range of motion, no pain - Labs Result Diagrams: 02/24/20 04:36 02/24/20 04:36 Troponin/CKMB CK-MB (CK-2) 0.8 ng/mL (0-6.6) 02/21/20 21:14 Troponin I 0.036 ng/mL (< 0.028) H 02/22/20 04:16 - EKG Interpretation EKG Method: Telemetry - Assessment/Plan Assessment/Plan: 1. Chest pain: he states that the same pain that radiates from his back to chest is still present intermittently, it is well-controlled with PRN pain medication, I do believe this is not cardiac in nature. He has had no EKG changes. He had a cardiac catheterization on 12/02/19 in [place]: this showed 1st marginal lesion is 50% stenosed, smaller OM1 disease and PCI would compromise larger Cx/OM2 vessel and would medically manage. RCA without significant disease. His home medications did include ARBS, as well as Ranexa and Isosorbide Mononitrate, we will re-start these home medications and continue to treat his coronary artery disease medically at this time. He is unable to take Aspirin d/t anemia. He is on a statin. 2. Anemia: Hemoglobin continues to trend down, 7.5 today, he will receive a blood transfusion today, upper & lower endoscopies scheduled for later today. His stool cultures did come back positive today for C. Diff, this will be managed by primary and GI services. 3. Hereditary spherocytosis: to be managed by primary care services. 4. History of hypertension: resonably controlled at this time, beta marleny started, and we will re-start home Losartan, we will continue to monitor. 5. Hypercholesterolemia: he has been started back on his Lipitor.
[2020-02-24] MEDS: Vancomycin HCl 25 MG/ML Oral PO SCH ×2 (17:38→23:56)
[2020-02-24] MEDS: HYDROcodone/Acetaminophen 10/325 mg Tablet PO PRN ×2 (17:49→22:01)
--- NOTE | 2020-02-24 18:04 | PDOC.HOSPP ---
- Subjective Encounter Date: 02/24/20 Subjective: The patient underwent evaluation with EGD today - Objective Vital Signs & Weight: Vital Signs (12 hours) Temp Pulse Pulse Resp BP BP Pulse Ox 02/24/20 15:02 98.9 F 82 18 127/76 98 02/24/20 14:27 98.7 F 80 14 139/78 02/24/20 14:12 98.7 F 82 20 129/75 02/24/20 11:10 97.4 F L 94 16 138/94 H 97 02/24/20 08:30 98.5 F 68 16 124/85 98 Weight Admit Weight 194 lb 7 oz Weight 203 lb 12.8 oz I&O: 02/23/20 02/24/20 02/25/20 06:59 06:59 06:59 Intake Total 1745 3060 0 Output Total 750 2125 Balance 995 935 0 Result Diagrams: 02/24/20 04:36 02/24/20 04:36 Hospitalist ROS - Medication Medications: Active Medications Generic Name Dose Route Start Last Admin Trade Name Freq PRN Reason Stop Dose Admin Hydrocodone Bitart/Acetaminophen 1 tab 02/22/20 02:20 02/24/20 17:49 Hydrocodone/Acetaminophen 10/325 Mg Tablet PO 1 tab Q4H PRN Administration Moderate to Severe Pain (6-10) Lipase/Protease/Amylase 1 cap 02/22/20 17:00 02/24/20 16:[address] 12,000 1 Cap PO 1 cap TID-WM [facility] Administration Atorvastatin Calcium 40 mg 02/22/20 21:00 02/23/20 20:16 Atorvastatin Calcium 40 Mg Tab PO 40 mg HS [facility] Administration Enoxaparin Sodium 40 mg 02/22/20 09:00 02/24/20 08:15 Enoxaparin Sodium 40 Mg/0.4 Ml Syringe SC Not Given 0900 [facility] Sodium Chloride 1,000 mls @ 75 mls/hr 02/22/20 02:00 02/23/20 20:21 Normal Saline 0.9% IV 1,000 mls .[id number] [facility] Administration Metoprolol Succinate 50 mg 02/23/20 09:00 02/24/20 08:14 Metoprolol Succinate Xl 50 Mg Tab PO 50 mg DAILY [facility] Administration Morphine Sulfate 2 mg 02/22/20 02:19 02/24/20 15:59 Morphine 2 Mg/Ml Vial SLOW IVP 2 mg Q4H PRN Administration Breakthrough Pain Pantoprazole Sodium 40 mg 02/22/20 21:00 02/24/20 08:14 Pantoprazole 40 Mg Tab PO 40 mg BID ROX[facility] Administration Scopolamine 1.5 mg 02/22/20 15:00 02/22/20 15:20 Scopolamine 1.5 Mg/72 Hour Patch TD 1.5 mg Q3D R[facility] Administration Sodium Chloride 10 ml 02/24/20 09:00 02/24/20 08:15 Flush - Normal Saline 10 Ml Syringe IVF 10 ml Q12HR [facility] Administration Vancomycin HCl 125 mg 02/24/20 18:00 02/24/20 17:38 Vancomycin Hcl 25 Mg/Ml Oral PO 125 mg Q6HR [facility] Administration Hosp A/P (1) Peptic ulcer disease Code(s): K27.9 - PEPTIC ULC, SITE UNSP, UNSP AC OR CHR, W/O HEMOR OR PERF Status: Acute (2) Epigastric pain Code(s): R10.13 - EPIGASTRIC PAIN Status: Acute (3) Anemia due to acute blood loss Code(s): D62 - ACUTE POSTHEMORRHAGIC ANEMIA Status: Acute (4) Hereditary spherocytosis Code(s): D58.0 - HEREDITARY SPHEROCYTOSIS Status: Acute (5) Hypertension Code(s): I10 - ESSENTIAL (PRIMARY) HYPERTENSION Status: Chronic - Plan Status post EGD showing deep duodenal ulcer and pyloric stenosis. Twice daily PPI was recommended in addition to outpatient follow-up with another endoscopy in 2 months to document the healing of the ulcer and to attempt dilatation of the pyloric region. Transfuse 1 unit of packed RBCs. Follow hemoglobin level tomorrow.
[2020-02-24] MEDS: Atorvastatin Calcium 40 MG TAB PO SCH (20:33)
[2020-02-24] MEDS: Sodium Chloride 0.9% 1,000 ML IV SCH (20:40)
[2020-02-24] MEDS: Nitroglycerin 0.4 MG TAB (25 Tab Bottle) SL PRN ×2 (22:00→22:05)
--- NOTE | 2020-02-24 22:22 | RAD ---
Exam: Chest one view HISTORY:Chest pain. Comparison: 02/21/2020 FINDINGS: Cardiac silhouette: Normal Aorta: Unremarkable Pulmonary vessels: Normal Costophrenic angles: Clear LUNGS: No masses or consolidation. Pneumothorax: None Osseous abnormalities: None IMPRESSION: No acute cardiopulmonary process. No significant interval change.
[2020-02-24 22:46] LABS: Lactic Acid 1.9 mmol/L (0.5-2.2)
[2020-02-24 22:59] LABS: Anion Gap 15 mmol/L (10-20); BUN (Urea Nitrogen) 7 mg/dL (8.9-20.6); Calc. Creatinine Clearance 118 mL/min (70-130); Carbon Dioxide 21 mmol/L (22-29); Chloride 111 mmol/L (98-107); Potassium 3.7 mmol/L (3.5-5.1); Sodium 143 mmol/L (136-145)
[2020-02-24 23:10] LABS: Calcium 8.1 mg/dL (7.8-10.44); Glucose 102 mg/dL (70-105)
[2020-02-25] MEDS: Morphine 2 MG/ML VIAL SLOW IVP PRN ×3 (00:19→09:01)
[2020-02-25] MEDS ORDERED: Magnesium 2 GM/50 ML 2 GM in Premix Bag 1 BAG IVPB SCH (01:30)
[2020-02-25 05:13] LABS: Anion Gap 12 mmol/L (10-20); BUN (Urea Nitrogen) 8 mg/dL (8.9-20.6); Calc. Creatinine Clearance 112 mL/min (70-130); Calcium 8.2 mg/dL (7.8-10.44); Carbon Dioxide 23 mmol/L (22-29); Chloride 109 mmol/L (98-107); Glucose 118 mg/dL (70-105); Potassium 3.6 mmol/L (3.5-5.1); Sodium 140 mmol/L (136-145)
[2020-02-25 05:42] LABS: Eosinophils 7 % (0-10); Hemoglobin 8.4 g/dL (14.0-18.0); Lymphocytes 39 % (21-51); MDiff Complete? YES; Mean Corpuscular HGB CONC 32.3 g/dL (32.0-36.0); Mean Corpuscular Hemoglobin 27.6 pg (27.0-31.0); Mean Corpuscular Volume 85.2 fL (78.0-98.0); Monocytes 16 % (0-10); Neutrophil 38 % (42-75); Platelet Count 478 thou/uL (130-400); Platelet Morphology Comment Appears Increased; RBC Distribution Width 15.4 % (11.5-14.5); Red Blood Cell (RBC) Count 3.05 mill/uL (4.70-6.10); White Blood Cell (WBC) Count 6.1 thou/uL (4.8-10.8)
[2020-02-25] MEDS: Vancomycin HCl 25 MG/ML Oral PO SCH ×2 (05:50→12:49)
[2020-02-25 08:12] VITALS: TEMP 98.6
[2020-02-25] MEDS: Pancrelipase DR 12,000 1 CAP PO SCH ×2 (08:59→12:48)
[2020-02-25] MEDS ORDERED: Amlodipine 5 MG TAB PO SCH (09:00)
[2020-02-25] MEDS ORDERED: Losartan 25 MG TAB PO SCH (09:00)
[2020-02-25] MEDS: Sodium Chloride 0.9% 1,000 ML IV SCH (09:03)
[2020-02-25] MEDS: Enoxaparin Sodium 40 MG/0.4 ML SYRINGE SC SCH (09:03)
--- NOTE | 2020-02-25 10:57 | OP ---
DATE OF PROCEDURE: 02/24/2020 ADDENDUM: INDICATIONS: 1. Acute on chronic anemia, suspect acute blood loss. 2. Epigastric pain. 3. History of peptic ulcer disease. 4. Diarrhea. Job ID: [id number]
[2020-02-25 12:04] VITALS: BP 133/79
[2020-02-25] MEDS: HYDROcodone/Acetaminophen 10/325 mg Tablet PO PRN (12:49)
--- NOTE | 2020-02-25 15:39 | PDOC.CPN ---
- Subjective Date: 02/25/20 Time: 12:30 Interval history: No over night events, patient states he did not have anymore episodes of chest pain over night. His heart rhythm has maintained in SR in the 60's-70's. He received 2 units of PRBC's yesterday, his hemoglobin is trending up. - Review of Systems General: denies: fever/chills, weight/appetite/sleep changes, night sweats, fatigue Respiratory: denies: cough, congestion, shortness of breath, exercise intolerance Cardiovascular: denies: chest pain, palpitation, edema, paroxysmal nocturnal dyspnea, orthopnea Gastrointestinal: denies: nausea, vomiting, diarrhea, constipation, abd pain, GI bleeding Musculoskeletal: denies: pain, tenderness, stiffness, swelling, arthritis/arthralgias Neurological: denies: numbness, syncope, seizure, weakness - Objective Allergies/Adverse Reactions: Allergies Allergy/AdvReac Type Severity Reaction Status Date / Time Penicillins Allergy Rash Verified 06/03/19 07:30 pneumococcal vaccine Allergy Verified 06/03/19 07:30 Visit Medications: Current Medications Acetaminophen (Acetaminophen 325 Mg Tab) 650 mg PO Q4H PRN PRN Reason: Headache/Fever/Mild Pain (1-3) Hydrocodone Bitart/Acetaminophen (Hydrocodone/Acetaminophen 10/325 Mg Tablet) 1 tab PO Q4H PRN PRN Reason: Moderate to Severe Pain (6-10) Last Admin: 02/25/20 12:49 Dose: 1 tab Documented by: Amlodipine Besylate (Amlodipine 5 Mg Tab) 5 mg PO DAILY [facility] Last Admin: 02/25/20 09:01 Dose: 5 mg Documented by: Lipase/Protease/Amylase (Pancrelipase Dr 12,000 1 Cap) 1 cap PO TID-WM [facility] Last Admin: 02/25/20 12:48 Dose: 1 cap Documented by: Atorvastatin Calcium (Atorvastatin Calcium 40 Mg Tab) 40 mg PO HS [facility] Last Admin: 02/24/20 20:33 Dose: 40 mg Documented by: Enoxaparin Sodium (Enoxaparin Sodium 40 Mg/0.4 Ml Syringe) 40 mg SC 0900 [facility] Last Admin: 02/25/20 09:03 Dose: Not Given Documented by: Sodium Chloride (Normal Saline 0.9%) 1,000 mls @ 75 mls/hr IV .[id number] [facility] Last Admin: 02/25/20 09:03 Dose: 1,000 mls Documented by: Isosorbide Mononitrate (Isosorbide Mononitrate Er 30 Mg Tab) 30 mg PO DAILY [facility] Last Admin: 02/25/20 09:00 Dose: 30 mg Documented by: Losartan Potassium (Losartan 25 Mg Tab) 50 mg PO DAILY [facility] Last Admin: 02/25/20 09:00 Dose: 50 mg Documented by: Metoprolol Succinate (Metoprolol Succinate Xl 50 Mg Tab) 50 mg PO DAILY [facility] Last Admin: 02/25/20 08:59 Dose: 50 mg Documented by: Miscellaneous Medication (Electrolyte Replacement Protocol 1 Each) 1 each FS ASDIR [facility] Morphine Sulfate (Morphine 2 Mg/Ml Vial) 2 mg SLOW IVP Q4H PRN PRN Reason: Breakthrough Pain Last Admin: 02/25/20 09:01 Dose: 2 mg Documented by: Nitroglycerin (Nitroglycerin 0.4 Mg Tab (25 Tab Bottle)) 0.4 mg SL Q5MIN PRN PRN Reason: Chest Pain Last Admin: 02/24/20 22:05 Dose: 1 tab Documented by: Pantoprazole Sodium (Pantoprazole 40 Mg Tab) 40 mg PO BID [facility] Last Admin: 02/25/20 09:00 Dose: 40 mg Documented by: Ranolazine (Ranolazine 500 Mg Tab) 1,000 mg PO BID [facility] Last Admin: 02/25/20 09:00 Dose: 1,000 mg Documented by: Scopolamine (Scopolamine 1.5 Mg/72 Hour Patch) 1.5 mg TD Q3D [facility] Last Admin: 02/22/20 15:20 Dose: 1.5 mg Documented by: Sodium Chloride (Flush - Normal Saline 10 Ml Syringe) 10 ml IVF Q12HR [facility] Last Admin: 02/25/20 09:02 Dose: 10 ml Documented by: Sodium Chloride (Flush - Normal Saline 10 Ml Syringe) 10 ml IVF PRN PRN PRN Reason: Saline Flush Vancomycin HCl (Vancomycin Hcl 25 Mg/Ml Oral) 125 mg PO Q6HR [facility] Last Admin: 02/25/20 12:49 Dose: 125 mg Documented by: Vital Signs & Weight: Vital Signs Temp Pulse Resp BP Pulse Ox 02/25/20 11:50 98.6 F 79 12 133/79 93 L 02/25/20 09:03 96 12/15/20 07:45 98.6 F 84 14 164/93 H 93 L 02/25/20 04:30 98.4 F 69 18 113/58 L 98 Admit Weight 194 lb 7 oz Weight 203 lb 12.8 oz - Quality Measures Condition: Coronary Artery Disease CV meds: Beta Marleny: Yes, PA/ARB: Yes, Statin: Yes, ASA: No (Contraindicated d/t anemia ), Plavix/Effient/Brilinta: No, Anticoagulant: No - Medication Contraindications No Antithrombotic reason: Medical contraindication No Anticoagulant reason: Medical contraindication - Physical Exam General: alert & oriented x3, appears well, no apparent distress HEENT: mucus membranes moist Neck: no JVD/HJR, no masses, no bruit Cardiac: regular rate and rhythm, no murmur Lungs: clear to auscultation, normal breath sounds, normal exam, no wheeze, rales, rhonchi Neuro: grossly intact, motor function intact, sensory function intact Abdomen: active bowel sounds, soft Extremities: no cyanosis, no clubbing, no edema Skin: clear Musculoskeletal: no pain - Labs Result Diagrams: 02/25/20 04:29 02/25/20 04:29 Troponin/CKMB CK-MB (CK-2) 0.8 ng/mL (0-6.6) 02/21/20 21:14 Troponin I 0.026 ng/mL (< 0.028) 02/25/20 04:29 - EKG Interpretation EKG Method: Telemetry EKG: sinus rhythm - Assessment/Plan Assessment/Plan: 1. Chest pain: No episodes of chest pain over night. He has had no EKG changes. He had a cardiac catheterization on 12/02/19 in [place]: this showed 1st marginal lesion is 50% stenosed, smaller OM1 disease and PCI would compromise larger Cx/OM2 vessel and would medically manage. RCA without significant disease. His home medications did include ARBS, as well as Ranexa and Isosorbide Mononitrate, we will medically manage, I have re-started his home medications, he is taking a beta marleny, ARB, and statin medications. 2. Anemia: Receieved 2 units of PRBC's and had endoscopy yesterday. Managed by GI service. 3. Hereditary spherocytosis: to be managed by primary care services. 4. History of hypertension: resonably controlled at this time, he has been started back on his home medications. 5. Hypercholesterolemia: he has been started back on his Lipitor.
== END 2020-02-25 15:51 | disposition home or self-care (01) | DRG 811 ==
LOC: ERS 20:56 → 2NO 23:33 → OBSVTOIN 02-24 15:34
PROVIDERS: ADMIT Internal Medicine; ATTEND Internal Medicine
PROC: 0DB68ZX Excision of Stomach, Via Natural or Artificial Opening Endoscopic, Diagnostic (ICD-10-PCS; principal; 2020-02-24)
PROC: 0DJD8ZZ Inspection of Lower Intestinal Tract, Via Natural or Artificial Opening Endoscopic (ICD-10-PCS; 2020-02-24)
PROC: 30233N1 Transfusion of Nonautologous Red Blood Cells into Peripheral Vein, Percutaneous Approach (ICD-10-PCS; 2020-02-24)
DX: D62 Acute posthemorrhagic anemia (principal); K26.4 Chronic or unspecified duodenal ulcer with hemorrhage; N17.9 Acute kidney failure, unspecified; I13.0 Hypertensive heart and chronic kidney disease with heart failure and stage 1 through stage 4 chronic kidney disease, or unspecified chronic kidney disease; K31.1 Adult hypertrophic pyloric stenosis; R07.9 Chest pain, unspecified; E78.00 Pure hypercholesterolemia, unspecified; F41.9 Anxiety disorder, unspecified; F32.9 Major depressive disorder, single episode, unspecified; E87.6 Hypokalemia; D58.0 Hereditary spherocytosis; K29.70 Gastritis, unspecified, without bleeding; K64.4 Residual hemorrhoidal skin tags; N18.9 Chronic kidney disease, unspecified; I25.10 Atherosclerotic heart disease of native coronary artery without angina pectoris; Z90.49 Acquired absence of other specified parts of digestive tract; Z90.81 Acquired absence of spleen; Z88.0 Allergy status to penicillin; Z79.899 Other long term (current) drug therapy; Z90.89 Acquired absence of other organs; R19.7 Diarrhea, unspecified; Z20.828 Contact with and (suspected) exposure to other viral communicable diseases
CPT/HCPCS: 36415; 36430; 71045; 71275; 74174; 80048; 80053; 80061; 80306; 81001; 82150; 82553; 83605; 83690; 83735; 83880; 84443; 84484; 85014; 85018; 85025; 85379; 86850; 86900; 86901; 87045; 87046; 87324; 87427; 87449; 87493; 87635; 88305; 88312; 93005; 93010; 93306; 94760; 96365; 96372; 96375; G0378; J1650; J2270; J2405; J2704; J3475; J3480; J7050; P9016; U0003

== ENCOUNTER 2020-02-27 17:54 | Emergency (ER) | payer OTHER ==
[2020-02-27] MEDS ORDERED: Fentanyl 100 MCG/2 ML VIAL ONE ×2 (18:23→20:09)
[2020-02-27] MEDS ORDERED: Ondansetron PF 4 MG/2 ML Vial ONE (18:38)
[2020-02-27 18:48] LABS: Hemoglobin 10.1 g/dL (14.0-18.0); Mean Corpuscular HGB CONC 32.4 g/dL (32.0-36.0); Mean Corpuscular Hemoglobin 27.6 pg (27.0-31.0); Mean Corpuscular Volume 85.1 fL (78.0-98.0); Mean Platelet Volume 7.7 fL (7.4-10.4); Platelet Count 609 thou/uL (130-400); RBC Distribution Width 15.6 % (11.5-14.5); Red Blood Cell (RBC) Count 3.66 mill/uL (4.70-6.10); White Blood Cell (WBC) Count 8.4 thou/uL (4.8-10.8)
--- NOTE | 2020-02-27 19:01 | RAD ---
CHEST ONE VIEW: 02/27/20 INDICATION: Chest pain. COMPARISON: Prior exam dated 02/24/20. FINDINGS: Small calcified granuloma of the left lower lobe is stable. No acute air space opacity is evident. He art size is normal. No pleural effusion or pneumothorax evident. No acute osseous abnormality is evid ent. IMPRESSION: No acute cardiopulmonary abnormality. POS: BH
[2020-02-27 19:11] LABS: Anisocytosis SLIGHT = 6-15 cells (100X) (0-5/hpf); Band 3 % (5-11); Eosinophils 2 % (0-10); Lymphocytes 27 % (21-51); MDiff Complete? YES; Monocytes 21 % (0-10); Neutrophil 39 % (42-75); Platelet Morphology Comment Appears Increased; Polychromasia SLIGHT = 2-3 cells (100X) (0-2/hpf); Reactive Lymphocytes 8 % (0-10); Target Cells SLIGHT = 2-5 cells (100X) (0-1/hpf)
[2020-02-27] MEDS ORDERED: Mag-Al 1200 mg/1200 mg/30 ML UDCUP ONE (19:14)
[2020-02-27] MEDS ORDERED: Lidocaine Viscous Sol 2% 15 ml UD Cup ONE (19:14)
[2020-02-27 19:23] LABS: ALT (SGPT) 16 U/L (8-55); AST (SGOT) 14 U/L (5-34); Albumin 4.6 g/dL (3.5-5.0); Alkaline Phosphatase 90 U/L (40-110); Anion Gap 18 mmol/L (10-20); BUN (Urea Nitrogen) 13 mg/dL (8.9-20.6); Bilirubin, Total 0.5 mg/dL (0.2-1.2); Calc. Creatinine Clearance 0 mL/min (70-130); Calcium 9.3 mg/dL (7.8-10.44); Carbon Dioxide 19 mmol/L (22-29); Chloride 112 mmol/L (98-107); Glucose 108 mg/dL (70-105); Potassium 3.5 mmol/L (3.5-5.1); Protein, Total 7.6 g/dL (6.0-8.3); Sodium 145 mmol/L (136-145)
== END 2020-02-27 20:46 | disposition home or self-care (01) ==
LOC: ERS 17:54
DX: K26.9 Duodenal ulcer, unspecified as acute or chronic, without hemorrhage or perforation (principal); E78.5 Hyperlipidemia, unspecified; E78.00 Pure hypercholesterolemia, unspecified; I11.0 Hypertensive heart disease with heart failure; I50.9 Heart failure, unspecified; Z79.899 Other long term (current) drug therapy
CPT/HCPCS: 36415; 71045; 80053; 84484; 85025; 93005; 94760; 96374; 96375; 96376; J2405; J3010

== ENCOUNTER 2020-07-15 15:48 | Observation (INO) | payer OTHER ==
[2020-07-15 16:14] LABS: #Lymphocytes 3.1 thou/uL (1.20-3.40); #Monocytes 1.2 thou/uL (0.11-0.59); #Neutrophils 6.2 thou/uL (1.40-6.50); %Basophils 0.1 % (0.0-1.0); %Eosinophils 0.2 % (0.0-10.0); %Lymphocytes 29.5 % (21.0-51.0); %Monocytes 11.6 % (0.0-10.0); %Neutrophils 58.6 % (42.0-75.0); Hemoglobin 12.9 g/dL (14.0-18.0); Mean Corpuscular HGB CONC 33.1 g/dL (32.0-36.0); Mean Corpuscular Hemoglobin 27.4 pg (27.0-31.0); Mean Corpuscular Volume 82.8 fL (78.0-98.0); Platelet Count 568 thou/uL (130-400); Red Blood Cell (RBC) Count 4.72 mill/uL (4.70-6.10); White Blood Cell (WBC) Count 10.5 thou/uL (4.8-10.8)
[2020-07-15] MEDS ORDERED: Ondansetron PF 4 MG/2 ML Vial ONE (16:25)
[2020-07-15] MEDS ORDERED: Morphine 4 MG/ML VIAL ONE ×2 (16:25→17:40)
[2020-07-15 16:37] LABS: ALT (SGPT) 11 U/L (8-55); AST (SGOT) 14 U/L (5-34); Albumin 4.8 g/dL (3.5-5.0); Alkaline Phosphatase 108 U/L (40-110); Anion Gap 18 mmol/L (10-20); BUN (Urea Nitrogen) 11 mg/dL (8.9-20.6); Calc. Creatinine Clearance 0 mL/min (70-130); Calcium 10.1 mg/dL (7.8-10.44); Carbon Dioxide 20 mmol/L (22-29); Chloride 108 mmol/L (98-107); Globulin 3.8 g/dL (2.4-3.5); Glucose 124 mg/dL (70-105); Protein, Total 8.6 g/dL (6.0-8.3); Sodium 143 mmol/L (136-145)
[2020-07-15 16:44] LABS: Potassium 2.7 mmol/L (3.5-5.1)
[2020-07-15 16:54] LABS: Bacteria/HPF None Seen HPF (None Seen); Bilirubin Negative (Negative); Blood, Urine 1+ (Negative); Clarity Clear (Clear); Glucose, Urine (Dipstick) Normal (Negative); Ketone, Urine Negative (Negative); Leukocyte Negative Leu/uL (Negative); Nitrite Negative (Negative); Protein, Urine (Dipstick) 50 mg/dL (Neg-Trace); Specific Gravity, Urine 1.025 (1.002-1.036); Squamous Epithelial None Seen HPF (0-3); Urobilinogen Normal mg/dL (Less than 2); WBC/HPF 0-3 HPF (0-3); pH, Urine 6.5 (5.0-9.0)
[2020-07-15 16:56] LABS: Calcium Oxalate Crystals 1+ HPF (None Seen)
[2020-07-15 17:02] LABS: CKMB 0.8 ng/mL (0-6.6)
[2020-07-15] MEDS ORDERED: Potassium Chloride 20 MEQ TAB ONE (17:10)
[2020-07-15] MEDS ORDERED: cefTRIAXone\\ROCEPHIN 2 GM VIAL ONE (18:36)
[2020-07-15 19:15] LABS: Lactic Acid 0.9 mmol/L (0.5-2.2)
[2020-07-15] MEDS ORDERED: Guaifenesin DM 100-10/5 ML UDCUP PO PRN (20:03)
[2020-07-15] MEDS ORDERED: Calcium Carbonate 500 MG ChewTAB PO PRN (20:03)
[2020-07-15] MEDS ORDERED: Bisacodyl 10 MG SUPP PR PRN (20:03)
[2020-07-15] MEDS ORDERED: Loperamide HCl 2 MG CAP PO PRN (20:03)
[2020-07-15] MEDS ORDERED: Zolpidem Tartrate 5 MG TAB PO PRN (20:03)
[2020-07-15] MEDS ORDERED: Acetaminophen 325 MG TAB PO PRN (20:03)
[2020-07-15] MEDS ORDERED: Ondansetron ODT 4 MG TAB PO PRN (20:03)
[2020-07-15] MEDS ORDERED: Senokot S 8.6-50 MG TAB PO PRN (20:03)
[2020-07-15] MEDS ORDERED: Ondansetron PF 4 MG/2 ML Vial IVP PRN (20:03)
[2020-07-15] MEDS ORDERED: Sodium Chloride 0.65% Nasal 44 ML BOT EA NARE PRN (20:11)
[2020-07-15] MEDS ORDERED: Loratadine 10 MG TAB PO PRN (20:11)
[2020-07-15] MEDS ORDERED: hydrALAZINE 20 MG/ML VIAL SLOW IVP PRN (20:11)
[2020-07-15] MEDS ORDERED: Famotidine 20 MG TAB PO SCH (21:00)
[2020-07-15 21:43] LABS: Troponin I 0.062 ng/mL (< 0.028)
[2020-07-15] MEDS: HYDROcodone/Acetaminophen 5/325 mg Tablet PO PRN (22:16)
[2020-07-15] MEDS: Cyclobenzaprine 10 MG TAB PO SCH (22:17)
[2020-07-15] MEDS: Tamsulosin HCl 0.4 MG CAP PO SCH (22:17)
[2020-07-15] MEDS: Sodium Chloride 0.9% 1,000 ML IV SCH (22:17)
[2020-07-15] MEDS: Potassium Chloride 20 MEQ TAB PO SCH (22:17)
[2020-07-15 22:39] VITALS: BMI 31.1
[2020-07-16] MEDS: Morphine 4 MG/ML VIAL SLOW IVP PRN ×6 (00:53→21:08)
[2020-07-16 01:22] LABS: Troponin I 0.057 ng/mL (< 0.028)
[2020-07-16 05:31] LABS: Eosinophils 6 % (0-10); Hemoglobin 11.3 g/dL (14.0-18.0); Lymphocytes 36 % (21-51); MDiff Complete? YES; Mean Corpuscular HGB CONC 34.8 g/dL (32.0-36.0); Mean Corpuscular Hemoglobin 29.3 pg (27.0-31.0); Mean Corpuscular Volume 84.1 fL (78.0-98.0); Metamyelocyte 1 % (0-0); Monocytes 12 % (0-10); Neutrophil 44 % (42-75); Platelet Count 464 thou/uL (130-400); Platelet Morphology Comment Appears Increased; Red Blood Cell (RBC) Count 3.85 mill/uL (4.70-6.10); White Blood Cell (WBC) Count 8.5 thou/uL (4.8-10.8)
[2020-07-16 05:36] LABS: SARS-CoV-2 PCR by NAA Not Detected (NotDetected)
[2020-07-16 05:41] LABS: Anion Gap 12 mmol/L (10-20); BUN (Urea Nitrogen) 11 mg/dL (8.9-20.6); Calc. Creatinine Clearance 111 mL/min (70-130); Calcium 8.4 mg/dL (7.8-10.44); Carbon Dioxide 23 mmol/L (22-29); Chloride 109 mmol/L (98-107); Glucose 107 mg/dL (70-105); Potassium 2.9 mmol/L (3.5-5.1); Sodium 141 mmol/L (136-145)
[2020-07-16] MEDS: Sodium Chloride 0.9% 1,000 ML IV SCH ×2 (08:06→16:53)
[2020-07-16] MEDS: Tamsulosin HCl 0.4 MG CAP PO SCH ×2 (08:08→21:12)
[2020-07-16] MEDS: Amlodipine 10 MG TAB PO SCH (08:08)
[2020-07-16] MEDS: Aspirin Chewable 81 MG TAB PO SCH (08:08)
[2020-07-16] MEDS: Potassium Chloride 20 MEQ TAB PO SCH ×2 (08:08→21:12)
[2020-07-16] MEDS ORDERED: Potassium Chloride 20 MEQ TAB PO SCH (09:00)
[2020-07-16] MEDS ORDERED: Magnesium Sulfate 2 GM in Sodium Chloride 0.9% 100 ML IVPB SCH (09:00)
[2020-07-16] MEDS: Magnesium 2 GM/50 ML 2 GM in Premix Bag 1 BAG IVPB SCH ×2 (09:41→09:45)
[2020-07-16] MEDS: Escitalopram Oxalate 10 mg Tablet PO SCH (09:42)
[2020-07-16] MEDS: HYDROcodone/Acetaminophen 5/325 mg Tablet PO PRN (09:42)
[2020-07-16] MEDS: Atorvastatin Calcium 40 MG TAB PO SCH (09:42)
[2020-07-16] MEDS: hydrALAZINE 25 MG TAB PO SCH ×2 (09:43→21:11)
[2020-07-16] MEDS ORDERED: HYDROcodone/Acetaminophen 10/325 mg Tablet PO PRN (11:48)
[2020-07-16] MEDS ORDERED: cefTRIAXone\\ROCEPHIN 1 GM in Sodium Chloride 0.9% 100 ML IVPB SCH (18:00)
[2020-07-16] MEDS ORDERED: Zolpidem Tartrate 5 MG TAB PO SCH (21:00)
[2020-07-16] MEDS: Cyclobenzaprine 10 MG TAB PO SCH (21:12)
[2020-07-17] MEDS: Morphine 4 MG/ML VIAL SLOW IVP PRN ×3 (01:09→09:12)
[2020-07-17] MEDS: Sodium Chloride 0.9% 1,000 ML IV SCH (01:13)
[2020-07-17 06:13] LABS: Anion Gap 9 mmol/L (10-20); BUN (Urea Nitrogen) 11 mg/dL (8.9-20.6); Calc. Creatinine Clearance 117 mL/min (70-130); Calcium 8.5 mg/dL (7.8-10.44); Carbon Dioxide 24 mmol/L (22-29); Chloride 107 mmol/L (98-107); Glucose 107 mg/dL (70-105); Magnesium 1.8 mg/dL (1.6-2.6); Potassium 3.3 mmol/L (3.5-5.1); Sodium 137 mmol/L (136-145)
[2020-07-17 08:21] VITALS: BP 156/90; TEMP 97.7
[2020-07-17] MEDS: Aspirin Chewable 81 MG TAB PO SCH (08:21)
[2020-07-17] MEDS: Amlodipine 10 MG TAB PO SCH (08:21)
[2020-07-17] MEDS: Potassium Chloride 20 MEQ TAB PO SCH (08:21)
[2020-07-17] MEDS: Escitalopram Oxalate 10 mg Tablet PO SCH (08:21)
[2020-07-17] MEDS: Tamsulosin HCl 0.4 MG CAP PO SCH (08:21)
[2020-07-17] MEDS: hydrALAZINE 25 MG TAB PO SCH (08:22)
[2020-07-17] MEDS: Atorvastatin Calcium 40 MG TAB PO SCH (08:22)
[2020-07-17] MEDS ORDERED: Potassium Chloride 20 MEQ TAB PO SCH (09:00)
[2020-07-17] MEDS ORDERED: Magnesium 2 GM/50 ML 2 GM in Premix Bag 1 BAG IVPB SCH (09:00)
== END 2020-07-17 11:37 | disposition home or self-care (01) ==
LOC: ERS 15:48 → 2SW 19:02
PROVIDERS: ADMIT Internal Medicine; ATTEND Internal Medicine
DX: R10.9 Unspecified abdominal pain (principal); R07.89 Other chest pain; R11.0 Nausea; I10 Essential (primary) hypertension; E78.5 Hyperlipidemia, unspecified; E87.6 Hypokalemia; N17.9 Acute kidney failure, unspecified; Z79.899 Other long term (current) drug therapy; Z88.0 Allergy status to penicillin; Z88.7 Allergy status to serum and vaccine; Z20.822 Contact with and (suspected) exposure to COVID-19
CPT/HCPCS: 36415; 71045; 71275; 74174; 80048; 80053; 81003; 81015; 82553; 83605; 83735; 83880; 84484; 85025; 87040; 87086; 87149; 87635; 96365; 96375; 96376; G0378; J0696; J2270; J2405; J3475; Q9967; U0003; U0005

== ENCOUNTER 2020-07-19 18:16 | Inpatient (IN) | payer OTHER ==
[2020-07-19 18:59] LABS: #Basophils 0.1 thou/uL (0.0-0.2); #Eosinphils 0.1 thou/uL (0.0-0.7); #Lymphocytes 2.2 thou/uL (1.20-3.40); #Monocytes 1.3 thou/uL (0.11-0.59); #Neutrophils 6.6 thou/uL (1.40-6.50); %Basophils 0.7 % (0.0-1.0); %Eosinophils 0.6 % (0.0-10.0); %Lymphocytes 21.7 % (21.0-51.0); %Monocytes 12.6 % (0.0-10.0); %Neutrophils 64.4 % (42.0-75.0); Hemoglobin 13.9 g/dL (14.0-18.0); Mean Corpuscular HGB CONC 33.8 g/dL (32.0-36.0); Mean Corpuscular Hemoglobin 28.4 pg (27.0-31.0); Platelet Count 613 thou/uL (130-400); RBC Distribution Width 14.9 % (11.5-14.5); Red Blood Cell (RBC) Count 4.88 mill/uL (4.70-6.10); White Blood Cell (WBC) Count 10.2 thou/uL (4.8-10.8)
[2020-07-19] MEDS ORDERED: Ondansetron PF 4 MG/2 ML Vial ONE ×2 (19:10→19:13)
[2020-07-19 19:12] LABS: Bilirubin Negative (Negative); Blood, Urine 1+ (Negative); Calcium Oxalate Crystals Rare HPF (None Seen); Clarity Clear (Clear); Glucose, Urine (Dipstick) Normal (Negative); Ketone, Urine Negative (Negative); Leukocyte Negative Leu/uL (Negative); Nitrite Negative (Negative); Protein, Urine (Dipstick) 30 mg/dL (Neg-Trace); RBC/HPF 0-3 HPF (0-3); Squamous Epithelial 0-3 HPF (0-3); Urobilinogen Normal mg/dL (Less than 2); pH, Urine 6.5 (5.0-9.0)
[2020-07-19 19:13] LABS: Bacteria/HPF Rare-Few HPF (None Seen)
[2020-07-19 19:17] LABS: ALT (SGPT) 16 U/L (8-55); AST (SGOT) 15 U/L (5-34); Albumin 5.1 g/dL (3.5-5.0); Alkaline Phosphatase 103 U/L (40-110); Anion Gap 16 mmol/L (10-20); BUN (Urea Nitrogen) 16 mg/dL (8.9-20.6); Bilirubin, Total 0.9 mg/dL (0.2-1.2); CK (CPK) 102 U/L (30-200); Calc. Creatinine Clearance 0 mL/min (70-130); Carbon Dioxide 23 mmol/L (22-29); Chloride 106 mmol/L (98-107); Globulin 3.8 g/dL (2.4-3.5); Glucose 147 mg/dL (70-105); Protein, Total 8.9 g/dL (6.0-8.3); Sodium 142 mmol/L (136-145)
[2020-07-19 19:21] LABS: Potassium 2.8 mmol/L (3.5-5.1)
[2020-07-19] MEDS ORDERED: Ketorolac Tromethamine 30 MG/ML VIAL ONE (19:35)
[2020-07-19] MEDS ORDERED: Potassium Chloride 20 MEQ TAB ONE (19:35)
[2020-07-19 19:39] LABS: CKMB 0.6 ng/mL (0-6.6)
[2020-07-19] MEDS ORDERED: Morphine 4 MG/ML VIAL ONE ×3 (19:57→23:25)
[2020-07-19] MEDS ORDERED: Senokot S 8.6-50 MG TAB PO PRN (21:33)
[2020-07-19] MEDS ORDERED: Ondansetron ODT 4 MG TAB PO PRN (21:33)
[2020-07-19] MEDS ORDERED: Guaifenesin DM 100-10/5 ML UDCUP PO PRN (21:33)
[2020-07-19] MEDS ORDERED: Loperamide HCl 2 MG CAP PO PRN (21:33)
[2020-07-19] MEDS ORDERED: Acetaminophen 325 MG TAB PO PRN (21:33)
[2020-07-19] MEDS ORDERED: Bisacodyl 10 MG SUPP PR PRN (21:33)
[2020-07-19] MEDS ORDERED: hydrALAZINE 20 MG/ML VIAL SLOW IVP PRN (21:52)
[2020-07-19] MEDS ORDERED: Potassium Chloride 20 MEQ in Premix Bag 1 BAG IVPB SCH (22:15)
[2020-07-20 00:05] VITALS: BMI 31.3
[2020-07-20] MEDS: HYDROcodone/Acetaminophen 5/325 mg Tablet PO PRN ×6 (01:14→23:20)
[2020-07-20] MEDS: Zolpidem Tartrate 5 MG TAB PO PRN (01:14)
[2020-07-20] MEDS: Ondansetron PF 4 MG/2 ML Vial IVP PRN ×3 (03:00→15:39)
[2020-07-20] MEDS: Morphine 4 MG/ML VIAL SLOW IVP PRN ×5 (03:25→20:59)
[2020-07-20] MEDS: 1/2 NS w/KCL 20 mEq 1,000 ML IV SCH ×2 (05:37→19:10)
[2020-07-20 07:24] LABS: #Eosinphils 0.1 thou/uL (0.0-0.7); #Lymphocytes 2.1 thou/uL (1.20-3.40); #Monocytes 1.3 thou/uL (0.11-0.59); #Neutrophils 10.2 thou/uL (1.40-6.50); %Basophils 0.2 % (0.0-1.0); %Eosinophils 0.5 % (0.0-10.0); %Monocytes 9.5 % (0.0-10.0); %Neutrophils 74.9 % (42.0-75.0); Hemoglobin 11.8 g/dL (14.0-18.0); Mean Corpuscular HGB CONC 33.4 g/dL (32.0-36.0); Mean Corpuscular Hemoglobin 28.3 pg (27.0-31.0); Mean Corpuscular Volume 84.8 fL (78.0-98.0); Mean Platelet Volume 7.9 fL (7.4-10.4); Platelet Count 566 thou/uL (130-400); RBC Distribution Width 15.1 % (11.5-14.5); Red Blood Cell (RBC) Count 4.16 mill/uL (4.70-6.10); White Blood Cell (WBC) Count 13.7 thou/uL (4.8-10.8)
[2020-07-20] MEDS: Famotidine 20 MG TAB PO SCH ×2 (07:51→21:00)
[2020-07-20 08:04] LABS: ALT (SGPT) 14 U/L (8-55); AST (SGOT) 13 U/L (5-34); Albumin 4.1 g/dL (3.5-5.0); Alkaline Phosphatase 86 U/L (40-110); Anion Gap 12 mmol/L (10-20); BUN (Urea Nitrogen) 13 mg/dL (8.9-20.6); Bilirubin, Total 0.6 mg/dL (0.2-1.2); Calc. Creatinine Clearance 104 mL/min (70-130); Calcium 9.1 mg/dL (7.8-10.44); Carbon Dioxide 22 mmol/L (22-29); Chloride 108 mmol/L (98-107); Globulin 3.1 g/dL (2.4-3.5); Glucose 129 mg/dL (70-105); Magnesium 1.9 mg/dL (1.6-2.6); Phosphorus 2.9 mg/dL (2.3-4.7); Potassium 3.4 mmol/L (3.5-5.1); Protein, Total 7.2 g/dL (6.0-8.3); Sodium 139 mmol/L (136-145)
[2020-07-20] MEDS ORDERED: Famotidine/PF 20 mg/2ml Vial SLOW IVP SCH (09:00)
[2020-07-20] MEDS: Ketorolac Tromethamine 30 MG/ML VIAL IVP PRN (15:37)
[2020-07-21] MEDS: Ondansetron PF 4 MG/2 ML Vial IVP PRN ×2 (00:43→08:27)
[2020-07-21] MEDS: Ketorolac Tromethamine 30 MG/ML VIAL IVP PRN ×3 (00:43→20:49)
[2020-07-21] MEDS: Zolpidem Tartrate 5 MG TAB PO PRN (00:48)
[2020-07-21] MEDS: Morphine 4 MG/ML VIAL SLOW IVP PRN (02:54)
[2020-07-21] MEDS: HYDROcodone/Acetaminophen 5/325 mg Tablet PO PRN ×3 (04:52→18:21)
[2020-07-21 06:58] LABS: #Eosinphils 0.5 thou/uL (0.0-0.7); #Lymphocytes 2.7 thou/uL (1.20-3.40); #Monocytes 1.2 thou/uL (0.11-0.59); #Neutrophils 4.2 thou/uL (1.40-6.50); %Basophils 0.5 % (0.0-1.0); %Eosinophils 5.4 % (0.0-10.0); %Lymphocytes 31.2 % (21.0-51.0); %Monocytes 13.7 % (0.0-10.0); %Neutrophils 49.1 % (42.0-75.0); Hemoglobin 11.2 g/dL (14.0-18.0); Mean Corpuscular HGB CONC 33.1 g/dL (32.0-36.0); Mean Corpuscular Hemoglobin 28.2 pg (27.0-31.0); Mean Corpuscular Volume 85.3 fL (78.0-98.0); Mean Platelet Volume 7.8 fL (7.4-10.4); Platelet Count 517 thou/uL (130-400); Red Blood Cell (RBC) Count 3.96 mill/uL (4.70-6.10); White Blood Cell (WBC) Count 8.5 thou/uL (4.8-10.8)
[2020-07-21 07:16] LABS: Anion Gap 11 mmol/L (10-20); BUN (Urea Nitrogen) 19 mg/dL (8.9-20.6); Calc. Creatinine Clearance 99 mL/min (70-130); Calcium 8.9 mg/dL (7.8-10.44); Carbon Dioxide 24 mmol/L (22-29); Chloride 106 mmol/L (98-107); Glucose 96 mg/dL (70-105); Magnesium 1.9 mg/dL (1.6-2.6); Potassium 3.2 mmol/L (3.5-5.1); Sodium 138 mmol/L (136-145)
[2020-07-21] MEDS: 1/2 NS w/KCL 20 mEq 1,000 ML IV SCH ×3 (08:26→23:10)
[2020-07-21] MEDS: Hydrochlorothiazide 25 MG TAB PO SCH ×2 (08:27→20:07)
[2020-07-21] MEDS: Potassium Chloride 20 MEQ TAB PO SCH ×2 (08:28→20:07)
[2020-07-21] MEDS: Atorvastatin Calcium 40 MG TAB PO SCH (08:28)
[2020-07-21] MEDS: Morphine 4 MG/ML VIAL SLOW IVP SCH ×3 (08:28→23:58)
[2020-07-21] MEDS: hydrALAZINE 25 MG TAB PO SCH ×2 (08:28→20:07)
[2020-07-21] MEDS: Famotidine 20 MG TAB PO SCH ×2 (08:28→20:07)
[2020-07-21] MEDS: Escitalopram Oxalate 10 mg Tablet PO SCH (08:28)
[2020-07-21] MEDS ORDERED: Non-Formulary Item 1 EACH (Hydrochlorothiazide [Hydrochlorothiazide] 12.5 MG Tablet) PO SCH (09:00)
[2020-07-21] MEDS ORDERED: Non-Formulary Item 1 EACH (Ranolazine [Ranexa] 1,000 MG Tab.Er.12h) PO SCH (09:00)
[2020-07-21] MEDS ORDERED: Morphine 4 MG/ML VIAL SLOW IVP SCH (14:00)
[2020-07-21] MEDS ORDERED: Cyclobenzaprine 10 MG TAB PO SCH (21:00)
[2020-07-22] MEDS: Zolpidem Tartrate 5 MG TAB PO PRN (00:01)
[2020-07-22] MEDS: 1/2 NS w/KCL 20 mEq 1,000 ML IV SCH ×3 (00:05→09:27)
[2020-07-22] MEDS: HYDROcodone/Acetaminophen 5/325 mg Tablet PO PRN (05:22)
[2020-07-22] MEDS: Morphine 4 MG/ML VIAL SLOW IVP SCH (08:04)
[2020-07-22] MEDS: Famotidine 20 MG TAB PO SCH (08:05)
[2020-07-22] MEDS: Hydrochlorothiazide 25 MG TAB PO SCH (08:05)
[2020-07-22] MEDS: hydrALAZINE 25 MG TAB PO SCH (08:05)
[2020-07-22] MEDS: Escitalopram Oxalate 10 mg Tablet PO SCH (08:05)
[2020-07-22] MEDS: Atorvastatin Calcium 40 MG TAB PO SCH (08:05)
[2020-07-22] MEDS: Potassium Chloride 20 MEQ TAB PO SCH (08:05)
[2020-07-22 09:03] VITALS: TEMP 98.6
[2020-07-22 12:04] VITALS: BP 161/100
== END 2020-07-22 14:36 | disposition home or self-care (01) | DRG 694 ==
LOC: ERS 18:16 → OBSVTOIN 21:09 → ONC 21:09 → INTOOBSV 21:09 → OBSVTOIN 07-22 09:20 → INTOOBSV 07-22 09:20
PROVIDERS: ADMIT Internal Medicine; ATTEND Hospitalist
DX: N20.0 Calculus of kidney (principal); N17.9 Acute kidney failure, unspecified; Z79.899 Other long term (current) drug therapy; K52.9 Noninfective gastroenteritis and colitis, unspecified; Z20.822 Contact with and (suspected) exposure to COVID-19; D58.0 Hereditary spherocytosis; I11.0 Hypertensive heart disease with heart failure; I50.9 Heart failure, unspecified; E78.5 Hyperlipidemia, unspecified; F41.9 Anxiety disorder, unspecified; F32.9 Major depressive disorder, single episode, unspecified; R77.8 Other specified abnormalities of plasma proteins; G89.29 Other chronic pain; E87.6 Hypokalemia; Z87.442 Personal history of urinary calculi; Z90.49 Acquired absence of other specified parts of digestive tract; Z90.81 Acquired absence of spleen; Z90.89 Acquired absence of other organs; Z95.828 Presence of other vascular implants and grafts; Z88.0 Allergy status to penicillin; Z88.7 Allergy status to serum and vaccine
CPT/HCPCS: 36415; 74176; 80048; 80053; 81003; 81015; 82550; 82553; 83605; 83735; 84100; 84484; 85025; 93005; 96374; 96375; 96376; G0378; J0360; J1885; J2270; J2405; J3480; Q0162; S0028

== ENCOUNTER 2020-08-17 22:21 | Emergency (ER) | payer OTHER ==
[2020-08-17 23:09] LABS: ALT (SGPT) 12 U/L (8-55); AST (SGOT) 14 U/L (5-34); Albumin 4.2 g/dL (3.5-5.0); Alkaline Phosphatase 89 U/L (40-110); Anion Gap 14 mmol/L (10-20); BUN (Urea Nitrogen) 14 mg/dL (8.9-20.6); Bilirubin, Total 0.6 mg/dL (0.2-1.2); Calc. Creatinine Clearance 0 mL/min (70-130); Calcium 9.1 mg/dL (7.8-10.44); Carbon Dioxide 24 mmol/L (22-29); Chloride 111 mmol/L (98-107); Globulin 2.9 g/dL (2.4-3.5); Glucose 103 mg/dL (70-105); Potassium 3.5 mmol/L (3.5-5.1); Protein, Total 7.1 g/dL (6.0-8.3); Sodium 145 mmol/L (136-145)
[2020-08-17 23:12] LABS: Hemoglobin 12.4 g/dL (14.0-18.0); Mean Corpuscular HGB CONC 34.8 g/dL (32.0-36.0); Mean Corpuscular Hemoglobin 29.9 pg (27.0-31.0); RBC Distribution Width 15.3 % (11.5-14.5); Red Blood Cell (RBC) Count 4.14 mill/uL (4.70-6.10)
[2020-08-17 23:20] LABS: Band 1 % (5-11); Eosinophils 3 % (0-10); Lymphocytes 31 % (21-51); MDiff Complete? YES; Mean Platelet Volume 7.3 fL (7.4-10.4); Monocytes 9 % (0-10); Neutrophil 56 % (42-75); Platelet Count 501 thou/uL (130-400); White Blood Cell (WBC) Count 10.4 thou/uL (4.8-10.8)
[2020-08-17 23:32] LABS: CKMB 0.8 ng/mL (0-6.6)
[2020-08-17] MEDS ORDERED: Morphine 4 MG/ML VIAL ONE (23:35)
[2020-08-17] MEDS ORDERED: Promethazine HCl 25 MG/ML VIAL ONE (23:35)
[2020-08-18 01:10] LABS: Bilirubin Negative (Negative); Blood, Urine Large (Negative); Glucose, Urine (Dipstick) Negative (Negative); Ketone, Urine Trace mg/dL (Negative); Leukocyte Negative (Negative); Nitrite Negative (Negative); Protein, Urine (Dipstick) Trace mg/dL (Neg-Trace); Urobilinogen 0.2 mg/dL (Less than 2)
[2020-08-18 01:11] LABS: Clarity Clear (Clear)
[2020-08-18 01:19] LABS: Bacteria/HPF None Seen HPF (None Seen); Calcium Oxalate Crystals 3+ HPF (None Seen); RBC/HPF Greater than 50 HPF (0-3); Squamous Epithelial 0-3 HPF (0-3)
[2020-08-18] MEDS ORDERED: Ketorolac Tromethamine 30 MG/ML VIAL ONE (02:29)
== END 2020-08-18 02:40 | disposition home or self-care (01) ==
LOC: ERS 22:21
DX: N20.2 Calculus of kidney with calculus of ureter (principal); I11.0 Hypertensive heart disease with heart failure; I50.9 Heart failure, unspecified; E78.5 Hyperlipidemia, unspecified; Z79.899 Other long term (current) drug therapy
CPT/HCPCS: 36415; 71045; 74177; 80053; 81003; 81015; 82553; 83690; 84484; 85025; 93005; 94760; 96374; 96375; J1885; J2270; J2550; Q9967

== ENCOUNTER 2020-09-02 20:01 | Inpatient (IN) | payer OTHER ==
[~2020-09-02 20:01] MED LIST changes: +Iopamidol 370 76% 100 ML VIAL ONE; -Iopamidol-370 76% 500 ML 1 ML ONE
[2020-09-02] MEDS ORDERED: Aspirin Chewable 81 MG TAB ONE (20:38)
[2020-09-02] MEDS ORDERED: Nitroglycerin 2% Ointment 1 INCH/1 GM Packet ONE (20:38)
[2020-09-02] MEDS ORDERED: Ondansetron PF 4 MG/2 ML Vial ONE ×2 (20:38→23:24)
[2020-09-02] MEDS ORDERED: Morphine 4 MG/ML VIAL ONE (20:38)
[2020-09-02 20:44] LABS: Hemoglobin 12.9 g/dL (14.0-18.0); Mean Corpuscular HGB CONC 34.7 g/dL (32.0-36.0); Mean Corpuscular Hemoglobin 29.2 pg (27.0-31.0); Mean Corpuscular Volume 84.3 fL (78.0-98.0); Mean Platelet Volume 8.2 fL (7.4-10.4); Platelet Count 500 thou/uL (130-400); Red Blood Cell (RBC) Count 4.43 mill/uL (4.70-6.10); White Blood Cell (WBC) Count 10.1 thou/uL (4.8-10.8)
[2020-09-02 20:58] LABS: ALT (SGPT) 18 U/L (8-55); AST (SGOT) 20 U/L (5-34); Albumin 4.7 g/dL (3.5-5.0); Alkaline Phosphatase 109 U/L (40-110); Anion Gap 18 mmol/L (10-20); BUN (Urea Nitrogen) 23 mg/dL (8.9-20.6); Bilirubin, Total 0.7 mg/dL (0.2-1.2); Calc. Creatinine Clearance 0 mL/min (70-130); Calcium 9.8 mg/dL (7.8-10.44); Carbon Dioxide 17 mmol/L (22-29); Chloride 111 mmol/L (98-107); Globulin 3.3 g/dL (2.4-3.5); Glucose 108 mg/dL (70-105); Lipase 17 U/L (8-78); Potassium 3.3 mmol/L (3.5-5.1); Sodium 143 mmol/L (136-145)
[2020-09-02 21:13] LABS: Band 2 % (5-11); Eosinophils 1 % (0-10); Lymphocytes 19 % (21-51); MDiff Complete? YES; Monocytes 15 % (0-10); Neutrophil 63 % (42-75); Platelet Morphology Comment Appears Adequate
[2020-09-02] MEDS ORDERED: Labetalol HCl 100 MG/20 ML VIAL ONE (21:26)
[2020-09-02] MEDS ORDERED: Morphine 2 MG/ML VIAL ONE (23:20)
[2020-09-03 00:34] LABS: Lactic Acid 1.4 mmol/L (0.5-2.2)
[2020-09-03 00:50] LABS: Troponin I 0.053 ng/mL (< 0.028)
[2020-09-03] MEDS ORDERED: Acetaminophen 500 MG TAB ONE (03:32)
[2020-09-03] MEDS ORDERED: traMADol HCl 50 MG TAB ONE (03:32)
[2020-09-03] MEDS ORDERED: traMADol HCl 50 MG TAB PO SCH (04:00)
[2020-09-03] MEDS ORDERED: Acetaminophen 325 MG TAB PO PRN (04:18)
[2020-09-03] MEDS ORDERED: Nitroglycerin 0.4 MG TAB (25 Tab Bottle) SL PRN (04:22)
[2020-09-03] MEDS ORDERED: Ketorolac Tromethamine 30 MG/ML VIAL ONE (04:28)
[2020-09-03] MEDS: Ketorolac Tromethamine 30 MG/ML VIAL IVP PRN ×2 (04:31→19:48)
[2020-09-03] MEDS ORDERED: Morphine 2 MG/ML VIAL ONE ×3 (05:21→14:01)
[2020-09-03] MEDS: Morphine 2 MG/ML VIAL SLOW IVP PRN ×4 (05:24→23:01)
[2020-09-03] MEDS: Heparin 5,000 UNITS/ML VIAL SC SCH ×3 (09:21→21:13)
[2020-09-03 11:00] LABS: SARS-CoV-2 PCR by NAA Not Detected (NotDetected)
[2020-09-03] MEDS ORDERED: HYDROcodone/Acetaminophen 10/325 mg Tablet PO PRN (11:11)
[2020-09-03 14:37] VITALS: BMI 31.8
[2020-09-03] MEDS: Sodium Chloride 0.9% 1,000 ML IV SCH (16:24)
[2020-09-03] MEDS ORDERED: Zolpidem Tartrate 5 MG TAB PO SCH (21:00)
[2020-09-03] MEDS ORDERED: Cyclobenzaprine 10 MG TAB PO SCH (21:00)
[2020-09-03] MEDS: hydrALAZINE 25 MG TAB PO SCH (21:12)
[2020-09-03] MEDS: Tamsulosin HCl 0.4 MG CAP PO SCH (21:13)
[2020-09-04] MEDS: Sodium Chloride 0.9% 1,000 ML IV SCH ×2 (01:30→08:31)
[2020-09-04] MEDS: Morphine 2 MG/ML VIAL SLOW IVP PRN ×3 (04:10→12:15)
[2020-09-04 05:09] LABS: Eosinophils 3 % (0-10); Hemoglobin 11.9 g/dL (14.0-18.0); Lymphocytes 36 % (21-51); MDiff Complete? YES; Mean Corpuscular HGB CONC 34.7 g/dL (32.0-36.0); Mean Corpuscular Hemoglobin 29.6 pg (27.0-31.0); Mean Corpuscular Volume 85.1 fL (78.0-98.0); Mean Platelet Volume 8.3 fL (7.4-10.4); Monocytes 16 % (0-10); Neutrophil 45 % (42-75); Platelet Count 424 thou/uL (130-400); Platelet Morphology Comment Appears Increased; RBC Distribution Width 14.8 % (11.5-14.5); Red Blood Cell (RBC) Count 4.02 mill/uL (4.70-6.10); White Blood Cell (WBC) Count 7.5 thou/uL (4.8-10.8)
[2020-09-04 05:10] LABS: Anion Gap 12 mmol/L (10-20); BUN (Urea Nitrogen) 15 mg/dL (8.9-20.6); Calc. Creatinine Clearance 111 mL/min (70-130); Calcium 8.6 mg/dL (7.8-10.44); Carbon Dioxide 23 mmol/L (22-29); Chloride 108 mmol/L (98-107); Glucose 99 mg/dL (70-105); Sodium 140 mmol/L (136-145)
[2020-09-04 05:22] LABS: Potassium 2.9 mmol/L (3.5-5.1)
[2020-09-04] MEDS ORDERED: Electrolyte Replacement Protocol FS PRN (05:45)
[2020-09-04] MEDS: Potassium Chloride 20 MEQ TAB PO SCH ×3 (05:47→14:58)
[2020-09-04] MEDS: Ketorolac Tromethamine 30 MG/ML VIAL IVP PRN (05:49)
[2020-09-04] MEDS ORDERED: Magnesium 2 GM/50 ML 2 GM in Premix Bag 1 BAG IVPB SCH (07:00)
[2020-09-04] MEDS: Heparin 5,000 UNITS/ML VIAL SC SCH ×2 (08:22→14:47)
[2020-09-04] MEDS: Tamsulosin HCl 0.4 MG CAP PO SCH (08:22)
[2020-09-04] MEDS: hydrALAZINE 25 MG TAB PO SCH (08:23)
[2020-09-04] MEDS ORDERED: Escitalopram Oxalate 10 mg Tablet PO SCH (09:00)
[2020-09-04] MEDS ORDERED: Ondansetron PF 4 MG/2 ML Vial IVP PRN (11:27)
[2020-09-04 15:56] VITALS: BP 119/66; TEMP 98.5
[2020-09-04] MEDS ORDERED: Atorvastatin Calcium 40 MG TAB PO SCH (21:00)
== END 2020-09-04 16:11 | disposition home or self-care (01) | DRG 392 ==
LOC: ERS 20:01 → ERHOLD 23:38 → OBSVTOIN 09-03 11:11 → 2NO 09-03 14:07
PROVIDERS: ADMIT Student in an Organized Health Care Education/Training Program; ATTEND Internal Medicine
DX: R10.9 Unspecified abdominal pain (principal); N17.9 Acute kidney failure, unspecified; I13.0 Hypertensive heart and chronic kidney disease with heart failure and stage 1 through stage 4 chronic kidney disease, or unspecified chronic kidney disease; Z20.822 Contact with and (suspected) exposure to COVID-19; D58.0 Hereditary spherocytosis; E87.6 Hypokalemia; F32.9 Major depressive disorder, single episode, unspecified; F41.9 Anxiety disorder, unspecified; I25.10 Atherosclerotic heart disease of native coronary artery without angina pectoris; E78.5 Hyperlipidemia, unspecified; I50.9 Heart failure, unspecified; N18.9 Chronic kidney disease, unspecified; E78.00 Pure hypercholesterolemia, unspecified; R77.8 Other specified abnormalities of plasma proteins; Z90.49 Acquired absence of other specified parts of digestive tract; Z87.442 Personal history of urinary calculi; Z88.0 Allergy status to penicillin; Z88.7 Allergy status to serum and vaccine; Z79.899 Other long term (current) drug therapy
CPT/HCPCS: 36415; 71045; 71275; 74174; 80048; 80053; 82553; 83605; 83690; 83735; 84484; 85025; 93005; 93306; 96372; 96374; 96375; 96376; G0378; J1644; J1885; J2270; J2405; J3475; Q9967; U0003; U0005

== ENCOUNTER 2021-08-05 16:25 | Emergency (ER) | payer MEDICAID, OTHER ==
[2021-08-05 17:01] LABS: #Eosinphils 0.1 thou/uL (0.0-0.7); #Lymphocytes 3.3 thou/uL (1.20-3.40); #Neutrophils 5.3 thou/uL (1.40-6.50); %Basophils 0.1 % (0.0-1.0); %Eosinophils 1.1 % (0.0-10.0); %Lymphocytes 34.1 % (21.0-51.0); %Monocytes 10.2 % (0.0-10.0); %Neutrophils 54.5 % (42.0-75.0); Hemoglobin 12.8 g/dL (14.0-18.0); Mean Corpuscular HGB CONC 33.5 g/dL (32.0-36.0); Mean Corpuscular Hemoglobin 27.9 pg (27.0-31.0); Mean Corpuscular Volume 83.5 fL (78.0-98.0); Mean Platelet Volume 7.5 fL (7.4-10.4); Platelet Count 479 thou/uL (130-400); RBC Distribution Width 15.2 % (11.5-14.5); Red Blood Cell (RBC) Count 4.58 mill/uL (4.70-6.10); White Blood Cell (WBC) Count 9.8 thou/uL (4.8-10.8)
[2021-08-05] MEDS ORDERED: Ketorolac Tromethamine 30 MG/ML VIAL ONE (17:20)
[2021-08-05] MEDS ORDERED: Diazepam 5 MG TAB ONE (17:20)
[2021-08-05 17:28] LABS: ALT (SGPT) 14 U/L (8-55); AST (SGOT) 15 U/L (5-34); Albumin 4.5 g/dL (3.5-5.0); Alkaline Phosphatase 95 U/L (40-110); Anion Gap 14 mmol/L (10-20); BUN (Urea Nitrogen) 17 mg/dL (8.9-20.6); Bilirubin, Total 0.5 mg/dL (0.2-1.2); Calc. Creatinine Clearance 0 mL/min (70-130); Calcium 9.2 mg/dL (7.8-10.44); Carbon Dioxide 24 mmol/L (22-29); Chloride 108 mmol/L (98-107); Globulin 3.6 g/dL (2.4-3.5); Glucose 102 mg/dL (70-105); Protein, Total 8.1 g/dL (6.0-8.3); Sodium 143 mmol/L (136-145)
[2021-08-05] MEDS ORDERED: Potassium Chloride 20 MEQ TAB ONE ×2 (17:59→18:05)
== END 2021-08-05 17:54 | disposition home or self-care (01) ==
LOC: ERS 16:25
DX: M54.16 Radiculopathy, lumbar region (principal); E87.6 Hypokalemia; I11.0 Hypertensive heart disease with heart failure; I50.9 Heart failure, unspecified; Z79.899 Other long term (current) drug therapy
CPT/HCPCS: 36415; 80053; 85025; 93005; 96372; J1885

== ENCOUNTER 2022-09-16 15:16 | Inpatient (IN) | payer OTHER ==
[~2022-09-16 15:16] MED LIST changes: -Iopamidol 370 76% 100 ML VIAL ONE; +Iopamidol-370 76% 500 ML MDV (1 ML CHARGE) ONE
[2022-09-16 16:57] LABS: #Basophils 0.1 thou/uL (0.0-0.2); #Eosinphils 0.1 thou/uL (0.0-0.7); #Neutrophils 4.5 thou/uL (1.40-6.50); %Basophils 0.8 % (0.0-1.0); %Eosinophils 1.3 % (0.0-10.0); %Lymphocytes 27.4 % (21.0-51.0); %Monocytes 12.9 % (0.0-10.0); %Neutrophils 57.3 % (42.0-75.0); Hemoglobin 12.3 g/dL (14.0-18.0); Mean Corpuscular HGB CONC 35.7 g/dL (32.0-36.0); Mean Corpuscular Hemoglobin 29.4 pg (27.0-31.0); Mean Corpuscular Volume 82.3 fl (78.0-98.0); Mean Platelet Volume 9.9 fL (7.4-10.4); Platelet Count 573 10x3/uL (130-400); RBC Distribution Width 14.9 % (11.5-14.5); Red Blood Cell (RBC) Count 4.19 mill/uL (4.70-6.10); White Blood Cell (WBC) Count 7.8 10x3/uL (4.8-10.8)
[2022-09-16] MEDS ORDERED: Morphine 4 MG/ML VIAL ONE ×2 (17:00→18:14)
[2022-09-16] MEDS ORDERED: Ondansetron PF 4 MG/2 ML Vial ONE (17:00)
[2022-09-16 17:11] LABS: Bacteria/HPF None Seen HPF (None Seen); Bilirubin Negative (Negative); Blood, Urine 2+ (Negative); CAUTI Indications for Culture Dysuria,urgency,freq; Clarity Clear (Clear); Glucose, Urine (Dipstick) Normal (Negative); Ketone, Urine Negative (Negative); Leukocyte Negative Leu/uL (Negative); Nitrite Negative (Negative); Protein, Urine (Dipstick) 50 mg/dL (Neg-Trace); RBC/HPF 21-50 HPF (0-3); Specific Gravity, Urine 1.025 (1.002-1.036); Squamous Epithelial None Seen HPF (0-3); Urobilinogen Normal mg/dL (Less than 2); WBC/HPF 0-3 HPF (0-3)
[2022-09-16 17:13] LABS: Urine Culture Reflex No No
[2022-09-16 17:21] LABS: ALT (SGPT) 15 U/L (8-55); AST (SGOT) 14 U/L (5-34); Albumin 4.7 g/dL (3.5-5.0); Alkaline Phosphatase 101 U/L (40-110); Anion Gap 17 mmol/L (10-20); BUN (Urea Nitrogen) 16 mg/dL (8.9-20.6); Bilirubin, Total 0.6 mg/dL (0.2-1.2); Calc. Creatinine Clearance 0 mL/min (70-130); Calcium 9.4 mg/dL (7.8-10.44); Carbon Dioxide 18 mmol/L (22-29); Chloride 109 mmol/L (98-107); Estimated GFR 73; Globulin 2.8 g/dL (2.4-3.5); Glucose 112 mg/dL (70-105); Lipase 7 U/L (8-78); Potassium 2.9 mmol/L (3.5-5.1); Protein, Total 7.5 g/dL (6.0-8.3); Sodium 141 mmol/L (136-145)
[2022-09-16 17:52] LABS: CKMB 1.3 ng/mL (0-6.6)
[2022-09-16] MEDS ORDERED: Ondansetron ODT 4 MG TAB PO PRN (18:32)
[2022-09-16] MEDS ORDERED: Ondansetron PF 4 MG/2 ML Vial IVP PRN (18:32)
[2022-09-16] MEDS ORDERED: Potassium Chloride 20 MEQ TAB ONE (18:41)
[2022-09-16] MEDS ORDERED: hydrALAZINE 25 MG TAB ONE (18:41)
[2022-09-16] MEDS ORDERED: Magnesium 2 GM/50 ML BAG (IN WATER) ONE (18:45)
[2022-09-16 19:58] LABS: Troponin I 0.193 ng/mL (< 0.028)
[2022-09-16] MEDS: Tamsulosin HCl 0.4 MG CAP PO SCH (21:14)
[2022-09-16] MEDS: hydrALAZINE 25 MG TAB PO SCH (21:14)
[2022-09-16] MEDS: Cyclobenzaprine 10 MG TAB PO SCH (21:14)
[2022-09-16] MEDS: HYDROcodone/Acetaminophen 10/325 mg Tablet PO PRN (21:14)
[2022-09-16] MEDS: Zolpidem Tartrate 5 MG TAB PO SCH (21:14)
[2022-09-16 22:00] VITALS: BMI 30.5
[2022-09-17] MEDS: HYDROcodone/Acetaminophen 10/325 mg Tablet PO PRN ×4 (02:25→23:09)
[2022-09-17] MEDS ORDERED: Morphine 2 MG/ML VIAL SLOW IVP SCH (03:30)
[2022-09-17 06:25] LABS: #Basophils 0.1 thou/uL (0.0-0.2); #Eosinphils 0.3 thou/uL (0.0-0.7); #Monocytes 1.7 thou/uL (0.11-0.59); #Neutrophils 4.7 thou/uL (1.40-6.50); %Basophils 0.8 % (0.0-1.0); %Eosinophils 3.1 % (0.0-10.0); %Lymphocytes 26.4 % (21.0-51.0); %Monocytes 18.3 % (0.0-10.0); %Neutrophils 51.1 % (42.0-75.0); Hemoglobin 11.8 g/dL (14.0-18.0); Mean Corpuscular HGB CONC 35.3 g/dL (32.0-36.0); Mean Corpuscular Hemoglobin 29.6 pg (27.0-31.0); Mean Corpuscular Volume 83.9 fl (78.0-98.0); Mean Platelet Volume 10.3 fL (7.4-10.4); Platelet Count 536 10x3/uL (130-400); RBC Distribution Width 15.2 % (11.5-14.5); Red Blood Cell (RBC) Count 3.98 mill/uL (4.70-6.10); White Blood Cell (WBC) Count 9.3 10x3/uL (4.8-10.8)
[2022-09-17 06:47] LABS: Anion Gap 16 mmol/L (10-20); BUN (Urea Nitrogen) 19 mg/dL (8.9-20.6); Calc. Creatinine Clearance 83 mL/min (70-130); Calcium 8.9 mg/dL (7.8-10.44); Carbon Dioxide 21 mmol/L (22-29); Chloride 106 mmol/L (98-107); Estimated GFR 61; Glucose 102 mg/dL (70-105); Sodium 140 mmol/L (136-145)
[2022-09-17] MEDS: Cyclobenzaprine 10 MG TAB PO SCH ×2 (07:49→20:40)
[2022-09-17] MEDS: Escitalopram Oxalate 10 mg Tablet PO SCH (07:49)
[2022-09-17] MEDS: hydrALAZINE 25 MG TAB PO SCH ×3 (07:54→20:40)
[2022-09-17] MEDS: Tamsulosin HCl 0.4 MG CAP PO SCH ×2 (09:00→20:41)
[2022-09-17] MEDS ORDERED: ADENOSINE 60 MG/20 ML SDV ONE (10:00)
[2022-09-17 13:56] LABS: Troponin I 0.202 ng/mL (< 0.028)
[2022-09-17] MEDS: Atorvastatin Calcium 40 MG TAB PO SCH (14:23)
[2022-09-17] MEDS: Cyanocobalamin (Vitamin B-12) 1,000 MCG TAB PO SCH (14:23)
[2022-09-17] MEDS: Aspirin Chewable 81 MG TAB PO SCH (14:23)
[2022-09-17] MEDS: Folic Acid 1 MG TAB PO SCH (14:24)
[2022-09-17] MEDS: Ferrous Sulfate 325 MG TAB PO SCH (14:24)
[2022-09-17] MEDS: NIFEdipine XL 30 MG TAB PO SCH (14:24)
[2022-09-17] MEDS: Potassium Chloride 20 MEQ TAB PO SCH ×2 (14:24→20:40)
[2022-09-17] MEDS: Sodium Chloride 0.9% 1,000 ML IV SCH ×2 (14:24→23:41)
[2022-09-17] MEDS ORDERED: Ketorolac Tromethamine 60 MG/2 ML VIAL IM PRN (14:26)
[2022-09-17] MEDS ORDERED: Ketorolac Tromethamine 30 MG/ML VIAL IM PRN (16:45)
[2022-09-17] MEDS ORDERED: HYDROcodone/Acetaminophen 10/325 mg Tablet PO SCH (18:00)
[2022-09-17] MEDS: Zolpidem Tartrate 5 MG TAB PO SCH (20:40)
[2022-09-18] MEDS: HYDROcodone/Acetaminophen 10/325 mg Tablet PO PRN ×4 (05:13→22:36)
[2022-09-18 05:50] LABS: #Basophils 0.1 thou/uL (0.0-0.2); #Eosinphils 0.4 thou/uL (0.0-0.7); #Monocytes 1.4 thou/uL (0.11-0.59); %Basophils 0.7 % (0.0-1.0); %Eosinophils 3.7 % (0.0-10.0); %Lymphocytes 20.8 % (21.0-51.0); %Monocytes 14.2 % (0.0-10.0); %Neutrophils 60.3 % (42.0-75.0); Hemoglobin 10.8 g/dL (14.0-18.0); Mean Corpuscular HGB CONC 31.3 g/dL (32.0-36.0); Mean Corpuscular Hemoglobin 29.5 pg (27.0-31.0); Mean Platelet Volume 10.1 fL (7.4-10.4); Platelet Count 452 10x3/uL (130-400); RBC Distribution Width 15.3 % (11.5-14.5); Red Blood Cell (RBC) Count 3.66 mill/uL (4.70-6.10)
[2022-09-18 05:51] LABS: Mean Corpuscular Volume 94.3 fl (78.0-98.0)
[2022-09-18 06:15] LABS: Anion Gap 17 mmol/L (10-20); BUN (Urea Nitrogen) 19 mg/dL (8.9-20.6); Calc. Creatinine Clearance 102 mL/min (70-130); Calcium 8.4 mg/dL (7.8-10.44); Carbon Dioxide 13 mmol/L (22-29); Chloride 112 mmol/L (98-107); Estimated GFR 78; Glucose 98 mg/dL (70-105); Potassium 3.5 mmol/L (3.5-5.1); Sodium 138 mmol/L (136-145)
[2022-09-18] MEDS: Cyanocobalamin (Vitamin B-12) 1,000 MCG TAB PO SCH (08:25)
[2022-09-18] MEDS: Escitalopram Oxalate 10 mg Tablet PO SCH (08:25)
[2022-09-18] MEDS: Atorvastatin Calcium 40 MG TAB PO SCH (08:25)
[2022-09-18] MEDS: hydrALAZINE 25 MG TAB PO SCH ×3 (08:25→20:14)
[2022-09-18] MEDS: Aspirin Chewable 81 MG TAB PO SCH (08:25)
[2022-09-18] MEDS: Folic Acid 1 MG TAB PO SCH (08:25)
[2022-09-18] MEDS: Tamsulosin HCl 0.4 MG CAP PO SCH ×2 (08:25→20:13)
[2022-09-18] MEDS: NIFEdipine XL 30 MG TAB PO SCH (08:25)
[2022-09-18] MEDS: Cyclobenzaprine 10 MG TAB PO SCH ×2 (08:25→20:13)
[2022-09-18] MEDS: Ferrous Sulfate 325 MG TAB PO SCH (08:25)
[2022-09-18] MEDS ORDERED: Potassium Chloride 20 MEQ TAB PO SCH (09:30)
[2022-09-18] MEDS: Sodium Chloride 0.9% 1,000 ML IV SCH ×2 (12:09→20:16)
[2022-09-18] MEDS ORDERED: Morphine 4 MG/ML VIAL SLOW IVP SCH (15:15)
[2022-09-18] MEDS ORDERED: Morphine 4 MG/ML VIAL SLOW IVP PRN (15:19)
[2022-09-18] MEDS: Zolpidem Tartrate 5 MG TAB PO SCH (20:13)
[2022-09-18] MEDS: Acetaminophen 325 MG TAB PO PRN (20:14)
[2022-09-19] MEDS: Acetaminophen 325 MG TAB PO PRN ×2 (01:43→09:49)
[2022-09-19] MEDS: HYDROcodone/Acetaminophen 10/325 mg Tablet PO PRN ×2 (04:37→10:41)
[2022-09-19] MEDS: Sodium Chloride 0.9% 1,000 ML IV SCH (04:38)
[2022-09-19 05:50] LABS: #Basophils 0.1 thou/uL (0.0-0.2); #Eosinphils 0.4 thou/uL (0.0-0.7); #Neutrophils 4.2 thou/uL (1.40-6.50); %Basophils 0.7 % (0.0-1.0); %Eosinophils 4.8 % (0.0-10.0); %Lymphocytes 22.1 % (21.0-51.0); %Neutrophils 58.1 % (42.0-75.0); Mean Corpuscular HGB CONC 34.7 g/dL (32.0-36.0); Mean Corpuscular Hemoglobin 30.1 pg (27.0-31.0); Mean Platelet Volume 10.1 fL (7.4-10.4); Platelet Count 533 10x3/uL (130-400); RBC Distribution Width 14.8 % (11.5-14.5); Red Blood Cell (RBC) Count 3.66 mill/uL (4.70-6.10); White Blood Cell (WBC) Count 7.2 10x3/uL (4.8-10.8)
[2022-09-19 06:00] LABS: Mean Corpuscular Volume 86.6 fl (78.0-98.0)
[2022-09-19 06:09] LABS: Anion Gap 13 mmol/L (10-20); BUN (Urea Nitrogen) 14 mg/dL (8.9-20.6); Calc. Creatinine Clearance 124 mL/min (70-130); Calcium 8.6 mg/dL (7.8-10.44); Carbon Dioxide 21 mmol/L (22-29); Chloride 107 mmol/L (98-107); Estimated GFR 99; Glucose 98 mg/dL (70-105); Sodium 138 mmol/L (136-145)
[2022-09-19] MEDS ORDERED: Potassium Chloride 20 MEQ TAB PO SCH (09:00)
[2022-09-19 09:25] LABS: Magnesium 1.9 mg/dL (1.6-2.6)
[2022-09-19] MEDS: Cyanocobalamin (Vitamin B-12) 1,000 MCG TAB PO SCH (09:39)
[2022-09-19] MEDS: Atorvastatin Calcium 40 MG TAB PO SCH (09:39)
[2022-09-19] MEDS: Escitalopram Oxalate 10 mg Tablet PO SCH (09:39)
[2022-09-19] MEDS: Aspirin Chewable 81 MG TAB PO SCH (09:39)
[2022-09-19] MEDS: Cyclobenzaprine 10 MG TAB PO SCH (09:39)
[2022-09-19] MEDS: Ferrous Sulfate 325 MG TAB PO SCH (09:40)
[2022-09-19] MEDS: Folic Acid 1 MG TAB PO SCH (09:40)
[2022-09-19] MEDS: hydrALAZINE 25 MG TAB PO SCH (09:40)
[2022-09-19] MEDS: NIFEdipine XL 30 MG TAB PO SCH (09:40)
[2022-09-19] MEDS: Tamsulosin HCl 0.4 MG CAP PO SCH (09:41)
[2022-09-19 12:31] VITALS: BP 161/105; TEMP 97.8
== END 2022-09-19 14:30 | disposition home or self-care (01) | DRG 313 ==
LOC: ERS 15:16 → 2SW 20:35 → OBSVTOIN 09-17 13:07
PROVIDERS: ADMIT Hospitalist; ATTEND Internal Medicine
DX: R07.89 Other chest pain (principal); I50.32 Chronic diastolic (congestive) heart failure; N20.0 Calculus of kidney; I11.0 Hypertensive heart disease with heart failure; I50.9 Heart failure, unspecified; E78.5 Hyperlipidemia, unspecified; D58.0 Hereditary spherocytosis; F41.9 Anxiety disorder, unspecified; F32.A Depression, unspecified; E87.6 Hypokalemia; Z90.49 Acquired absence of other specified parts of digestive tract; Z79.82 Long term (current) use of aspirin; Z88.0 Allergy status to penicillin; Z90.89 Acquired absence of other organs; Z88.7 Allergy status to serum and vaccine; Z79.899 Other long term (current) drug therapy
CPT/HCPCS: 36415; 71045; 71275; 74177; 78452; 80048; 80053; 81001; 82553; 83690; 83735; 83880; 84443; 84484; 85025; 85379; 93005; 93017; 93306; 96365; 96372; 96375; 96376; A9500; G0378; J0153; J1650; J1885; J2270; J2272; J2405; J3475; J7050; Q9967

== ENCOUNTER 2024-05-01 19:26 | Inpatient (IN) | payer MEDICAID, OTHER ==
[2024-05-01] MEDS ORDERED: Ondansetron PF 4 MG/2 ML Vial ONE ×2 (20:11→23:43)
[2024-05-01] MEDS ORDERED: Morphine 4 MG/ML VIAL ONE (20:11)
[2024-05-01 20:37] LABS: #Basophils 0.06 10x3/uL (0.0-0.2); #Eosinophils Less than 0.03 10x3/uL (0.0-0.7); %Basophils 0.5 % (0.0-1.0); %Eosinophils 0.2 % (0.0-10.0); %Lymphocytes 13.6 % (21.0-51.0); %Monocytes 13.6 % (0.0-10.0); %Neutrophils 71.8 % (42.0-75.0); Hematocrit 34.9 % (42.0-52.0); Hemoglobin 12.7 g/dL (14.0-18.0); Mean Corpuscular HGB CONC 36.4 g/dL (32.0-36.0); Mean Corpuscular Hemoglobin 30.5 pg (27.0-31.0); Mean Corpuscular Volume 83.9 fL (78.0-98.0); Mean Platelet Volume 9.9 fL (7.4-10.4); Platelet Count 453 10x3/uL (130-400); RBC Distribution Width 14.6 % (11.5-14.5); Red Blood Cell (RBC) Count 4.16 mill/uL (4.70-6.10)
[2024-05-01 20:57] LABS: ALT (SGPT) 13 U/L (Less than 45); AST (SGOT) 31 U/L (11-34); Albumin 4.5 g/dL (3.1-4.5); Alkaline Phosphatase 133 U/L (40-110); Anion Gap 21 mmol/L (10-20); BUN (Urea Nitrogen) 21 mg/dL (8.9-20.6); Bilirubin, Total 1.1 mg/dL (0.3-1.2); Calc. Creatinine Clearance 0 mL/min (70-130); Calcium 9.8 mg/dL (7.8-10.44); Carbon Dioxide 17 mmol/L (22-29); Chloride 105 mmol/L (98-107); Estimated GFR 37; Globulin 4.1 g/dL (2.4-3.5); Glucose 114 mg/dL (70-105); Lipase 14 U/L (8-78); Protein, Total 8.6 g/dL (6.0-8.3); Sodium 140 mmol/L (136-145)
[2024-05-01] MEDS ORDERED: cefTRIAXone (ROCEPHIN) 1 GM VIAL ONE ×2 (21:10→23:43)
[2024-05-01] MEDS ORDERED: Sodium Chloride 0.9% 100 ML ONE ×2 (21:10→23:43)
[2024-05-01 21:27] LABS: Bacteria/HPF None Seen HPF (None Seen); Bilirubin Negative (Negative); Blood, Urine 1+ (Negative); CAUTI Indications for Culture < 2yrs of age; Clarity Clear (Clear); Glucose, Urine (Dipstick) Normal (Negative); Ketone, Urine 10 mg/dL (Negative); Leukocyte Negative Leu/uL (Negative); Nitrite Negative (Negative); Protein, Urine (Dipstick) 30 mg/dL (Neg-Trace); RBC/HPF 0-3 HPF (0-3); Specific Gravity, Urine 1.018 (1.002-1.036); Squamous Epithelial 0-3 HPF (0-3); Urobilinogen Normal mg/dL (Less than 2); WBC/HPF 0-3 HPF (0-3)
[2024-05-01] MEDS ORDERED: Vancomycin 1 GM/200 ML (FROZEN) BAG ONE ×2 (21:32→23:57)
[2024-05-01 21:39] LABS: Urine Culture Reflex Yes Yes
[2024-05-01] MEDS ORDERED: HYDROmorphone 0.5 MG/0.5 ML SYRINGE ONE (21:54)
[2024-05-01] MEDS ORDERED: Potassium Chloride 20 MEQ TAB ONE (23:42)
[2024-05-02] MEDS ORDERED: Acetaminophen 650 MG Suppository PR PRN (00:26)
[2024-05-02] MEDS ORDERED: Acetaminophen 325 MG TAB PO PRN (00:26)
[2024-05-02] MEDS ORDERED: Calcium Carbonate 500 MG ChewTAB PO PRN (00:26)
[2024-05-02 00:36] LABS: Acetaminophen Less than 10 mcg/mL (Less than 10); Alcohol Less than 10.0 mg/dL (Less than 10); Lactic Acid 2.79 mmol/L (0.50-2.20); Salicylate Less than 8.0 mg/dL (Less than 8.0)
[2024-05-02] MEDS: Sodium Chloride 0.9% 1,000 ML IV SCH (01:02)
[2024-05-02] MEDS: Morphine 2 MG/ML VIAL SLOW IVP PRN (01:02)
[2024-05-02] MEDS: Morphine 2 MG/ML VIAL SLOW IVP SCH (02:30)
[2024-05-02] MEDS: Labetalol HCl 100 MG/20 ML VIAL SLOW IVP SCH (03:34)
[2024-05-02 03:38] LABS: Influenza A by NAA Not Detected (NotDetected); Influenza B by NAA Not Detected (NotDetected); SARS-CoV-2 NAA Rapid Test Not Detected (NotDetected)
[2024-05-02] MEDS: Ondansetron PF 4 MG/2 ML Vial IVP PRN (04:57)
[2024-05-02 05:52] LABS: #Basophils 0.06 10x3/uL (0.0-0.2); #Eosinophils Less than 0.03 10x3/uL (0.0-0.7); %Basophils 0.5 % (0.0-1.0); %Eosinophils 0.1 % (0.0-10.0); %Lymphocytes 10.2 % (21.0-51.0); %Neutrophils 71.7 % (42.0-75.0); Hematocrit 30.8 % (42.0-52.0); Mean Corpuscular HGB CONC 35.7 g/dL (32.0-36.0); Mean Corpuscular Hemoglobin 30.7 pg (27.0-31.0); Mean Platelet Volume 10.4 fL (7.4-10.4); Platelet Count 441 10x3/uL (130-400); RBC Distribution Width 14.8 % (11.5-14.5); Red Blood Cell (RBC) Count 3.58 mill/uL (4.70-6.10)
[2024-05-02 06:03] LABS: Vancomycin, Random 25.6 ug/mL (See Comment)
[2024-05-02 06:05] LABS: Anion Gap 19 mmol/L (10-20); BUN (Urea Nitrogen) 19 mg/dL (8.9-20.6); Calc. Creatinine Clearance 65 mL/min (70-130); Calcium 8.9 mg/dL (7.8-10.44); Carbon Dioxide 16 mmol/L (22-29); Chloride 112 mmol/L (98-107); Estimated GFR 44; Glucose 158 mg/dL (70-105); Magnesium 1.7 mg/dL (1.6-2.6); Potassium 3.2 mmol/L (3.5-5.1); Sodium 144 mmol/L (136-145)
[2024-05-02] MEDS ORDERED: Potassium Chloride 20 MEQ TAB PO SCH (08:15)
[2024-05-02] MEDS ORDERED: Electrolyte Replacement Protocol FS PRN (08:15)
[2024-05-02] MEDS: HYDROmorphone 0.5 MG/0.5 ML SYRINGE SLOW IVP SCH (08:27)
[2024-05-02] MEDS ORDERED: Vancomycin 1 GM in Premix 1 BAG IVPB SCH (09:00)
[2024-05-02] MEDS: Famotidine/PF 20 mg/2ml Vial SLOW IVP SCH (09:51)
[2024-05-02] MEDS: cefTRIAXone\\ROCEPHIN 2 GM in Sodium Chloride 0.9% 100 ML IVPB SCH (09:52)
[2024-05-02] MEDS: Potassium Chloride 20 MEQ in Premix 1 BAG IVPB SCH (09:52)
[2024-05-02] MEDS ORDERED: HYDROcodone/Acetaminophen 5/325 mg Tablet PO PRN (10:30)
[2024-05-02] MEDS: Famotidine 20 MG TAB PO SCH (10:33)
[2024-05-02] MEDS: Tamsulosin HCl 0.4 MG CAP PO SCH (11:22)
[2024-05-02] MEDS: Cyanocobalamin (Vitamin B-12) 1,000 MCG TAB PO SCH (11:22)
[2024-05-02] MEDS: Ranolazine ER 500 MG TAB PO SCH (11:22)
[2024-05-02] MEDS: hydrALAZINE 25 MG TAB PO SCH (11:22)
[2024-05-02] MEDS: Metoprolol Succinate XL 25 MG ER.TAB PO SCH (11:23)
[2024-05-02] MEDS: Ferrous Sulfate 325 MG TAB PO SCH (11:23)
[2024-05-02] MEDS: NIFEdipine XL 30 MG ER.TAB PO SCH (11:23)
[2024-05-02] MEDS: Folic Acid 1 MG TAB PO SCH (11:23)
[2024-05-02] MEDS: Isosorbide Mononitrate 30 MG ER.TAB PO SCH (11:23)
[2024-05-02] MEDS: Atorvastatin Calcium 40 MG TAB PO SCH (11:28)
[2024-05-02] MEDS: Electrolyte Replacement Protocol 1 EACH FS ONE (11:30)
[2024-05-02] MEDS: HYDROcodone/Acetaminophen 5/325 mg Tablet PO PRN (12:38)
[2024-05-02] MEDS: Magnesium 2 GM/50 ML(in water) 2 GM in Premix 1 BAG IVPB SCH (14:42)
[2024-05-02] MEDS: Vancomycin (BATCH) 1.25 GM in Premix 1 BAG IVPB SCH (14:43)
[2024-05-02] MEDS: Heparin 5,000 UNITS/ML VIAL SC SCH (19:56)
[2024-05-02] MEDS ORDERED: Vancomycin (BATCH) 1.25 GM in Premix 1 BAG IVPB SCH (21:00)
[2024-05-03 04:45] LABS: #Basophils 0.07 10x3/uL (0.0-0.2); %Basophils 0.8 % (0.0-1.0); %Eosinophils 3.6 % (0.0-10.0); %Lymphocytes 16.9 % (21.0-51.0); %Monocytes 18.4 % (0.0-10.0); Hematocrit 29.2 % (42.0-52.0); Hemoglobin 9.9 g/dL (14.0-18.0); Mean Corpuscular HGB CONC 33.9 g/dL (32.0-36.0); Mean Corpuscular Volume 88.5 fL (78.0-98.0); Mean Platelet Volume 10.4 fL (7.4-10.4); Platelet Count 388 10x3/uL (130-400); RBC Distribution Width 15.5 % (11.5-14.5)
[2024-05-03 05:09] LABS: Anion Gap 13 mmol/L (10-20); BUN (Urea Nitrogen) 12 mg/dL (8.9-20.6); Calc. Creatinine Clearance 88 mL/min (70-130); Calcium 8.3 mg/dL (7.8-10.44); Carbon Dioxide 20 mmol/L (22-29); Chloride 111 mmol/L (98-107); Estimated GFR 64; Glucose 118 mg/dL (70-105); Magnesium 1.9 mg/dL (1.6-2.6); Potassium 3.1 mmol/L (3.5-5.1); Sodium 141 mmol/L (136-145)
[2024-05-03] MEDS: Potassium Bicarbonate/Cit Ac 20 MEQ TAB PO SCH (09:15)
[2024-05-03] MEDS: Magnesium 2 GM/50 ML(in water) 2 GM in Premix 1 BAG IVPB SCH (09:15)
[2024-05-03] MEDS: Vancomycin (BATCH) 1.5 GM in Premix 1 BAG IVPB SCH (13:25)
[2024-05-03] MEDS: Ondansetron ODT 4 MG TAB PO PRN (20:12)
[2024-05-04 04:31] LABS: #Basophils 0.06 10x3/uL (0.0-0.2); %Basophils 0.6 % (0.0-1.0); %Eosinophils 5.4 % (0.0-10.0); %Lymphocytes 14.2 % (21.0-51.0); %Monocytes 16.1 % (0.0-10.0); %Neutrophils 63.3 % (42.0-75.0); Hematocrit 27.2 % (42.0-52.0); Hemoglobin 9.2 g/dL (14.0-18.0); Mean Corpuscular HGB CONC 33.8 g/dL (32.0-36.0); Mean Corpuscular Hemoglobin 30.5 pg (27.0-31.0); Mean Corpuscular Volume 90.1 fL (78.0-98.0); Mean Platelet Volume 10.1 fL (7.4-10.4); Platelet Count 388 10x3/uL (130-400); Red Blood Cell (RBC) Count 3.02 mill/uL (4.70-6.10)
[2024-05-04 04:40] LABS: Anion Gap 12 mmol/L (10-20); BUN (Urea Nitrogen) 10 mg/dL (8.9-20.6); Calc. Creatinine Clearance 103 mL/min (70-130); Calcium 8.8 mg/dL (7.8-10.44); Carbon Dioxide 22 mmol/L (22-29); Chloride 107 mmol/L (98-107); Estimated GFR 76; Glucose 136 mg/dL (70-105); Sodium 138 mmol/L (136-145)
[2024-05-04] MEDS: Potassium Bicarbonate/Cit Ac 20 MEQ TAB PO SCH (05:14)
[2024-05-04] MEDS: HYDROcodone/Acetaminophen 5/325 mg Tablet PO PRN (12:57)
[2024-05-04] MEDS: Morphine 2 MG/ML VIAL SLOW IVP PRN (16:52)
[2024-05-05 04:43] LABS: Hematocrit 28.5 % (42.0-52.0); Hemoglobin 9.5 g/dL (14.0-18.0)
[2024-05-05 05:05] LABS: Magnesium 2.2 mg/dL (1.6-2.6); Potassium 3.3 mmol/L (3.5-5.1)
[2024-05-05] MEDS: Potassium Bicarbonate/Cit Ac 20 MEQ TAB PO SCH (06:48)
[2024-05-05 08:43] VITALS: BP 135/76; TEMP 98.2
[2024-05-05] MEDS: cefTRIAXone\\ROCEPHIN 1 GM in Sodium Chloride 0.9% 100 ML IVPB SCH (09:59)
== END 2024-05-05 15:57 | disposition home or self-care (01) | DRG 694 ==
LOC: ERS 19:26 → 2NO 23:28
PROVIDERS: ADMIT Student in an Organized Health Care Education/Training Program; ATTEND Student in an Organized Health Care Education/Training Program
DX: N20.0 Calculus of kidney (principal); I13.0 Hypertensive heart and chronic kidney disease with heart failure and stage 1 through stage 4 chronic kidney disease, or unspecified chronic kidney disease; I50.32 Chronic diastolic (congestive) heart failure; N17.9 Acute kidney failure, unspecified; E78.5 Hyperlipidemia, unspecified; F41.9 Anxiety disorder, unspecified; F32.A Depression, unspecified; E87.6 Hypokalemia; E83.42 Hypomagnesemia; N18.30 Chronic kidney disease, stage 3 unspecified; Z90.49 Acquired absence of other specified parts of digestive tract; Z88.5 Allergy status to narcotic agent; Z79.899 Other long term (current) drug therapy; Z90.89 Acquired absence of other organs; Z88.0 Allergy status to penicillin; Z88.7 Allergy status to serum and vaccine
CPT/HCPCS: 36415; 74177; 80048; 80053; 80202; 80307; 81001; 82010; 83605; 83690; 83735; 83880; 84132; 85014; 85018; 85025; 87040; 87086; 93005; 96365; 96366; 96368; 96375; 96376; J0696; J1171; J1644; J2270; J2272; J2405; J3370; J3475; J3480; J3490; J7030; Q0162; Q9967

== ENCOUNTER 2024-10-28 20:51 | Emergency (ER) | payer OTHER ==
[2024-10-28] MEDS ORDERED: Nitroglycerin 0.4 MG TAB 1 EACH ONE (21:27)
[2024-10-28] MEDS ORDERED: Aspirin Chewable 81 MG TAB ONE (21:28)
[2024-10-28] MEDS ORDERED: Ondansetron PF 4 MG/2 ML Vial ONE (21:28)
[2024-10-28 21:32] LABS: #Basophils 0.07 10x3/uL (0.0-0.2); #Eosinophils 0.68 10x3/uL (0.0-0.7); #Monocytes 1.45 10x3/uL (0.11-0.59); #Neutrophils 4.21 10x3/uL (1.40-6.50); %Basophils 0.8 % (0.0-1.0); %Eosinophils 7.8 % (0.0-10.0); %Lymphocytes 26.2 % (21.0-51.0); %Monocytes 16.6 % (0.0-10.0); %Neutrophils 48.3 % (42.0-75.0); Hematocrit 30.4 % (42.0-52.0); Hemoglobin 9.8 g/dL (14.0-18.0); Mean Corpuscular Hemoglobin 28.4 pg (27.0-31.0); Mean Corpuscular Volume 88.1 fL (78.0-98.0); Platelet Count 494 10x3/uL (130-400); Red Blood Cell (RBC) Count 3.45 mill/uL (4.70-6.10); White Blood Cell (WBC) Count 8.73 10x3/uL (4.8-10.8)
[2024-10-28 21:46] LABS: INR-International Normal Ratio 1.1; PTT 28.5 sec (22.9-36.1); Prothrombin Time 14.8 sec (12.0-14.7)
[2024-10-28 21:51] LABS: Acetaminophen Less than 10 mcg/mL (Less than 10); Lipase 7 U/L (8-78); Magnesium 2.4 mg/dL (1.6-2.6); Salicylate Less than 8.0 mg/dL (Less than 8.0)
[2024-10-28 21:52] LABS: ALT (SGPT) 8 U/L (Less than 45); AST (SGOT) 26 U/L (11-34); Albumin 4.5 g/dL (3.1-4.5); Anion Gap 19 mmol/L (10-20); BUN (Urea Nitrogen) 28 mg/dL (8.9-20.6); Bilirubin, Total 0.3 mg/dL (0.3-1.2); Calc. Creatinine Clearance 0 mL/min (70-130); Calcium 9.4 mg/dL (7.8-10.44); Carbon Dioxide 19 mmol/L (22-29); Chloride 109 mmol/L (98-107); Globulin 3.2 g/dL (2.4-3.5); Glucose 102 mg/dL (70-105); Potassium 4.8 mmol/L (3.5-5.1); Sodium 142 mmol/L (136-145)
[2024-10-28] MEDS ORDERED: Nitroglycerin 2% Ointment 1 INCH/1 GM Packet ONE (22:00)
[2024-10-28 22:11] LABS: Alkaline Phosphatase 85 U/L (40-110)
[2024-10-28 22:22] LABS: D-Dimer Test Less than 0.27 mcg/mL (0.27-0.43)
[2024-10-28 23:10] LABS: Cocaine Metabolite Screen Negative (Negative); THC/Cannabinoid Screen Negative (Negative); Tricyclic Screen Negative (Negative)
[2024-10-28 23:11] LABS: Bacteria/HPF None Seen HPF (None Seen); CAUTI Indications for Culture Dysuria,urgency,freq; Glucose, Urine (Dipstick) Normal (Negative); Leukocyte Negative Leu/uL (Negative); Protein, Urine (Dipstick) Negative (Neg-Trace); RBC/HPF None Seen HPF (0-3); Specific Gravity, Urine 1.019 (1.002-1.036); WBC/HPF 0-3 HPF (0-3)
[2024-10-28 23:18] LABS: Urine Culture Reflex No No
== END 2024-10-29 01:55 | disposition home or self-care (01) ==
LOC: ERS 20:51
DX: R07.9 Chest pain, unspecified (principal); I12.9 Hypertensive chronic kidney disease with stage 1 through stage 4 chronic kidney disease, or unspecified chronic kidney disease; N18.1 Chronic kidney disease, stage 1; I25.2 Old myocardial infarction; Z79.82 Long term (current) use of aspirin; Z79.02 Long term (current) use of antithrombotics/antiplatelets
CPT/HCPCS: 36416; 71045; 80053; 80306; 80307; 81001; 83605; 83690; 83735; 83880; 84484; 85025; 85379; 85610; 85730; 93005; 94760; 96374; 96375; 96376; J2270; J2405

== ENCOUNTER 2024-10-31 10:21 | Emergency (ER) | payer OTHER ==
[2024-10-31] MEDS ORDERED: Ondansetron PF 4 MG/2 ML Vial ONE (12:13)
[2024-10-31 12:27] LABS: #Basophils 0.05 10x3/uL (0.0-0.2); #Eosinophils 0.09 10x3/uL (0.0-0.7); #Monocytes 0.63 10x3/uL (0.11-0.59); #Neutrophils 3.68 10x3/uL (1.40-6.50); %Basophils 0.9 % (0.0-1.0); %Eosinophils 1.7 % (0.0-10.0); %Lymphocytes 16.5 % (21.0-51.0); %Monocytes 11.8 % (0.0-10.0); %Neutrophils 68.9 % (42.0-75.0); Hematocrit 31.9 % (42.0-52.0); Hemoglobin 9.8 g/dL (14.0-18.0); Mean Corpuscular Hemoglobin 28.4 pg (27.0-31.0); Mean Corpuscular Volume 92.5 fL (78.0-98.0); Platelet Count 473 10x3/uL (130-400); Red Blood Cell (RBC) Count 3.45 mill/uL (4.70-6.10); White Blood Cell (WBC) Count 5.34 10x3/uL (4.8-10.8)
[2024-10-31 12:51] LABS: ALT (SGPT) 16 U/L (Less than 45); AST (SGOT) 22 U/L (11-34); Albumin 4.4 g/dL (3.1-4.5); Alkaline Phosphatase 84 U/L (40-110); Anion Gap 14 mmol/L (10-20); BUN (Urea Nitrogen) 24 mg/dL (8.9-20.6); Bilirubin, Total 0.5 mg/dL (0.3-1.2); Calc. Creatinine Clearance 0 mL/min (70-130); Calcium 9.2 mg/dL (7.8-10.44); Carbon Dioxide 17 mmol/L (22-29); Chloride 115 mmol/L (98-107); Globulin 3.1 g/dL (2.4-3.5); Glucose 103 mg/dL (70-105); Potassium 3.8 mmol/L (3.5-5.1); Sodium 142 mmol/L (136-145)
[2024-10-31] MEDS ORDERED: Ketorolac Tromethamine 30 MG (1 mL) VIAL ONE (16:11)
[2024-10-31 16:52] LABS: Bacteria/HPF None Seen HPF (None Seen); CAUTI Indications for Culture Dysuria,urgency,freq; Glucose, Urine (Dipstick) Normal (Negative); Leukocyte Negative Leu/uL (Negative); Protein, Urine (Dipstick) Negative (Neg-Trace); RBC/HPF 0-3 HPF (0-3); Specific Gravity, Urine 1.025 (1.002-1.036); WBC/HPF 0-3 HPF (0-3)
[2024-10-31 16:54] LABS: Urine Culture Reflex No No
== END 2024-10-31 17:21 | disposition home or self-care (01) ==
LOC: ERS 10:21
DX: R10.9 Unspecified abdominal pain (principal); R68.83 Chills (without fever); R06.02 Shortness of breath; M54.9 Dorsalgia, unspecified; M25.512 Pain in left shoulder; M25.511 Pain in right shoulder; I25.2 Old myocardial infarction; I12.9 Hypertensive chronic kidney disease with stage 1 through stage 4 chronic kidney disease, or unspecified chronic kidney disease; N18.1 Chronic kidney disease, stage 1; Z79.899 Other long term (current) drug therapy; Z79.01 Long term (current) use of anticoagulants
CPT/HCPCS: 36415; 71045; 71275; 74174; 80053; 81001; 83605; 83880; 84484; 85025; 85046; 86850; 86900; 86901; 87040; 87086; 93005; 96361; 96374; 96375; 96376; J1885; J2270; J2405

== ENCOUNTER 2024-11-13 19:12 | Inpatient (IN) | payer OTHER ==
[2024-11-13 19:53] LABS: #Basophils 0.04 10x3/uL (0.0-0.2); #Eosinophils 0.40 10x3/uL (0.0-0.7); #Monocytes 1.13 10x3/uL (0.11-0.59); #Neutrophils 4.64 10x3/uL (1.40-6.50); %Basophils 0.5 % (0.0-1.0); %Eosinophils 4.9 % (0.0-10.0); %Lymphocytes 23.0 % (21.0-51.0); %Monocytes 14.0 % (0.0-10.0); %Neutrophils 57.4 % (42.0-75.0); Hematocrit 29.1 % (42.0-52.0); Hemoglobin 9.7 g/dL (14.0-18.0); Mean Corpuscular Hemoglobin 28.9 pg (27.0-31.0); Mean Corpuscular Volume 86.6 fL (78.0-98.0); Platelet Count 472 10x3/uL (130-400); Red Blood Cell (RBC) Count 3.36 mill/uL (4.70-6.10); White Blood Cell (WBC) Count 8.09 10x3/uL (4.8-10.8)
[2024-11-13] MEDS ORDERED: Ondansetron PF 4 MG/2 ML Vial ONE (20:02)
[2024-11-13 20:11] LABS: ALT (SGPT) 9 U/L (Less than 45); AST (SGOT) 21 U/L (11-34); Albumin 4.0 g/dL (3.1-4.5); Alkaline Phosphatase 85 U/L (40-110); Anion Gap 14 mmol/L (10-20); BUN (Urea Nitrogen) 15 mg/dL (8.9-20.6); Bilirubin, Total 0.4 mg/dL (0.3-1.2); Calc. Creatinine Clearance 0 mL/min (70-130); Calcium 9.2 mg/dL (7.8-10.44); Carbon Dioxide 25 mmol/L (22-29); Chloride 109 mmol/L (98-107); Globulin 2.8 g/dL (2.4-3.5); Glucose 91 mg/dL (70-105); Potassium 3.6 mmol/L (3.5-5.1); Sodium 144 mmol/L (136-145)
[2024-11-13] MEDS ORDERED: HYDROmorphone 0.5 MG/0.5 ML SYRINGE ONE ×2 (21:10→23:05)
[2024-11-13 22:32] LABS: Bacteria/HPF None Seen HPF (None Seen); CAUTI Indications for Culture Pelvic or flank pain; Glucose, Urine (Dipstick) Normal (Negative); Leukocyte Negative Leu/uL (Negative); Protein, Urine (Dipstick) Negative (Neg-Trace); RBC/HPF 0-3 HPF (0-3); Specific Gravity, Urine 1.023 (1.002-1.036); WBC/HPF 0-3 HPF (0-3)
[2024-11-13 22:34] LABS: Urine Culture Reflex No No
[2024-11-14] MEDS ORDERED: Acetaminophen 325 MG TAB PO PRN (02:15)
[2024-11-14] MEDS ORDERED: Ondansetron PF 4 MG/2 ML Vial IVP PRN (02:15)
[2024-11-14 03:00] VITALS: BMI 31.8
[2024-11-14] MEDS ORDERED: Calcium Carbonate 500 MG ChewTAB PO PRN (03:08)
[2024-11-14] MEDS ORDERED: Nitroglycerin 0.4 MG TAB (25 Tab Bottle) SL PRN (03:16)
[2024-11-14] MEDS ORDERED: Electrolyte Replacement Protocol 1 EACH FS PRN (03:16)
[2024-11-14] MEDS: oxyCODONE/Acetaminophen 5 mg/325 mg Tablet PO SCH (03:42)
[2024-11-14 05:03] LABS: Anion Gap 12 mmol/L (10-20); BUN (Urea Nitrogen) 14 mg/dL (8.9-20.6); Calc. Creatinine Clearance 90 mL/min (70-130); Calcium 8.5 mg/dL (7.8-10.44); Carbon Dioxide 23 mmol/L (22-29); Chloride 111 mmol/L (98-107); Glucose 90 mg/dL (70-105); Magnesium 2.0 mg/dL (1.6-2.6); Potassium 3.4 mmol/L (3.5-5.1); Sodium 143 mmol/L (136-145)
[2024-11-14] MEDS ORDERED: Senokot S 8.6-50 MG TAB PO SCH (09:00)
[2024-11-14] MEDS: Magnesium 2 GM/50 ML(in water) 2 GM in Premix 1 BAG IVPB SCH (10:20)
[2024-11-14] MEDS: Famotidine 20 MG TAB PO SCH (10:22)
[2024-11-14] MEDS: Aspirin 81 mg Enteric Coated Tablet PO SCH (10:22)
[2024-11-14] MEDS: Metoprolol Succinate XL 25 MG ER.TAB PO SCH (10:23)
[2024-11-14] MEDS: Losartan 25 MG TAB PO SCH (10:23)
[2024-11-14] MEDS: NIFEdipine XL 30 MG ER.TAB PO SCH (10:32)
[2024-11-14] MEDS: Potassium Bicarbonate/Cit Ac 20 MEQ TAB PO SCH (12:15)
[2024-11-14] MEDS: oxyCODONE/Acetaminophen 5 mg/325 mg Tablet PO PRN (14:17)
[2024-11-14] MEDS: Senokot S 8.6-50 MG TAB PO SCH (15:10)
[2024-11-15 04:42] LABS: Hematocrit 29.0 % (42.0-52.0); Hemoglobin 9.1 g/dL (14.0-18.0); Mean Corpuscular Hemoglobin 28.6 pg (27.0-31.0); Mean Corpuscular Volume 91.2 fL (78.0-98.0); Platelet Count 422 10x3/uL (130-400); Red Blood Cell (RBC) Count 3.18 mill/uL (4.70-6.10); White Blood Cell (WBC) Count 6.13 10x3/uL (4.8-10.8)
[2024-11-15 04:49] LABS: Anion Gap 8 mmol/L (10-20); BUN (Urea Nitrogen) 20 mg/dL (8.9-20.6); Calc. Creatinine Clearance 80 mL/min (70-130); Calcium 8.5 mg/dL (7.8-10.44); Carbon Dioxide 29 mmol/L (22-29); Chloride 109 mmol/L (98-107); Glucose 120 mg/dL (70-105); Magnesium 2.3 mg/dL (1.6-2.6); Potassium 3.7 mmol/L (3.5-5.1); Sodium 142 mmol/L (136-145)
[2024-11-15 05:18] LABS: Giant Platelets 1.0 % (0-5); Platelet Adequacy Comment Platelets Normal; Polychromasia SLIGHT = 2-3 cells HPF (0-2); Schistocytes SLIGHT = 2-5 cells HPF (0-1); Smudge Cells 12.9 %
[2024-11-15] MEDS ORDERED: Communication Order-Pharmacy FS SCH (16:30)
[2024-11-16 04:13] LABS: Hematocrit 31.3 % (42.0-52.0); Hemoglobin 9.9 g/dL (14.0-18.0); Mean Corpuscular Hemoglobin 28.8 pg (27.0-31.0); Mean Corpuscular Volume 91.0 fL (78.0-98.0); Platelet Count 414 10x3/uL (130-400); Red Blood Cell (RBC) Count 3.44 mill/uL (4.70-6.10); White Blood Cell (WBC) Count 5.94 10x3/uL (4.8-10.8)
[2024-11-16 04:28] LABS: ALT (SGPT) 11 U/L (Less than 45); AST (SGOT) 18 U/L (11-34); Albumin 3.5 g/dL (3.1-4.5); Alkaline Phosphatase 75 U/L (40-110); Anion Gap 12 mmol/L (10-20); BUN (Urea Nitrogen) 23 mg/dL (8.9-20.6); Bilirubin, Total 0.6 mg/dL (0.3-1.2); Calc. Creatinine Clearance 81 mL/min (70-130); Calcium 8.5 mg/dL (7.8-10.44); Carbon Dioxide 25 mmol/L (22-29); Chloride 112 mmol/L (98-107); Globulin 2.4 g/dL (2.4-3.5); Glucose 97 mg/dL (70-105); Potassium 3.7 mmol/L (3.5-5.1); Sodium 145 mmol/L (136-145)
[2024-11-16 04:48] LABS: Platelet Adequacy Comment Platelets Normal; Polychromasia SLIGHT = 2-3 cells HPF (0-2); Smudge Cells 3.8 %
[2024-11-17 05:14] LABS: ALT (SGPT) 9 U/L (Less than 45); AST (SGOT) 17 U/L (11-34); Albumin 3.4 g/dL (3.1-4.5); Alkaline Phosphatase 77 U/L (40-110); Anion Gap 8 mmol/L (10-20); BUN (Urea Nitrogen) 20 mg/dL (8.9-20.6); Bilirubin, Total 0.4 mg/dL (0.3-1.2); Calc. Creatinine Clearance 85 mL/min (70-130); Calcium 8.6 mg/dL (7.8-10.44); Carbon Dioxide 26 mmol/L (22-29); Chloride 109 mmol/L (98-107); Globulin 2.7 g/dL (2.4-3.5); Glucose 109 mg/dL (70-105); Potassium 3.7 mmol/L (3.5-5.1); Sodium 139 mmol/L (136-145)
[2024-11-17 05:50] LABS: #Basophils 0.05 10x3/uL (0.0-0.2); #Eosinophils 0.42 10x3/uL (0.0-0.7); #Monocytes 0.99 10x3/uL (0.11-0.59); #Neutrophils 2.04 10x3/uL (1.40-6.50); %Basophils 0.9 % (0.0-1.0); %Eosinophils 7.9 % (0.0-10.0); %Lymphocytes 33.5 % (21.0-51.0); %Monocytes 18.6 % (0.0-10.0); %Neutrophils 38.5 % (42.0-75.0); Hematocrit 31.3 % (42.0-52.0); Hemoglobin 9.9 g/dL (14.0-18.0); Mean Corpuscular Hemoglobin 28.2 pg (27.0-31.0); Mean Corpuscular Volume 89.2 fL (78.0-98.0); Platelet Count 406 10x3/uL (130-400); Red Blood Cell (RBC) Count 3.51 mill/uL (4.70-6.10); White Blood Cell (WBC) Count 5.31 10x3/uL (4.8-10.8)
[2024-11-17] MEDS: Transdermal Patch Removal TOP SCH (21:43)
[2024-11-18 05:38] LABS: Hematocrit 32.0 % (42.0-52.0); Hemoglobin 10.1 g/dL (14.0-18.0); Mean Corpuscular Hemoglobin 28.4 pg (27.0-31.0); Mean Corpuscular Volume 89.9 fL (78.0-98.0); Platelet Count 417 10x3/uL (130-400); Red Blood Cell (RBC) Count 3.56 mill/uL (4.70-6.10); White Blood Cell (WBC) Count 5.65 10x3/uL (4.8-10.8)
[2024-11-18 05:47] LABS: ALT (SGPT) 9 U/L (Less than 45); AST (SGOT) 19 U/L (11-34); Albumin 3.5 g/dL (3.1-4.5); Alkaline Phosphatase 78 U/L (40-110); Anion Gap 12 mmol/L (10-20); BUN (Urea Nitrogen) 20 mg/dL (8.9-20.6); Bilirubin, Total 0.4 mg/dL (0.3-1.2); Calc. Creatinine Clearance 80 mL/min (70-130); Calcium 8.7 mg/dL (7.8-10.44); Carbon Dioxide 23 mmol/L (22-29); Chloride 108 mmol/L (98-107); Globulin 2.8 g/dL (2.4-3.5); Glucose 119 mg/dL (70-105); Potassium 3.6 mmol/L (3.5-5.1); Sodium 139 mmol/L (136-145)
[2024-11-18 06:10] LABS: Platelet Adequacy Comment Platelets Normal; Polychromasia SLIGHT = 2-3 cells HPF (0-2); Smudge Cells 13.7 %
[2024-11-18] MEDS ORDERED: Heparin 10,000 UNITS/ 10 ML VIAL ONE (13:40)
[2024-11-18] MEDS ORDERED: Lidocaine 1% (PF) 30 ML VIAL ONE (13:41)
[2024-11-18] MEDS ORDERED: Nitroglycerin 50 MG/250 ML BOT 0 ML ONE (13:41)
[2024-11-18] MEDS ORDERED: Communication Order-Pharmacy FS SCH (22:00)
[2024-11-19 04:28] LABS: ALT (SGPT) 7 U/L (Less than 45); AST (SGOT) 15 U/L (11-34); Albumin 3.6 g/dL (3.1-4.5); Alkaline Phosphatase 76 U/L (40-110); Anion Gap 13 mmol/L (10-20); BUN (Urea Nitrogen) 22 mg/dL (8.9-20.6); Bilirubin, Total 0.5 mg/dL (0.3-1.2); Calc. Creatinine Clearance 69 mL/min (70-130); Calcium 8.5 mg/dL (7.8-10.44); Carbon Dioxide 24 mmol/L (22-29); Chloride 108 mmol/L (98-107); Globulin 2.4 g/dL (2.4-3.5); Glucose 121 mg/dL (70-105); Hematocrit 32.5 % (42.0-52.0); Hemoglobin 10.1 g/dL (14.0-18.0); Mean Corpuscular Hemoglobin 28.5 pg (27.0-31.0); Mean Corpuscular Volume 91.5 fL (78.0-98.0); Platelet Count 381 10x3/uL (130-400); Potassium 3.7 mmol/L (3.5-5.1); Red Blood Cell (RBC) Count 3.55 mill/uL (4.70-6.10); Sodium 141 mmol/L (136-145); White Blood Cell (WBC) Count 6.04 10x3/uL (4.8-10.8)
[2024-11-19 05:09] LABS: Anisocytosis SLIGHT = 6-15 cells HPF (0-5); Burr Cells MODERATE= 6-15 cells HPF (0-1); Platelet Adequacy Comment Platelets Normal; Poikilocytosis SLIGHT = 6-15 cells HPF (0-5); Polychromasia SLIGHT = 2-3 cells HPF (0-2); Schistocytes SLIGHT = 2-5 cells HPF (0-1); Smudge Cells 2.9 %
[2024-11-19] MEDS ORDERED: Heparin 10,000 UNITS/ 10 ML VIAL ONE (07:39)
[2024-11-19] MEDS ORDERED: Lidocaine 1% (PF) 30 ML VIAL ONE (07:39)
[2024-11-19] MEDS ORDERED: Adenosine 6 mg (2 mL) VIAL ONE (07:39)
[2024-11-19] MEDS ORDERED: EPINEPHrine 1 MG/10 ML Abboject SYRINGE ONE (07:39)
[2024-11-19] MEDS ORDERED: Nitroglycerin 50 MG/250 ML BOT 0 ML ONE (07:39)
[2024-11-19] MEDS ORDERED: PHENYLEPHRINE-NS 100 MCG/ML 10 ML SYRINGE ONE (07:40)
[2024-11-19] MEDS ORDERED: Iopamidol 370 76% 100 ML VIAL ONE (15:07)
[2024-11-20 04:11] LABS: #Basophils 0.06 10x3/uL (0.0-0.2); #Eosinophils 0.26 10x3/uL (0.0-0.7); #Monocytes 1.30 10x3/uL (0.11-0.59); #Neutrophils 4.46 10x3/uL (1.40-6.50); %Basophils 0.8 % (0.0-1.0); %Eosinophils 3.3 % (0.0-10.0); %Lymphocytes 23.4 % (21.0-51.0); %Monocytes 16.3 % (0.0-10.0); %Neutrophils 55.8 % (42.0-75.0); Hematocrit 32.4 % (42.0-52.0); Hemoglobin 10.1 g/dL (14.0-18.0); Mean Corpuscular Hemoglobin 28.5 pg (27.0-31.0); Mean Corpuscular Volume 91.3 fL (78.0-98.0); Platelet Count 405 10x3/uL (130-400); Red Blood Cell (RBC) Count 3.55 mill/uL (4.70-6.10); White Blood Cell (WBC) Count 7.98 10x3/uL (4.8-10.8)
[2024-11-20 04:39] LABS: ALT (SGPT) 8 U/L (Less than 45); AST (SGOT) 16 U/L (11-34); Albumin 3.8 g/dL (3.1-4.5); Alkaline Phosphatase 79 U/L (40-110); Anion Gap 11 mmol/L (10-20); BUN (Urea Nitrogen) 21 mg/dL (8.9-20.6); Bilirubin, Total 0.4 mg/dL (0.3-1.2); Calc. Creatinine Clearance 74 mL/min (70-130); Calcium 8.6 mg/dL (7.8-10.44); Carbon Dioxide 24 mmol/L (22-29); Chloride 109 mmol/L (98-107); Globulin 2.6 g/dL (2.4-3.5); Glucose 106 mg/dL (70-105); Potassium 3.6 mmol/L (3.5-5.1); Sodium 140 mmol/L (136-145)
[2024-11-20 09:11] VITALS: TEMP 97.9
[2024-11-20 11:12] VITALS: BP 124/76
== END 2024-11-20 14:46 | disposition home or self-care (01) | DRG 287 ==
LOC: ERS 19:12 → 2NO 11-14 01:57 → OBSVTOIN 11-15 16:42
PROVIDERS: ADMIT Internal Medicine; ATTEND Internal Medicine
PROC: 30233N1 Transfusion of Nonautologous Red Blood Cells into Peripheral Vein, Percutaneous Approach (ICD-10-PCS; 2024-11-15)
PROC: B2111ZZ Fluoroscopy of Multiple Coronary Arteries using Low Osmolar Contrast (ICD-10-PCS; principal; 2024-11-19)
PROC: 4A023N7 Measurement of Cardiac Sampling and Pressure, Left Heart, Percutaneous Approach (ICD-10-PCS; 2024-11-19)
DX: R07.9 Chest pain, unspecified (principal); I50.32 Chronic diastolic (congestive) heart failure; I13.0 Hypertensive heart and chronic kidney disease with heart failure and stage 1 through stage 4 chronic kidney disease, or unspecified chronic kidney disease; F32.A Depression, unspecified; I34.0 Nonrheumatic mitral (valve) insufficiency; M54.50 Low back pain, unspecified; K59.00 Constipation, unspecified; I25.10 Atherosclerotic heart disease of native coronary artery without angina pectoris; R31.9 Hematuria, unspecified; D58.0 Hereditary spherocytosis; I95.1 Orthostatic hypotension; N18.30 Chronic kidney disease, stage 3 unspecified; D64.9 Anemia, unspecified; F41.9 Anxiety disorder, unspecified; N40.1 Benign prostatic hyperplasia with lower urinary tract symptoms; Z87.442 Personal history of urinary calculi; I25.2 Old myocardial infarction; Z95.5 Presence of coronary angioplasty implant and graft; Z98.890 Other specified postprocedural states; Z90.49 Acquired absence of other specified parts of digestive tract; Z90.81 Acquired absence of spleen; Z88.8 Allergy status to other drugs, medicaments and biological substances; Z88.0 Allergy status to penicillin; Z79.899 Other long term (current) drug therapy; Z79.01 Long term (current) use of anticoagulants; Z79.02 Long term (current) use of antithrombotics/antiplatelets; Z86.711 Personal history of pulmonary embolism
CPT/HCPCS: 36415; 36430; 70496; 70498; 71045; 72148; 74176; 80048; 80053; 81001; 83735; 83880; 84100; 84484; 85025; 86850; 86900; 86901; 93005; 93458; 94760; 96361; 96374; 96375; 96376; 99152; G0378; J0153; J0165; J0461; J1171; J1644; J2250; J2270; J2405; J3010; J3475; P9016; Q9967

== ENCOUNTER 2024-11-23 19:06 | Emergency (ER) | payer OTHER ==
[2024-11-23 20:01] LABS: #Basophils 0.03 10x3/uL (0.0-0.2); #Eosinophils 0.09 10x3/uL (0.0-0.7); #Monocytes 1.13 10x3/uL (0.11-0.59); #Neutrophils 4.99 10x3/uL (1.40-6.50); %Basophils 0.4 % (0.0-1.0); %Eosinophils 1.1 % (0.0-10.0); %Lymphocytes 21.4 % (21.0-51.0); %Monocytes 14.2 % (0.0-10.0); %Neutrophils 62.6 % (42.0-75.0); Hematocrit 34.6 % (42.0-52.0); Hemoglobin 11.1 g/dL (14.0-18.0); Mean Corpuscular Hemoglobin 28.5 pg (27.0-31.0); Mean Corpuscular Volume 88.7 fL (78.0-98.0); Platelet Count 461 10x3/uL (130-400); Red Blood Cell (RBC) Count 3.90 mill/uL (4.70-6.10); White Blood Cell (WBC) Count 7.96 10x3/uL (4.8-10.8)
[2024-11-23 20:18] LABS: ALT (SGPT) 8 U/L (Less than 45); AST (SGOT) 24 U/L (11-34); Albumin 4.4 g/dL (3.1-4.5); Alkaline Phosphatase 94 U/L (40-110); Anion Gap 19 mmol/L (10-20); BUN (Urea Nitrogen) 18 mg/dL (8.9-20.6); Bilirubin, Total 0.6 mg/dL (0.3-1.2); Calc. Creatinine Clearance 0 mL/min (70-130); Calcium 9.7 mg/dL (7.8-10.44); Carbon Dioxide 17 mmol/L (22-29); Chloride 113 mmol/L (98-107); Globulin 3.4 g/dL (2.4-3.5); Glucose 105 mg/dL (70-105); Potassium 3.6 mmol/L (3.5-5.1); Sodium 145 mmol/L (136-145)
[2024-11-23 20:26] LABS: INR-International Normal Ratio 1.1; PTT 30.6 sec (22.9-36.1); Prothrombin Time 14.0 sec (12.0-14.7)
[2024-11-23 20:38] LABS: Acetaminophen Less than 10 mcg/mL (Less than 10); Salicylate Less than 8.0 mg/dL (Less than 8.0)
[2024-11-23] MEDS ORDERED: Ondansetron PF 4 MG/2 ML Vial ONE (20:51)
[2024-11-23] MEDS ORDERED: Acetaminophen 500 MG TAB ONE (20:51)
== END 2024-11-23 21:23 | disposition home or self-care (01) ==
LOC: ERS 19:06
DX: M54.6 Pain in thoracic spine (principal); G89.29 Other chronic pain; R53.1 Weakness; R20.2 Paresthesia of skin; I25.2 Old myocardial infarction; I12.9 Hypertensive chronic kidney disease with stage 1 through stage 4 chronic kidney disease, or unspecified chronic kidney disease; N18.1 Chronic kidney disease, stage 1; R29.700 NIHSS score 0; Z55.6 Problems related to health literacy
CPT/HCPCS: 36416; 70450; 70496; 70498; 71045; 80053; 80307; 83880; 84484; 85025; 85610; 85730; 87426; 93005; 94760; 96361; 96374; J2405; Q9967